=== PATIENT | female | born 1985 | race Caucasian/White ===

== ENCOUNTER → 2016-04-08 | Outpatient (REF) | payer OTHER, MEDICAID, BC ==
[~2016-04-08] MED LIST: ACET50TA PO; ADDERALL 5 MG PO; ANUS2.5C2 TOP; ATIV1TAB2 OR; B12-1CHW PO; BENZ2TAB OR; CLAR10CA3 PO; COLA100C2 OR; DOCU10ELUD PO; FLON0.054; IBUP80TA PO; LEXA1TAB2 PO; LIDO1OIN2 TOP; MUCI600T34 PO; PEPC10TA PO; PRENTAB9 PO; QUETIAPINE 50 MG PO; RISP1TAB41 PO; SUMA100T2 PO; TRAZ50TA OR; TRAZ50TA4 PO; VERA40TA PO; ZOLO100T PO; ZYPR10TA OR; imitrex PO
== END ==
LOC: M LAB REF 13:14
PROVIDERS: ATTEND Physician Assistant
DX: J02.9 Acute pharyngitis, unspecified (principal)

== ENCOUNTER → 2016-07-21 | Outpatient (REF) | payer OTHER | LOC: M SFHCPLAZ 11:25 | PROVIDERS: ATTEND Family Medicine | DX: Z12.4 Encounter for screening for malignant neoplasm of cervix (principal); A59.9 Trichomoniasis, unspecified | CPT/HCPCS: 87491; 87591; G0123 ==

== ENCOUNTER → 2017-10-09 | Outpatient (CLI) | payer OTHER | LOC: M PAIN 10:00 | DX: G89.29 Other chronic pain (principal); M79.1 Myalgia; M54.5 Low back pain; M54.6 Pain in thoracic spine; M47.816 Spondylosis without myelopathy or radiculopathy, lumbar region; F31.9 Bipolar disorder, unspecified; G43.909 Migraine, unspecified, not intractable, without status migrainosus; F17.210 Nicotine dependence, cigarettes, uncomplicated; Z79.899 Other long term (current) drug therapy; Z88.2 Allergy status to sulfonamides | CPT/HCPCS: G0463 ==

== ENCOUNTER → 2017-12-18 | Outpatient (REF) | payer OTHER, MEDICAID ==
[2017-12-18 13:39] LABS: PLATELET COUNT, AUTOMATED 270 10^3/uL (150-450)
[2017-12-18 14:07] LABS: ALBUMIN/GLOBULIN RATIO 1.11 (1.00-1.93); ALKALINE PHOSPHATASE 81 U/L (45-117); ALT/SGPT 27 U/L (12-78); AST/SGOT 15 U/L (7-37); BILIRUBIN,DIRECT < 0.1 MG/DL (0.0-0.2); BILIRUBIN,TOTAL 0.3 MG/DL (0.2-1.0); TOTAL PROTEIN 7.6 GM/DL (6.4-8.2)
== END ==
LOC: M LABDRAW1 12:10
DX: Z79.899 Other long term (current) drug therapy (principal)
CPT/HCPCS: 80076

== ENCOUNTER → 2017-12-25 | Outpatient (CLI) | payer OTHER, MEDICAID ==
[2017-12-25 10:23] LABS: CHOLESTEROL LEVEL 162 MG/DL (<200); CHOLESTEROL RISK RATIO 4.378 (<5); GLUCOSE, FASTING 86 MG/DL (70-100); HDL CHOLESTEROL 37 MG/DL (>40); LDL CHOLESTEROL 107 MG/DL (<100); NON-HDL-C 125 MG/DL; TRIGLYCERIDES LEVEL 90 MG/DL (<150); VALPROIC ACID (DEPAKOTE) 54.7 UG/ML (50.0-100.0)
== END ==
LOC: M LAB 08:47
DX: Z51.81 Encounter for therapeutic drug level monitoring (principal); Z79.899 Other long term (current) drug therapy
CPT/HCPCS: 82947

== ENCOUNTER → 2018-01-19 | Outpatient (CLI) | payer OTHER, MEDICAID ==
[2018-01-19 09:30] LABS: PLATELET COUNT, AUTOMATED 275 10^3/uL (150-450)
[2018-01-19 10:10] LABS: ALBUMIN 3.6 GM/DL (3.2-5.2); ALBUMIN/GLOBULIN RATIO 1.13 (1.00-1.93); ALKALINE PHOSPHATASE 80 U/L (45-117); ALT/SGPT 37 U/L (12-78); AST/SGOT 23 U/L (7-37); BILIRUBIN,DIRECT < 0.1 MG/DL (0.0-0.2); BILIRUBIN,TOTAL 0.2 MG/DL (0.2-1.0); TOTAL PROTEIN 6.8 GM/DL (6.4-8.2); VALPROIC ACID (DEPAKOTE) 61.6 UG/ML (50.0-100.0)
== END ==
LOC: M LAB 08:42
DX: Z79.899 Other long term (current) drug therapy (principal)
CPT/HCPCS: 80164

== ENCOUNTER → 2018-05-14 | Outpatient (REF) | payer OTHER, MEDICAID ==
[~2018-05-14] MED LIST changes: -MUCI600T34 PO; +MUCI600T37 PO; -RISP1TAB41 PO; +RISP1TAB42 PO; +TRAZ-160 PO; -TRAZ50TA4 PO
[2018-05-14 18:59] LABS: INFLUENZA A AMPLIFICATION POSITIVE (NEGATIVE); INFLUENZA B AMPLIFICATION NEGATIVE (NEGATIVE)
== END ==
LOC: M LAB REF 17:22
PROVIDERS: ATTEND Physician Assistant
DX: J11.1 Influenza due to unidentified influenza virus with other respiratory manifestations (principal)

== ENCOUNTER → 2018-06-11 | Outpatient (CLI) | payer OTHER ==
[~2018-06-11] MED LIST changes: -ACET50TA PO; -DOCU10ELUD PO; +DOCU5LIQ PO; +MAPA500T17 PO
[2018-06-11 09:25] LABS: ALBUMIN 3.6 GM/DL (3.2-5.2); ALT/SGPT 53 U/L (12-78); BILIRUBIN,DIRECT < 0.1 MG/DL (0.0-0.2); BILIRUBIN,TOTAL 0.2 MG/DL (0.2-1.0); TOTAL PROTEIN 6.8 GM/DL (6.4-8.2); VALPROIC ACID (DEPAKOTE) 116.2 UG/ML (50.0-100.0)
== END ==
LOC: M LAB 08:30
PROVIDERS: ATTEND Psychiatry & Neurology Psychiatry
DX: Z51.81 Encounter for therapeutic drug level monitoring (principal); Z79.899 Other long term (current) drug therapy

== ENCOUNTER → 2018-06-14 | Outpatient (REF) | payer OTHER | LOC: M LAB REF 14:36 | PROVIDERS: ATTEND Psychiatry & Neurology Psychiatry | DX: Z51.81 Encounter for therapeutic drug level monitoring (principal); Z79.899 Other long term (current) drug therapy ==

== ENCOUNTER → 2019-01-18 | Outpatient (REF) | payer OTHER, MEDICAID ==
[~2019-01-18] MED LIST changes: -TRAZ-160 PO; +TRAZ-252 PO
== END ==
LOC: M LAB REF 11:43
PROVIDERS: ATTEND Physician Assistant Medical
DX: J02.0 Streptococcal pharyngitis (principal)

== ENCOUNTER → 2019-02-05 | Outpatient (REF) | payer OTHER ==
[2019-02-05 13:58] LABS: APPEARANCE, URINE TURBID (CLEAR); BACTERIA, URINE AUTO 2+ (NEGATIVE); BILIRUBIN, URINE AUTO NEGATIVE (NEGATIVE); BLOOD, URINE BLOOD 1+ (NEGATIVE); COLOR, URINE AMBER (YELLOW); GLUCOSE, URINE (UA) AUTO NEGATIVE (NEGATIVE); KETONE, URINE AUTO NEGATIVE (NEGATIVE); LEUKOCYTE ESTERASE, URINE AUTO 3+ (NEGATIVE); NITRITE, URINE AUTO NEGATIVE (NEGATIVE); PROTEIN, URINE AUTO 2+ mg/dL (NEGATIVE); RBC, URINE AUTO 51 /HPF (0-3); SPECIFIC GRAVITY URINE AUTO 1.023 (1.002-1.035); SQUAMOUS EPITHELIAL CELL UR AU 113 /HPF (0-6); WBC, URINE AUTO TNTC /HPF (0-3)
== END ==
LOC: M LAB 13:17
PROVIDERS: ATTEND Nurse Practitioner Family
DX: R30.0 Dysuria (principal)

== ENCOUNTER → 2019-02-19 | Outpatient (REF) | payer OTHER, MEDICAID ==
[2019-02-19 18:30] LABS: APPEARANCE, URINE CLOUDY (CLEAR); BILIRUBIN, URINE AUTO NEGATIVE (NEGATIVE); BLOOD, URINE BLOOD NEGATIVE (NEGATIVE); COLOR, URINE YELLOW (YELLOW); GLUCOSE, URINE (UA) AUTO NEGATIVE (NEGATIVE); KETONE, URINE AUTO NEGATIVE (NEGATIVE); LEUKOCYTE ESTERASE, URINE AUTO 3+ (NEGATIVE); NITRITE, URINE AUTO NEGATIVE (NEGATIVE); PROTEIN, URINE AUTO 1+ mg/dL (NEGATIVE); SPECIFIC GRAVITY URINE AUTO 1.019 (1.002-1.035); UROBILINOGEN, URINE AUTO 0.2 mg/dL (0.0-2.0)
[2019-02-19 18:34] LABS: BACTERIA, URINE SMALL AMOUNT; SQUAMOUS EPITHELIAL CELL URINE SMALL AMOUNT /hpf (SMALL AMT); TRICHOMONAS, URINE SMALL AMOUNT
[2019-02-19 18:40] LABS: HYALINE CAST, URINE NONE SEEN /lpf (0-1)
[2019-02-19 19:44] LABS: CHLAMYDIA DNA AMPLIFICATION NEGATIVE (NEGATIVE); GC DNA AMPLIFICATION NEGATIVE (NEGATIVE)
== END ==
LOC: M LAB REF 10:30
PROVIDERS: ATTEND Physician Assistant
DX: N39.0 Urinary tract infection, site not specified (principal)

== ENCOUNTER → 2019-03-21 | Outpatient (REF) | payer OTHER ==
[2019-03-21 21:17] LABS: APPEARANCE, URINE HAZY (CLEAR); BACTERIA, URINE AUTO 1+ (NEGATIVE); BILIRUBIN, URINE AUTO NEGATIVE (NEGATIVE); BLOOD, URINE BLOOD NEGATIVE (NEGATIVE); COLOR, URINE STRAW (YELLOW); GLUCOSE, URINE (UA) AUTO NEGATIVE (NEGATIVE); KETONE, URINE AUTO NEGATIVE (NEGATIVE); LEUKOCYTE ESTERASE, URINE AUTO NEGATIVE (NEGATIVE); NITRITE, URINE AUTO NEGATIVE (NEGATIVE); PROTEIN, URINE AUTO NEGATIVE (NEGATIVE); RBC, URINE AUTO 1 /HPF (0-3); SPECIFIC GRAVITY URINE AUTO 1.002 (1.002-1.035); SQUAMOUS EPITHELIAL CELL UR AU 6 /HPF (0-6); UROBILINOGEN, URINE AUTO 0.2 mg/dL (0.0-2.0); WBC, URINE AUTO 1 /HPF (0-3)
== END ==
LOC: M LAB REF 21:06
PROVIDERS: ATTEND Physician Assistant
DX: N39.0 Urinary tract infection, site not specified (principal)

== ENCOUNTER → 2019-04-06 | Outpatient (REF) | payer OTHER ==
[2019-04-06 20:21] LABS: APPEARANCE, URINE CLOUDY (CLEAR); BACTERIA, URINE AUTO NEGATIVE (NEGATIVE); BILIRUBIN, URINE AUTO NEGATIVE (NEGATIVE); BLOOD, URINE BLOOD NEGATIVE (NEGATIVE); COLOR, URINE YELLOW (YELLOW); GLUCOSE, URINE (UA) AUTO NEGATIVE (NEGATIVE); KETONE, URINE AUTO NEGATIVE (NEGATIVE); LEUKOCYTE ESTERASE, URINE AUTO TRACE (NEGATIVE); MUCUS, URINE SMALL (NEGATIVE); NITRITE, URINE AUTO NEGATIVE (NEGATIVE); PROTEIN, URINE AUTO NEGATIVE (NEGATIVE); RBC, URINE AUTO 5 /HPF (0-3); SPECIFIC GRAVITY URINE AUTO 1.016 (1.002-1.035); SQUAMOUS EPITHELIAL CELL UR AU 17 /HPF (0-6); UROBILINOGEN, URINE AUTO 0.2 mg/dL (0.0-2.0); WBC, URINE AUTO 5 /HPF (0-3)
== END ==
LOC: M LAB REF 19:54
PROVIDERS: ATTEND Physician Assistant
DX: N39.0 Urinary tract infection, site not specified (principal)

== ENCOUNTER → 2019-04-14 | Outpatient (REF) | payer OTHER ==
[2019-04-14 16:29] LABS: INFLUENZA A AMPLIFICATION NEGATIVE (NEGATIVE); INFLUENZA B AMPLIFICATION NEGATIVE (NEGATIVE)
== END ==
LOC: M LAB REF 15:11
PROVIDERS: ATTEND Physician Assistant
DX: J10.1 Influenza due to other identified influenza virus with other respiratory manifestations (principal)

== ENCOUNTER → 2019-04-14 | Outpatient (REF) | payer OTHER | LOC: M LAB REF 13:27 | PROVIDERS: ATTEND Physician Assistant | DX: R30.0 Dysuria (principal) ==

== ENCOUNTER → 2019-04-21 | Outpatient (REF) | payer OTHER ==
[~2019-04-21] MED LIST changes: +ALLE10TA62 PO; +BACL10TA2 PO; +BUSP30TA PO; +GABA600T4 PO; +INVE234I IM; +MELO15TA28 PO; +METH1TAB40 PO; +MUCI600T31 PO; +OSEL75CA2 PO; +VALA1TAB5 PO; +VERA120C3 PO; +VYVA50CA4 PO
[2019-04-21 12:26] LABS: APPEARANCE, URINE CLEAR (CLEAR); BACTERIA, URINE AUTO NEGATIVE (NEGATIVE); BILIRUBIN, URINE AUTO NEGATIVE (NEGATIVE); BLOOD, URINE BLOOD NEGATIVE (NEGATIVE); COLOR, URINE STRAW (YELLOW); GLUCOSE, URINE (UA) AUTO NEGATIVE (NEGATIVE); KETONE, URINE AUTO NEGATIVE (NEGATIVE); LEUKOCYTE ESTERASE, URINE AUTO NEGATIVE (NEGATIVE); NITRITE, URINE AUTO NEGATIVE (NEGATIVE); PROTEIN, URINE AUTO NEGATIVE (NEGATIVE); RBC, URINE AUTO 0 /HPF (0-3); SPECIFIC GRAVITY URINE AUTO 1.003 (1.002-1.035); SQUAMOUS EPITHELIAL CELL UR AU 2 /HPF (0-6); UROBILINOGEN, URINE AUTO 0.2 mg/dL (0.0-2.0); WBC, URINE AUTO 0 /HPF (0-3)
== END ==
LOC: M SFHCPLAZ 11:38
PROVIDERS: ATTEND Family Medicine
DX: Z12.4 Encounter for screening for malignant neoplasm of cervix (principal); R30.0 Dysuria

== ENCOUNTER 2019-04-24 08:25 | Inpatient (IN) | payer MEDICAID, OTHER ==
[~2019-04-24] VITALS: Ht 160 cm; Wt 74.6 kg
[~2019-04-24 08:25] MED LIST changes: -ALLE10TA62 PO; -BACL10TA2 PO; -BUSP30TA PO; -GABA600T4 PO; -INVE234I IM; -MELO15TA28 PO; -METH1TAB40 PO; -MUCI600T31 PO; -OSEL75CA2 PO; -VALA1TAB5 PO; -VERA120C3 PO; -VYVA50CA4 PO
[2019-04-24] MEDS ORDERED: NS 1,000 ML IV ONE (08:45)
[2019-04-24 08:55] LABS: VENOUS BASE EXCESS -1.4 (-2.0-2.0); VENOUS HCO3 22.2 MEQ/L (23.0-27.0); VENOUS O2 SATURATION 98.3 % (60.0-80.0); VENOUS PARTIAL PRESSURE CO2 34.5 mmHg (38.0-50.0); VENOUS PARTIAL PRESSURE O2 104.5 mmHg (30.0-50.0); VENOUS PH 7.426 UNITS (7.330-7.430); VENOUS STANDARD HCO3 23.3 MEQ/L; VENOUS TOTAL CO2 23.2 MEQ/L (24.0-28.0)
[2019-04-24 09:00] LABS: BASO % 0.3 % (0.0-1.0); EOS # 0.2 10^3/uL (0.0-0.5); EOS % 2.6 % (0.0-3.0); HEMATOCRIT 43.8 % (36.0-47.0); HEMOGLOBIN 15.1 g/dl (12.0-15.5); LYMPH # 1.3 10^3/uL (1.5-5.0); LYMPH % 20.6 % (24.0-44.0); MEAN CORPUSCULAR HGB CONC 34.5 g/dl (32.0-36.5); MEAN CORPUSCULAR VOLUME 92.8 fl (80.0-96.0); MONO # 0.4 10^3/uL (0.0-0.8); MONO % 5.8 % (0.0-5.0); NEUTROPHILS # 4.6 10^3/uL (1.5-8.5); NEUTROPHILS % 70.5 % (36.0-66.0); PLATELET COUNT, AUTOMATED 283 10^3/uL (150-450); RED BLOOD COUNT 4.72 10^6/uL (4.00-5.40); WHITE BLOOD COUNT 6.5 10^3/uL (4.0-10.0)
[2019-04-24] MEDS: VERAPAMIL 120 MG SR TAB PO SCH (09:00)
[2019-04-24] MEDS ORDERED: METH1TAB40 PO (09:04)
[2019-04-24] MEDS ORDERED: VERA120C3 PO (09:04)
[2019-04-24] MEDS ORDERED: MELO15TA28 PO (09:04)
[2019-04-24] MEDS ORDERED: BACL10TA2 PO (09:04)
[2019-04-24] MEDS ORDERED: OSEL75CA2 PO (09:04)
[2019-04-24] MEDS ORDERED: VALA1TAB5 PO (09:04)
[2019-04-24] MEDS ORDERED: GABA600T4 PO (09:04)
[2019-04-24] MEDS ORDERED: ALLE10TA62 PO (09:04)
[2019-04-24] MEDS ORDERED: BUSP30TA PO (09:04)
--- NOTE | 2019-04-24 09:33 | REP ---
CT of the brain without IV contrast: Comparison is 12/17/2014. There is no acute intracranial hemorrhage. There is no edema, mass effect or midline shift. The ventricles are normal size and midline. The cortical stripe is unremarkable. The visualized paranasal sinuses and mastoid air cells are clear. Impression: Essentially negative emergency CT study of the brain. There is no interval change. Electronically Signed by Boo Perez MD 04/24/2019 09:25 A
--- NOTE | 2019-04-24 09:38 | REP ---
Portable chest, 09:11 a.m., single AP view with the patient semi upright: Comparison is the PA and lateral chest dated 11/11/2013. The lung mcgrath are clear. The cardiac size is normal. The nathan, mediastinum, and skeletal structures are unremarkable. Impression: Negative portable chest. There is no interval change. Electronically Signed by Boo Perez MD 04/24/2019 09:29 A
[2019-04-24 09:44] LABS: OSMOLALITY SERUM 294 MOSM/KG (275-295)
[2019-04-24 09:48] LABS: BLOOD UREA NITROGEN 13 MG/DL (7-18); CALCIUM LEVEL 8.8 MG/DL (8.5-10.1); CARBON DIOXIDE LEVEL 22 MEQ/L (21-32); CHLORIDE LEVEL 109 MEQ/L (98-107); CREATININE FOR GFR 0.66 MG/DL (0.55-1.30); GLOMERULAR FILTRATION RATE > 60.0 (>60); GLUCOSE, FASTING 99 MG/DL (70-100); POTASSIUM SERUM 4.6 MEQ/L (3.5-5.1); SODIUM LEVEL 140 MEQ/L (136-145)
[2019-04-24 09:49] LABS: ACETAMINOPHEN LEVEL < 2.0 UG/ML (10.0-30.0); ALBUMIN 4.4 GM/DL (3.2-5.2); ALT/SGPT 40 U/L (12-78); BILIRUBIN,DIRECT < 0.1 MG/DL (0.0-0.2); BILIRUBIN,TOTAL 0.5 MG/DL (0.2-1.0); CPK CREATINE PHOSPHOKINASE 221 U/L (26-192); ETHYL ALCOHOL (ETHANOL) < 0.003 % (0.000-0.010); SALICYLATE LEVEL 4.4 MG/DL (5.0-30.0); TOTAL PROTEIN 7.6 GM/DL (6.4-8.2); TROPONIN I < 0.02 NG/ML (< 0.10)
[2019-04-24 10:35] LABS: AMPHETAMINES LEVEL URINE NEGATIVE (NEGATIVE); BARBITURATES URINE NEGATIVE (NEGATIVE); BENZODIAZEPINES URINE NEGATIVE (NEGATIVE); CANNABINOIDS URINE POSITIVE (NEGATIVE); COCAINE METABOLITE URINE NEGATIVE (NEGATIVE); METHADONE URINE NEGATIVE (NEGATIVE); OPIATES URINE NEGATIVE (NEGATIVE); PHENCYCLIDINE URINE NEGATIVE (NEGATIVE)
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
[2019-04-24] MEDS ORDERED: B12-1CHW PO (13:24)
[2019-04-24] MEDS ORDERED: INVE234I IM (13:24)
[2019-04-24] MEDS ORDERED: VYVA50CA4 PO (13:24)
[2019-04-24] MEDS ORDERED: MUCI600T31 PO (13:24)
[2019-04-24] MEDS ORDERED: LORazepam 2 MG/ML VIAL (J2060) IV STA (13:49)
[2019-04-24] MEDS ORDERED: MAALOX 30 ML SUSP *UDC PO PRN (14:00)
[2019-04-24 16:07] VITALS: BP 135/75
[2019-04-24] MEDS: GABAPENTIN 300 MG CAP PO SCH ×2 (17:24→20:08)
[2019-04-24] MEDS: LORazepam 1 MG TAB PO SCH ×2 (18:03→23:54)
--- NOTE | 2019-04-24 20:56 | ECGEPIP ---
[facility] - ED Test Date: 2019-04-24 Pat Name: BEATRICE HURST Department: Room: - Gender: Female Director Of Investigations: : 1985 Requested By: EDNA Davey Order Number: [id number] Reading MD: Cristiane Vega Measurements Intervals [place] Rate: 86 P: 43 WY: 140 QRS: 66 QRSD: 96 T: 41 QT: 370 QTc: 444 Interpretive Statements SINUS RHYTHM SIMILAR 11/16/14 Electronically Signed on 04-24-2019 20:56:18 EST by Cristiane Vega
[2019-04-24] MEDS: ACETAMINOPHEN TAB 650MG DOSE (2X325MG) PO PRN (21:59)
[2019-04-25] MEDS: LORazepam 1 MG TAB PO SCH (05:36)
[2019-04-25 06:48] VITALS: BP 120/83
[2019-04-25] MEDS: VERAPAMIL 120 MG SR TAB PO SCH (08:36)
[2019-04-25] MEDS: GABAPENTIN 300 MG CAP PO SCH ×3 (08:36→20:11)
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
[2019-04-25] MEDS ORDERED: CETIRIZINE (ZyrTEC) 10 MG TAB PO SCH (09:00)
[2019-04-25] MEDS ORDERED: SERTRALINE HCL 25 MG TABLET PO ONE (11:00)
[2019-04-25] MEDS: LORazepam 0.5 MG TAB PO SCH ×3 (11:28→23:17)
[2019-04-25] MEDS: NICOTINE 21MG/24HR 1 EA TRANSDERMAL TD SCH (11:30)
[2019-04-25] MEDS: ACETAMINOPHEN TAB 650MG DOSE (2X325MG) PO PRN (14:54)
--- NOTE | 2019-04-25 15:18 | HPEPDOC ---
General Date of Admission Apr 24, 2019 at 13:50 Date of Service: Apr 25, 2019 Chief Complaint The patient is a 33-year-old female admitted with a reason for visit of Unspecified Depressive Disorder. History of Present Illness 33 year old female admitted to [facility] for unspecified psychotic disorder. Patient is awake and alert, denies fever/chills, n/v/d, abdominal pain, shortness of breath, urinary complaints. Complaining of substernal chest pain, worse on inspiration/expiration. Also with mild soar throat. Recently got over URI was s tarted on PO antibiotics, finished the course 5 days ago. States had significant amount of cough which has since resolved. Home Medications Scheduled Buspirone HCl (Buspirone HCl) 30 Mg Tablet, 30 MG PO BID, (Reported) Cetirizine HCl (24Hour Allergy) 10 Mg Tablet, 10 MG PO DAILY, (Reported) Gabapentin (Gabapentin) 600 Mg Tablet, 1 TAB PO TID, (Reported) Lisdexamfetamine Dimesylate (Vyvanse) 50 Mg Capsule, 50 MG PO DAILY, (Reported) PCP TOLD PATIENT TOLD HOLD MEDICATION Mecobalamin (B12 Active) 1,000 Mcg Tab.chew, 1,000 MCG PO DAILY, (Reported) Meloxicam (Meloxicam) 15 Mg Tablet, 15 MG PO DAILY, (Reported) Oseltamivir Phosphate (Oseltamivir Phosphate) 75 Mg Capsule, 75 MG PO DAILY, (Reported) Paliperidone Palmitate (Invega Sustenna) 234 Mg/1.5 Ml Syringe, 234 MG IM QMONTH, (Reported) Valacyclovir HCl (Valacyclovir) 1,000 Mg Tablet, 1 GM PO DAILY, (Reported) Verapamil HCl (Verapamil Sr) 120 Mg Cap24h.pel, 120 MG PO DAILY, (Reported) Scheduled PRN Baclofen (Baclofen) 10 Mg Tablet, 10 MG PO BIDP PRN for SPASMS, (Reported) Guaifenesin (Mucinex) 600 Mg Tab.er.12h, 600 MG PO BID PRN for COUGH, (Reported) Methocarbamol (Methocarbamol) 500 Mg Tablet, 500 TAB PO BID PRN for SPASMS, (Reported) Allergies Coded Allergies: Sulfa (Sulfonamide Antibiotics) (Verified Allergy, Unknown, Hives, 04/24/19) Past Medical History Medical History cluster headaches, back pain, depression Surgical History none Family History Significant Family History: No pertinent family hx Social History * Smoker: Denies Alcohol: Denies Drugs: denies A-FIB/CHADSVASC A-FIB History Current/History of A-Fib/PAF?: No Review of Systems Constitutional: Denies: Chills, Fever, Night Sweats Eyes: Denies: Pain, Vision change ENT: Reports: Sore Throat; Denies: Head Aches, Ear Pain, Dysphagia Skin: Denies: Rash, Lesions, Breakdown Pulmonary: Denies: Dyspnea, Cough Cardiovascular: Denies: Chest Pain, Palpitations, Orthopnea, Paroxysmal Noc. Dyspnea, Lt Headedness Gastrointestinal: Denies: Nausea, Vomiting, Abdominal Pain, Diarrhea Genitourinary: Denies: Dysuria, Frequency, Incontinence, Retention Hematologic: Denies: Bruising, Bleeding Excessively Musculoskeletal: Denies: Neck Pain, Back Pain, Joint Pain, Muscle Pain, Spasms Neurological: Denies: Weakness, Numbness, Change in speech, Confusion Psych: Reports: Mood Normal; Denies: Depression, Memory Issues Physical Examination General Exam: Positive: Alert, No Acute Distress Eye Exam: Positive: PERRLA, Conjunctiva & lids normal, EOMI; Negative: Sclera icteric ENT Exam: Positive: Atraumatic, Mucous membr. moist/pink, Pharynx Normal, Other ENT (no signs of pharyngeal inflammation.) Neck Exam: Positive: Supple; Negative: JVD, thyromegaly Chest Exam: Positive: Clear to auscultation, Normal air movement, Other (tenderness mild midsternal, reproducible) Heart Exam: Positive: Rate Normal, Regular Rhythm, Normal S1, Normal S2; Negative: Murmurs, Rubs Telemetry: Positive: No significant arrhythmia Abdomen Exam: Positive: Normal bowel sounds, Soft; Negative: Tenderness, Hepatospenomegaly Extremity Exam: Positive: Normal pulses; Negative: Clubbing, Cyanosis, Edema Skin Exam: Positive: Nl turgor and temperature; Negative: Breakdown, Lesion Neuro Exam: Positive: Normal Gait, Normal Speech, Cranial Nerves 3-12 NL, Reflexes 2+ Psych Exam: Positive: Mental status NL, Mood NL, Oriented x 3 Vital Signs Vital Signs Date Time Temp Pulse Resp B/P (MAP) Pulse Ox O2 Delivery O2 Flow Rate FiO2 2/24/20 08:36 97 120/78 04/25/19 06:48 98.5 20 Room Air 04/24/19 12:30 100 Laboratory Data Microbiology Microbiology 04/24/19 Blood Culture - Preliminary, Resulted No growth after 24 hours . All specim... 04/24/19 Blood Culture - Preliminary, Resulted No growth after 24 hours . All specim... Assessment/Plan 1. cluster headaches - continue verapamil. 2. insomnia - trazadone prn. 3. lower back pain - continue muscle relaxants. 4. chest wall pain - reproducible on exam, likely from recent URI. - msk in nature, ibuprofen prn. 5. depression - continue sertraline. - management per psychiatry. 6. catatonia - continue ativan. - management per psychiatry. 7. soar throat - no signs/symptoms on exam. - no pharyngeal edema/inflammation noted. - lozenges prn. Please reconsult as needed. Thank you. Plan / VTE VTE Prophylaxis Ordered?: No MANASA TEJEDA MD Apr 25, 2019 15:18
[2019-04-25 15:48] VITALS: BP 128/66
[2019-04-25] MEDS: MOM 30ML SUSPENSION UDC PO PRN (20:11)
[2019-04-25] MEDS: CETIRIZINE (ZyrTEC) 10 MG TAB PO SCH (20:11)
[2019-04-25] MEDS: traZODone 50 MG TAB PO PRN (21:34)
[2019-04-26] MEDS: ACETAMINOPHEN TAB 650MG DOSE (2X325MG) PO PRN (00:49)
[2019-04-26] MEDS: LORazepam 0.5 MG TAB PO SCH ×4 (06:05→23:50)
[2019-04-26 06:55] VITALS: BP 134/78
[2019-04-26] MEDS: SERTRALINE HCL 25 MG TABLET PO SCH (08:23)
[2019-04-26] MEDS: VERAPAMIL 120 MG SR TAB PO SCH (08:24)
[2019-04-26] MEDS: MOM 30ML SUSPENSION UDC PO PRN (08:24)
[2019-04-26] MEDS: GABAPENTIN 300 MG CAP PO SCH ×3 (08:24→20:04)
[2019-04-26] MEDS: NICOTINE 21MG/24HR 1 EA TRANSDERMAL TD SCH (08:24)
[2019-04-26 16:00] VITALS: BP 137/88
[2019-04-26] MEDS: CETIRIZINE (ZyrTEC) 10 MG TAB PO SCH (20:04)
--- NOTE | 2019-04-26 23:56 | MHIPN ---
DATE: 04/26/2019 The patient today states, "I've been confused for awhile." She states that she is feeling really foggy, she is tearful, she admits to auditory hallucinations but she is very guarded as to what they are saying to her. But she states that they are not telling her to harm herself or anybody else. She states, "I am feeling depressed." She admits that she started to use cannabis again. She is also very somatic, complaining of multiple physical symptoms, stating that she has had to urinate too often, that her throat hurt, and she thinks there is something wrong with her bowel movements. MENTAL STATUS EXAM: The patient is alert, and she is oriented to person. At one point, she was not even sure that she was in the hospital. She speaks in a monotone, experiences a lot of thought blocking. There is no formal thought disorder noted. Her mood is depressed. Affect is full range and appropriate to mood. She is having auditory hallucinations, and I believe some somatic delusions possibly. She is not suicidal or homicidal. Concentration is poor. Memory is grossly intact. Insight and judgment is poor. DIAGNOSIS: Schizoaffective disorder. TREATMENT PLAN: At this point, the patient will continue to be monitored for her psychotic symptoms and confusion. The patient is being treated with Ativan for catatonia upon admission, and she was started on Zoloft due to her complaints of depression. She should be continued on her Invega Sustenna monthly injections. She will hopefully be stabilized to followup as an outpatient again.
[2019-04-27] MEDS: LORazepam 0.5 MG TAB PO SCH (05:37)
[2019-04-27 06:50] VITALS: BP 135/63
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
[2019-04-27] MEDS: VERAPAMIL 120 MG SR TAB PO SCH (10:12)
[2019-04-27] MEDS: SERTRALINE HCL 25 MG TABLET PO SCH (10:12)
[2019-04-27] MEDS: GABAPENTIN 300 MG CAP PO SCH ×3 (10:12→20:00)
[2019-04-27] MEDS ORDERED: OLANZapine ORAL DISINTEGRATING TAB 5MG PO ONE ×2 (12:00→13:00)
[2019-04-27] MEDS: NICOTINE 21MG/24HR 1 EA TRANSDERMAL TD SCH (12:25)
[2019-04-27] MEDS: MOM 30ML SUSPENSION UDC PO PRN (13:18)
[2019-04-27 16:00] VITALS: BP 139/93
[2019-04-27] MEDS: CETIRIZINE (ZyrTEC) 10 MG TAB PO SCH (20:00)
[2019-04-27] MEDS: OLANZapine ORAL DISINTEGRATING TAB 5MG PO SCH (20:00)
[2019-04-27] MEDS: ACETAMINOPHEN TAB 650MG DOSE (2X325MG) PO PRN (20:00)
[2019-04-28 06:35] VITALS: BP 121/70
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
[2019-04-28] MEDS ORDERED: SERTRALINE HCL 50 MG TAB PO SCH (09:00)
[2019-04-28] MEDS: NICOTINE 21MG/24HR 1 EA TRANSDERMAL TD SCH (09:46)
[2019-04-28] MEDS: VERAPAMIL 120 MG SR TAB PO SCH (09:46)
[2019-04-28] MEDS: GABAPENTIN 300 MG CAP PO SCH ×3 (09:46→20:55)
[2019-04-28] MEDS: LORazepam 0.5 MG TAB PO SCH (09:47)
[2019-04-28] MEDS: OLANZapine ORAL DISINTEGRATING TAB 5MG PO PRN (14:28)
[2019-04-28 18:00] VITALS: BP 126/68
[2019-04-28] MEDS: OLANZapine ORAL DISINTEGRATING TAB 5MG PO SCH (20:45)
[2019-04-28] MEDS: CETIRIZINE (ZyrTEC) 10 MG TAB PO SCH (21:00)
[2019-04-29] MEDS: GABAPENTIN 300 MG CAP PO SCH ×3 (09:09→20:27)
[2019-04-29] MEDS: VERAPAMIL 120 MG SR TAB PO SCH (09:13)
[2019-04-29] MEDS: SERTRALINE HCL 50 MG TAB PO SCH (09:19)
[2019-04-29] MEDS: LORazepam 0.5 MG TAB PO SCH (09:19)
[2019-04-29] MEDS: NICOTINE 21MG/24HR 1 EA TRANSDERMAL TD SCH (09:20)
[2019-04-29] MEDS: ACETAMINOPHEN TAB 650MG DOSE (2X325MG) PO PRN (12:17)
[2019-04-29] MEDS: OLANZapine ORAL DISINTEGRATING TAB 5MG PO PRN (13:03)
[2019-04-29 16:00] VITALS: BP 127/83
[2019-04-29] MEDS: CETIRIZINE (ZyrTEC) 10 MG TAB PO SCH (20:26)
[2019-04-29] MEDS: OLANZapine ORAL DISINTEGRATING TAB 5MG PO SCH (20:27)
[2019-04-30] MEDS: OLANZapine ORAL DISINTEGRATING TAB 5MG PO PRN ×2 (06:33→21:43)
[2019-04-30 06:40] VITALS: BP 152/78
[2019-04-30] MEDS: LORazepam 0.5 MG TAB PO SCH (09:20)
[2019-04-30] MEDS: VERAPAMIL 120 MG SR TAB PO SCH (09:20)
[2019-04-30] MEDS: SERTRALINE HCL 50 MG TAB PO SCH (09:21)
[2019-04-30] MEDS: GABAPENTIN 300 MG CAP PO SCH ×3 (09:21→21:03)
[2019-04-30] MEDS: NICOTINE 21MG/24HR 1 EA TRANSDERMAL TD SCH (09:28)
[2019-04-30 16:15] VITALS: BP 134/99
[2019-04-30] MEDS: CETIRIZINE (ZyrTEC) 10 MG TAB PO SCH (21:03)
[2019-04-30] MEDS: traZODone 50 MG TAB PO PRN (21:03)
[2019-04-30] MEDS: OLANZapine ORAL DISINTEGRATING TAB 5MG PO SCH (21:03)
[2019-04-30] MEDS ORDERED: LORazepam 0.5 MG TAB PO ONE (22:30)
[2019-05-01 06:47] VITALS: BP 126/87
[2019-05-01] MEDS: LORazepam 0.5 MG TAB PO SCH (08:35)
[2019-05-01] MEDS: SERTRALINE HCL 50 MG TAB PO SCH (08:35)
[2019-05-01] MEDS: GABAPENTIN 300 MG CAP PO SCH ×3 (08:35→21:18)
[2019-05-01] MEDS: VERAPAMIL 120 MG SR TAB PO SCH (08:37)
[2019-05-01] MEDS: NICOTINE 21MG/24HR 1 EA TRANSDERMAL TD SCH (08:42)
[2019-05-01] MEDS: OLANZapine ORAL DISINTEGRATING TAB 5MG PO PRN (10:50)
[2019-05-01 16:09] VITALS: BP 136/88
[2019-05-01] MEDS ORDERED: LORazepam 0.5 MG TAB PO ONE (16:30)
[2019-05-01] MEDS: OLANZapine ORAL DISINTEGRATING TAB 5MG PO SCH (21:18)
[2019-05-01] MEDS: CETIRIZINE (ZyrTEC) 10 MG TAB PO SCH (21:18)
[2019-05-02 06:34] VITALS: BP 136/68
[2019-05-02] MEDS: NICOTINE 21MG/24HR 1 EA TRANSDERMAL TD SCH ×2 (08:23→12:43)
[2019-05-02] MEDS: SERTRALINE HCL 50 MG TAB PO SCH (08:26)
[2019-05-02] MEDS: GABAPENTIN 300 MG CAP PO SCH ×3 (08:26→21:37)
[2019-05-02] MEDS: VERAPAMIL 120 MG SR TAB PO SCH (08:27)
[2019-05-02] MEDS: LORazepam 0.5 MG TAB PO SCH (08:32)
[2019-05-02 16:20] VITALS: BP 124/79
[2019-05-02] MEDS: CETIRIZINE (ZyrTEC) 10 MG TAB PO SCH (21:36)
[2019-05-02] MEDS: OLANZapine ORAL DISINTEGRATING TAB 5MG PO SCH (21:37)
[2019-05-02] MEDS: traZODone 50 MG TAB PO PRN (22:19)
[2019-05-03 06:34] VITALS: BP_SYST 134; BP_DIAS 57; BP_DIAS 67
[2019-05-03 07:58] VITALS: BP 132/66
[2019-05-03] MEDS: VERAPAMIL 120 MG SR TAB PO SCH (08:01)
[2019-05-03] MEDS: SERTRALINE HCL 50 MG TAB PO SCH (08:01)
[2019-05-03] MEDS: PILL CUTTER 1 EACH XX PRN (08:01)
[2019-05-03] MEDS: GABAPENTIN 300 MG CAP PO SCH ×3 (08:01→20:40)
[2019-05-03] MEDS: NICOTINE 21MG/24HR 1 EA TRANSDERMAL TD SCH (08:02)
[2019-05-03] MEDS: LORazepam 0.5 MG TAB PO SCH (08:03)
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
[2019-05-03] MEDS: ACETAMINOPHEN TAB 650MG DOSE (2X325MG) PO PRN (15:17)
[2019-05-03] MEDS: OLANZapine ORAL DISINTEGRATING TAB 5MG PO PRN (15:18)
[2019-05-03 16:04] VITALS: BP 128/85
[2019-05-03] MEDS ORDERED: LORazepam 0.5 MG TAB PO STA (19:27)
[2019-05-03] MEDS: OLANZapine ORAL DISINTEGRATING TAB 5MG PO SCH (20:39)
[2019-05-03] MEDS: CETIRIZINE (ZyrTEC) 10 MG TAB PO SCH (20:40)
[2019-05-04 06:31] VITALS: BP 142/72
[2019-05-04] MEDS: GABAPENTIN 300 MG CAP PO SCH ×3 (08:57→20:30)
[2019-05-04] MEDS: SERTRALINE HCL 50 MG TAB PO SCH (08:58)
[2019-05-04] MEDS: PILL CUTTER 1 EACH XX PRN (08:58)
[2019-05-04] MEDS: VERAPAMIL 120 MG SR TAB PO SCH (08:58)
[2019-05-04] MEDS: LORazepam 0.5 MG TAB PO SCH ×2 (08:58→11:45)
[2019-05-04] MEDS: ACETAMINOPHEN TAB 650MG DOSE (2X325MG) PO PRN (09:00)
[2019-05-04] MEDS: NICOTINE 21MG/24HR 1 EA TRANSDERMAL TD SCH (09:05)
[2019-05-04] MEDS: VYVANSE 50 MG PO SCH (13:10)
[2019-05-04 16:26] VITALS: BP 110/60
[2019-05-04] MEDS ORDERED: LORazepam 1 MG TAB PO STA (18:13)
[2019-05-04] MEDS: hydrOXYzine 25 MG TAB PO PRN (18:32)
--- NOTE | 2019-05-04 19:00 | MHIPN ---
DATE: 05/04/2019 VITAL SIGNS: Blood pressure 142/72, pulse 104, temperature 99.6. CHIEF COMPLAINT: She says she feels her "skin crawl." SUBJECTIVE: She is seen for followup, in the presence of staff. She says she feels her skin crawl, but vague on details, she suggests it also occurs when she is moving. She says the night was okay, but did not elaborate. Appetite is okay. She says she has been in touch with her mother, but again vague on this. MENTAL STATUS EXAMINATION: Fairly neat, a bit unkempt, cooperative. She displays some psychomotor retardation. There is no agitation. Answers questions briefly, logically, coherently. She has a restricted affect, with limited range. At present, she does not appear to be internally preoccupied. Denies any suicidal thoughts or intents. No homicidal ideas or intents. She is alert. She is oriented to place and person, not fully to time, though she knew it was early May 2019. Insight and judgment are compromised. ASSESSMENT: 1. Schizoaffective disorder, bipolar type, current episode depressed. 2. The possibility of cannabis use disorder is to be considered. PLAN: She has been on Invega Sustenna 234 mg intramuscular every month for quite awhile, last got it about a month ago. I would suggest resuming it, I spoke with Dr. Nugent, who is known her for many years, and sees her in the outpatient clinic, who agrees with this. We also spoke of decreasing the patient's lorazepam, to 0.25 mg daily and then tapering it off further. She has not been given any Vyvanse, takes 50 mg daily as an outpatient, we will look at resuming that as well. The impact that recent drug use may have had on her current condition is considered. She is to be engaged in parker activities, as tolerated. She will be seeing the assigned psychiatrist tomorrow.
[2019-05-04] MEDS: traZODone 50 MG TAB PO PRN (20:30)
[2019-05-04] MEDS: OLANZapine ORAL DISINTEGRATING TAB 5MG PO SCH (20:30)
[2019-05-04] MEDS: CETIRIZINE (ZyrTEC) 10 MG TAB PO SCH (20:30)
[2019-05-05 07:15] VITALS: BP 118/68
[2019-05-05] MEDS: LORazepam 0.5 MG TAB PO SCH (08:29)
[2019-05-05] MEDS: PILL CUTTER 1 EACH XX PRN (08:31)
[2019-05-05] MEDS: VYVANSE 50 MG PO SCH (08:31)
[2019-05-05] MEDS: NICOTINE 21MG/24HR 1 EA TRANSDERMAL TD SCH (08:32)
[2019-05-05] MEDS: SERTRALINE HCL 50 MG TAB PO SCH (08:32)
[2019-05-05] MEDS: GABAPENTIN 300 MG CAP PO SCH ×3 (08:32→20:20)
[2019-05-05] MEDS: VERAPAMIL 120 MG SR TAB PO SCH (08:32)
[2019-05-05] MEDS: hydrOXYzine 25 MG TAB PO PRN ×2 (08:35→15:26)
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
[2019-05-05] MEDS ORDERED: diphenhydrAMINE 50 MG CAP PO ONE (09:45)
[2019-05-05 11:03] LABS: URINE PREG TEST NEGATIVE (NEGATIVE)
[2019-05-05 11:06] LABS: APPEARANCE, URINE TURBID (CLEAR); BILIRUBIN, URINE AUTO NEGATIVE (NEGATIVE); BLOOD, URINE BLOOD NEGATIVE (NEGATIVE); COLOR, URINE YELLOW (YELLOW); GLUCOSE, URINE (UA) AUTO NEGATIVE (NEGATIVE); KETONE, URINE AUTO NEGATIVE (NEGATIVE); LEUKOCYTE ESTERASE, URINE AUTO NEGATIVE (NEGATIVE); NITRITE, URINE AUTO NEGATIVE (NEGATIVE); PROTEIN, URINE AUTO NEGATIVE (NEGATIVE); SPECIFIC GRAVITY URINE AUTO 1.024 (1.002-1.035); UROBILINOGEN, URINE AUTO 0.2 mg/dL (0.0-2.0)
--- NOTE | 2019-05-05 15:02 | IPNPDOC ---
Text Note Date of Service The patient was seen on 05/05/19. NOTE HPI: Ms. Serrano is a 33-year-old female who was admitted to the [facility] with a diagnosis of, unspecified depressive disorder. Patient reported that she has some abdominal pain and requested to be seen. She states that the pain has been present for some time within the lower abdomen. She has burning upon urination. This is a not been ongoing for several weeks or months, the answer is not defi nitive. Patient reported that she is concerned she might be as the last time she had a similar pain. She was told that she was . She states that she did have an IUD in, but she thought that it had been removed. Patient denied any fever, chills, night sweats, foul urine odor, increased urinary frequency. General Exam: Positive: Alert, No Acute Distress Eye Exam: Positive: Conjunctiva & lids normal; Negative: Sclera icteric ENT Exam: Positive: Atraumatic Neck Exam: Positive: Supple; Negative: thyromegaly Chest Exam: Positive: Clear to auscultation, Normal air movement Heart Exam: Positive: Rate Normal, Regular Rhythm, Normal S1, Normal S2; Negative: Murmurs, Rubs Telemetry: Positive: No significant arrhythmia Abdomen Exam: Positive: Normal bowel sounds, Soft; Negative: Tenderness, Hepatospenomegaly Skin Exam: Positive: Nl turgor and temperature; Negative: Breakdown, Lesion Neuro Exam: Positive: Normal Gait, Normal Speech Psych Exam: Positive: Oriented x 3 Assessment/plan: #1. Lower abdominal pain. Complete UA and urine testboth within normal limits. Suspect bladder spasms secondary to dehydration. Encourage plenty of water, take Tylenol or Ibuprofen prn #2. Schizoaffective disorder, bipolar type. Continued management per psychiatry. Medicine will sign off on the patient at this time. Please reconsult as needed. VS,Fishbone, I+O VS, Fishbone, I+O Vital Signs Date Time Temp Pulse Resp B/P (MAP) Pulse Ox O2 Delivery O2 Flow Rate FiO2 05/05/19 08:32 93 130/83 05/05/19 07:15 98.2 16 05/03/19 07:58 96 05/03/19 06:34 Room Air TYLER ROACH PA-C May 05, 2019 15:02
[2019-05-05] MEDS: ACETAMINOPHEN TAB 650MG DOSE (2X325MG) PO PRN (15:35)
[2019-05-05 16:23] VITALS: BP 124/63
[2019-05-05] MEDS: OLANZapine ORAL DISINTEGRATING TAB 5MG PO SCH (20:21)
[2019-05-05] MEDS: CETIRIZINE (ZyrTEC) 10 MG TAB PO SCH (20:21)
[2019-05-05] MEDS: diphenhydrAMINE 50 MG CAP PO SCH (20:21)
[2019-05-05] MEDS: traZODone 50 MG TAB PO PRN (21:37)
[2019-05-05] MEDS ORDERED: MIRTAZAPINE 15 MG TAB PO ONE (22:30)
[2019-05-05] MEDS ORDERED: LORazepam 1 MG TAB PO ONE (22:30)
[2019-05-06 06:52] VITALS: BP 129/75
[2019-05-06] MEDS: PILL CUTTER 1 EACH XX PRN (08:38)
[2019-05-06] MEDS: LORazepam 0.5 MG TAB PO SCH (08:38)
[2019-05-06] MEDS: GABAPENTIN 300 MG CAP PO SCH ×3 (08:39→19:40)
[2019-05-06] MEDS: VYVANSE 50 MG PO SCH (08:39)
[2019-05-06] MEDS: SERTRALINE HCL 50 MG TAB PO SCH (08:40)
[2019-05-06] MEDS: VERAPAMIL 120 MG SR TAB PO SCH (08:40)
[2019-05-06] MEDS: diphenhydrAMINE 50 MG CAP PO SCH ×2 (08:40→19:40)
[2019-05-06] MEDS: NICOTINE 21MG/24HR 1 EA TRANSDERMAL TD SCH (08:43)
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
[2019-05-06] MEDS ORDERED: PALIPERIDONE PALMITATE 234MG/1.5ML INJ (INVEGA)(J2426)(FREE PSY INPT ONLY) IM ONE ×2 (09:15→11:30)
[2019-05-06] MEDS: hydrOXYzine 25 MG TAB PO PRN (15:18)
[2019-05-06 16:11] VITALS: BP 127/79
[2019-05-06] MEDS: CETIRIZINE (ZyrTEC) 10 MG TAB PO SCH (19:40)
[2019-05-06] MEDS: OLANZapine ORAL DISINTEGRATING TAB 5MG PO SCH (19:40)
[2019-05-07 05:50] VITALS: BP 117/60
[2019-05-07] MEDS: LORazepam 0.5 MG TAB PO SCH (09:42)
[2019-05-07] MEDS: SERTRALINE HCL 50 MG TAB PO SCH (09:42)
[2019-05-07] MEDS: VERAPAMIL 120 MG SR TAB PO SCH (09:43)
[2019-05-07] MEDS: PILL CUTTER 1 EACH XX PRN (09:43)
[2019-05-07] MEDS: VYVANSE 50 MG PO SCH (09:44)
[2019-05-07] MEDS: diphenhydrAMINE 50 MG CAP PO SCH ×2 (09:44→20:14)
[2019-05-07] MEDS: NICOTINE 21MG/24HR 1 EA TRANSDERMAL TD SCH (09:44)
[2019-05-07] MEDS: GABAPENTIN 300 MG CAP PO SCH ×3 (09:44→20:14)
[2019-05-07 16:08] VITALS: BP 134/76
[2019-05-07] MEDS: hydrOXYzine 25 MG TAB PO PRN (18:13)
[2019-05-07] MEDS: OLANZapine ORAL DISINTEGRATING TAB 5MG PO SCH (20:14)
[2019-05-07] MEDS: CETIRIZINE (ZyrTEC) 10 MG TAB PO SCH (20:14)
[2019-05-08 06:19] VITALS: BP 108/56
[2019-05-08] MEDS: PILL CUTTER 1 EACH XX PRN (08:59)
[2019-05-08] MEDS: LORazepam 0.5 MG TAB PO SCH (08:59)
[2019-05-08] MEDS: GABAPENTIN 300 MG CAP PO SCH ×3 (09:00→20:15)
[2019-05-08] MEDS: diphenhydrAMINE 50 MG CAP PO SCH ×2 (09:00→20:15)
[2019-05-08] MEDS: VYVANSE 50 MG PO SCH (09:00)
[2019-05-08] MEDS: VERAPAMIL 120 MG SR TAB PO SCH (09:01)
[2019-05-08] MEDS: NICOTINE 21MG/24HR 1 EA TRANSDERMAL TD SCH (09:01)
[2019-05-08] MEDS: SERTRALINE HCL 50 MG TAB PO SCH (09:01)
[2019-05-08 16:20] VITALS: BP 129/72
[2019-05-08] MEDS: hydrOXYzine 25 MG TAB PO PRN (17:48)
[2019-05-08] MEDS: ACETAMINOPHEN TAB 650MG DOSE (2X325MG) PO PRN (20:15)
[2019-05-08] MEDS: OLANZapine ORAL DISINTEGRATING TAB 5MG PO SCH (20:15)
[2019-05-08] MEDS: CETIRIZINE (ZyrTEC) 10 MG TAB PO SCH (20:15)
[2019-05-09 06:16] VITALS: BP 98/58
[2019-05-09] MEDS: VYVANSE 50 MG PO SCH (09:38)
[2019-05-09] MEDS: GABAPENTIN 300 MG CAP PO SCH ×3 (09:38→20:42)
[2019-05-09] MEDS: LORazepam 0.5 MG TAB PO SCH (09:39)
[2019-05-09] MEDS: diphenhydrAMINE 50 MG CAP PO SCH ×2 (09:39→20:42)
[2019-05-09] MEDS: SERTRALINE HCL 50 MG TAB PO SCH (09:39)
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
[2019-05-09] MEDS: VERAPAMIL 120 MG SR TAB PO SCH (09:55)
[2019-05-09] MEDS: NICOTINE 21MG/24HR 1 EA TRANSDERMAL TD SCH (09:55)
[2019-05-09] MEDS: hydrOXYzine 25 MG TAB PO PRN ×2 (12:15→19:10)
[2019-05-09 15:39] VITALS: BP 113/72
[2019-05-09] MEDS: CETIRIZINE (ZyrTEC) 10 MG TAB PO SCH (20:42)
[2019-05-09] MEDS: OLANZapine ORAL DISINTEGRATING TAB 5MG PO SCH (20:42)
[2019-05-10 06:06] VITALS: BP 127/55
[2019-05-10] MEDS: diphenhydrAMINE 50 MG CAP PO SCH ×2 (08:48→20:56)
[2019-05-10] MEDS: GABAPENTIN 300 MG CAP PO SCH ×3 (08:48→20:56)
[2019-05-10] MEDS: VYVANSE 50 MG PO SCH (08:48)
[2019-05-10] MEDS: NICOTINE 21MG/24HR 1 EA TRANSDERMAL TD SCH (08:49)
[2019-05-10] MEDS: SERTRALINE HCL 50 MG TAB PO SCH (08:50)
[2019-05-10] MEDS: LORazepam 0.5 MG TAB PO SCH (08:51)
[2019-05-10] MEDS: VERAPAMIL 120 MG SR TAB PO SCH (08:54)
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
[2019-05-10 18:00] VITALS: BP 116/68
[2019-05-10] MEDS: CETIRIZINE (ZyrTEC) 10 MG TAB PO SCH (20:56)
[2019-05-10] MEDS: OLANZapine ORAL DISINTEGRATING TAB 5MG PO SCH (20:56)
[2019-05-11 06:41] VITALS: BP 106/57
[2019-05-11] MEDS: GABAPENTIN 300 MG CAP PO SCH ×4 (09:10→20:47)
[2019-05-11] MEDS: VYVANSE 50 MG PO SCH ×2 (09:10→09:22)
[2019-05-11] MEDS: SERTRALINE HCL 50 MG TAB PO SCH (09:11)
[2019-05-11] MEDS: LORazepam 0.5 MG TAB PO SCH (09:11)
[2019-05-11] MEDS: diphenhydrAMINE 50 MG CAP PO SCH ×2 (09:11→20:47)
[2019-05-11] MEDS: VERAPAMIL 120 MG SR TAB PO SCH (09:12)
[2019-05-11] MEDS: NICOTINE 21MG/24HR 1 EA TRANSDERMAL TD SCH (09:12)
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
[2019-05-11 17:53] VITALS: BP 123/77
[2019-05-11] MEDS: hydrOXYzine 25 MG TAB PO PRN (18:54)
[2019-05-11] MEDS: CETIRIZINE (ZyrTEC) 10 MG TAB PO SCH (20:46)
[2019-05-11] MEDS: traZODone 50 MG TAB PO PRN (20:47)
[2019-05-11] MEDS: OLANZapine ORAL DISINTEGRATING TAB 5MG PO SCH (20:47)
[2019-05-12 06:21] VITALS: BP 103/55
[2019-05-12] MEDS: LORazepam 0.5 MG TAB PO SCH (09:39)
[2019-05-12] MEDS: GABAPENTIN 300 MG CAP PO SCH ×3 (09:39→21:21)
[2019-05-12] MEDS: diphenhydrAMINE 50 MG CAP PO SCH ×2 (09:39→21:22)
[2019-05-12] MEDS: SERTRALINE HCL 50 MG TAB PO SCH (09:40)
[2019-05-12] MEDS: VYVANSE 50 MG PO SCH (09:40)
[2019-05-12] MEDS: VERAPAMIL 120 MG SR TAB PO SCH (09:50)
[2019-05-12] MEDS: NICOTINE 21MG/24HR 1 EA TRANSDERMAL TD SCH (09:51)
--- NOTE | 2019-05-12 09:56 | REP ---
KUB: Single view. History: Abdomen pain. Findings: There is moderate stool in the right and left colon. Urine filled bladder occupies the pelvis. An IUD is seen in place just to the right of midline above the bladder. Flank stripes are intact. Psoas margins are obscured. No mass or organomegaly is seen. No pathologic calcifications appreciated. Impression: Moderate colonic stool. IUD in place. Otherwise negative. Electronically Signed by Mario Montana MD 05/12/2019 09:47 A
[2019-05-12] MEDS: ACETAMINOPHEN TAB 650MG DOSE (2X325MG) PO PRN (10:28)
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
[2019-05-12] MEDS ORDERED: OLANZapine ORAL DISINTEGRATING TAB 5MG PO ONE (10:45)
[2019-05-12] MEDS ORDERED: DOCUSATE SODIUM 100 MG CAP PO ONE (10:45)
[2019-05-12 15:37] VITALS: BP 112/66
[2019-05-12] MEDS: hydrOXYzine 25 MG TAB PO PRN (18:20)
[2019-05-12] MEDS ORDERED: OLANZapine ORAL DISINTEGRATING TAB 5MG PO SCH (21:00)
[2019-05-12] MEDS: CETIRIZINE (ZyrTEC) 10 MG TAB PO SCH (21:21)
[2019-05-12] MEDS: OLANZapine ORAL DISINTEGRATING TAB 5MG PO SCH (21:21)
[2019-05-12] MEDS: traZODone 50 MG TAB PO PRN (21:22)
[2019-05-12] MEDS: DOCUSATE SODIUM 100 MG CAP PO SCH (21:22)
[2019-05-13 06:31] VITALS: BP 118/72
[2019-05-13] MEDS: DOCUSATE SODIUM 100 MG CAP PO SCH ×2 (09:03→21:09)
[2019-05-13] MEDS: diphenhydrAMINE 50 MG CAP PO SCH ×2 (09:03→21:09)
[2019-05-13] MEDS: LORazepam 0.5 MG TAB PO SCH (09:03)
[2019-05-13] MEDS: GABAPENTIN 300 MG CAP PO SCH ×3 (09:04→21:09)
[2019-05-13] MEDS: SERTRALINE HCL 50 MG TAB PO SCH (09:04)
[2019-05-13] MEDS: VERAPAMIL 120 MG SR TAB PO SCH (09:10)
[2019-05-13] MEDS: NICOTINE 21MG/24HR 1 EA TRANSDERMAL TD SCH (09:11)
[2019-05-13] MEDS: OLANZapine ORAL DISINTEGRATING TAB 5MG PO SCH ×3 (09:12→21:10)
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
[2019-05-13] MEDS: hydrOXYzine 25 MG TAB PO PRN (15:58)
[2019-05-13 16:00] VITALS: BP 116/80
[2019-05-13] MEDS ORDERED: LORazepam 2 MG TAB PO ONE (18:00)
--- NOTE | 2019-05-13 20:09 | IPNPDOC ---
Text Note Date of Service The patient was seen on 05/12/19. NOTE Patient complained of diffuse abdominal pain. Patient reported she had not had a BM for 6 days. No changes in urine. Patient was tearful and appeared uncomfortable. no fever/chills. Plan: KUB Impression: "Moderate colonic stool. IUD in place. Otherwise negative." - Milk of magnesia, Docusate, encouraged to increase fluid intake, monitor symptoms - Observed eating breakfast in common room, appeared more comfortable VS,Fishbone, I+O VS, Fishbone, I+O Vital Signs Date Time Temp Pulse Resp B/P (MAP) Pulse Ox O2 Delivery O2 Flow Rate FiO2 05/13/19 16:00 99.2 89 20 116/80 (92) 05/13/19 06:31 Room Air TYLER ROACH PA-C May 13, 2019 20:09
[2019-05-13] MEDS: CETIRIZINE (ZyrTEC) 10 MG TAB PO SCH (21:09)
[2019-05-14 06:47] VITALS: BP 138/73
[2019-05-14] MEDS: LORazepam 0.5 MG TAB PO SCH (08:16)
[2019-05-14] MEDS: VERAPAMIL 120 MG SR TAB PO SCH (08:18)
[2019-05-14] MEDS: diphenhydrAMINE 50 MG CAP PO SCH ×2 (08:18→21:00)
[2019-05-14] MEDS: DOCUSATE SODIUM 100 MG CAP PO SCH ×2 (08:18→21:00)
[2019-05-14] MEDS: SERTRALINE HCL 50 MG TAB PO SCH (08:19)
[2019-05-14] MEDS: GABAPENTIN 300 MG CAP PO SCH ×3 (08:19→21:00)
[2019-05-14] MEDS: OLANZapine ORAL DISINTEGRATING TAB 5MG PO SCH ×3 (08:19→21:00)
[2019-05-14] MEDS: NICOTINE 21MG/24HR 1 EA TRANSDERMAL TD SCH (10:05)
[2019-05-14] MEDS: MOM 30ML SUSPENSION UDC PO PRN (17:26)
[2019-05-14] MEDS: hydrOXYzine 25 MG TAB PO PRN (17:26)
[2019-05-14 17:42] VITALS: BP 130/77
[2019-05-14] MEDS: CETIRIZINE (ZyrTEC) 10 MG TAB PO SCH (21:00)
[2019-05-15 06:09] VITALS: BP 114/63
[2019-05-15] MEDS: DOCUSATE SODIUM 100 MG CAP PO SCH ×2 (09:47→20:47)
[2019-05-15] MEDS: GABAPENTIN 300 MG CAP PO SCH ×3 (09:47→20:46)
[2019-05-15] MEDS: OLANZapine ORAL DISINTEGRATING TAB 5MG PO SCH ×3 (09:48→20:47)
[2019-05-15] MEDS: diphenhydrAMINE 50 MG CAP PO SCH ×2 (09:48→20:47)
[2019-05-15] MEDS: VERAPAMIL 120 MG SR TAB PO SCH (09:49)
[2019-05-15] MEDS: MOM 30ML SUSPENSION UDC PO PRN (09:49)
[2019-05-15] MEDS: LORazepam 0.5 MG TAB PO SCH (09:50)
[2019-05-15] MEDS: SERTRALINE HCL 50 MG TAB PO SCH (09:50)
[2019-05-15] MEDS: NICOTINE 21MG/24HR 1 EA TRANSDERMAL TD SCH (09:55)
[2019-05-15] MEDS ORDERED: BISACODYL 5 MG TAB PO ONE (12:00)
[2019-05-15 15:00] VITALS: BP 111/58
[2019-05-15] MEDS: CETIRIZINE (ZyrTEC) 10 MG TAB PO SCH (20:46)
[2019-05-16 06:07] VITALS: BP 120/60
[2019-05-16] MEDS: SERTRALINE HCL 50 MG TAB PO SCH (08:53)
[2019-05-16] MEDS: DOCUSATE SODIUM 100 MG CAP PO SCH ×2 (08:55→20:22)
[2019-05-16] MEDS: diphenhydrAMINE 50 MG CAP PO SCH ×2 (08:55→20:22)
[2019-05-16] MEDS: GABAPENTIN 300 MG CAP PO SCH ×3 (08:55→20:21)
[2019-05-16] MEDS: NICOTINE 21MG/24HR 1 EA TRANSDERMAL TD SCH (09:00)
[2019-05-16] MEDS: LORazepam 0.5 MG TAB PO SCH (09:43)
[2019-05-16] MEDS: VERAPAMIL 120 MG SR TAB PO SCH (09:44)
[2019-05-16] MEDS: OLANZapine ORAL DISINTEGRATING TAB 5MG PO SCH ×3 (09:46→20:21)
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
[2019-05-16 16:00] VITALS: BP 118/55
[2019-05-16] MEDS: CETIRIZINE (ZyrTEC) 10 MG TAB PO SCH (20:21)
[2019-05-16] MEDS: traZODone 50 MG TAB PO PRN (20:22)
[2019-05-17 06:27] VITALS: BP 138/61
[2019-05-17] MEDS: NICOTINE 21MG/24HR 1 EA TRANSDERMAL TD SCH (08:03)
[2019-05-17] MEDS: PILL CUTTER 1 EACH XX PRN (08:09)
[2019-05-17] MEDS: LORazepam 0.5 MG TAB PO SCH (08:09)
[2019-05-17] MEDS: OLANZapine ORAL DISINTEGRATING TAB 5MG PO SCH ×3 (08:10→20:33)
[2019-05-17] MEDS: VERAPAMIL 120 MG SR TAB PO SCH (08:10)
[2019-05-17] MEDS: SERTRALINE HCL 50 MG TAB PO SCH (08:10)
[2019-05-17] MEDS: diphenhydrAMINE 50 MG CAP PO SCH ×2 (08:11→20:33)
[2019-05-17] MEDS: DOCUSATE SODIUM 100 MG CAP PO SCH ×2 (08:11→20:33)
[2019-05-17] MEDS: GABAPENTIN 300 MG CAP PO SCH ×3 (08:11→20:33)
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
[2019-05-17 16:05] VITALS: BP 123/77
[2019-05-17] MEDS: traZODone 50 MG TAB PO PRN (20:33)
[2019-05-17] MEDS: CETIRIZINE (ZyrTEC) 10 MG TAB PO SCH (20:33)
[2019-05-18 06:28] VITALS: BP 144/80
[2019-05-18] MEDS: VERAPAMIL 120 MG SR TAB PO SCH (08:12)
[2019-05-18] MEDS: PILL CUTTER 1 EACH XX PRN (08:12)
[2019-05-18] MEDS: OLANZapine ORAL DISINTEGRATING TAB 5MG PO SCH ×3 (08:13→19:45)
[2019-05-18] MEDS: diphenhydrAMINE 50 MG CAP PO SCH ×2 (08:13→19:45)
[2019-05-18] MEDS: GABAPENTIN 300 MG CAP PO SCH ×3 (08:13→19:45)
[2019-05-18] MEDS: SERTRALINE HCL 50 MG TAB PO SCH (08:13)
[2019-05-18] MEDS: DOCUSATE SODIUM 100 MG CAP PO SCH ×2 (08:13→19:46)
[2019-05-18] MEDS: NICOTINE 21MG/24HR 1 EA TRANSDERMAL TD SCH (08:14)
[2019-05-18] MEDS: LORazepam 0.5 MG TAB PO SCH (08:14)
[2019-05-18] MEDS: ACETAMINOPHEN TAB 650MG DOSE (2X325MG) PO PRN (08:18)
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
[2019-05-18 16:06] VITALS: BP 117/74
[2019-05-18] MEDS: traZODone 50 MG TAB PO PRN (19:45)
[2019-05-18] MEDS: CETIRIZINE (ZyrTEC) 10 MG TAB PO SCH (19:46)
[2019-05-19 06:33] VITALS: BP 119/61
[2019-05-19] MEDS: LORazepam 0.5 MG TAB PO SCH (10:10)
[2019-05-19] MEDS: diphenhydrAMINE 50 MG CAP PO SCH ×2 (10:11→20:30)
[2019-05-19] MEDS: DOCUSATE SODIUM 100 MG CAP PO SCH ×2 (10:12→20:30)
[2019-05-19] MEDS: VERAPAMIL 120 MG SR TAB PO SCH (10:12)
[2019-05-19] MEDS: GABAPENTIN 300 MG CAP PO SCH ×3 (10:12→20:30)
[2019-05-19] MEDS: SERTRALINE HCL 50 MG TAB PO SCH (10:13)
[2019-05-19] MEDS: OLANZapine ORAL DISINTEGRATING TAB 5MG PO SCH ×3 (10:14→20:30)
[2019-05-19] MEDS: NICOTINE 21MG/24HR 1 EA TRANSDERMAL TD SCH (10:18)
[2019-05-19] MEDS: hydrOXYzine 25 MG TAB PO PRN (17:26)
[2019-05-19] MEDS: CETIRIZINE (ZyrTEC) 10 MG TAB PO SCH (20:30)
[2019-05-20 06:25] VITALS: BP 114/68
[2019-05-20] MEDS: LORazepam 0.5 MG TAB PO SCH (09:05)
[2019-05-20] MEDS: PILL CUTTER 1 EACH XX PRN (09:05)
[2019-05-20] MEDS: diphenhydrAMINE 50 MG CAP PO SCH ×2 (09:07→20:34)
[2019-05-20] MEDS: OLANZapine ORAL DISINTEGRATING TAB 5MG PO SCH ×3 (09:07→20:34)
[2019-05-20] MEDS: VERAPAMIL 120 MG SR TAB PO SCH (09:07)
[2019-05-20] MEDS: DOCUSATE SODIUM 100 MG CAP PO SCH ×2 (09:07→20:34)
[2019-05-20] MEDS: GABAPENTIN 300 MG CAP PO SCH ×3 (09:07→20:34)
[2019-05-20] MEDS: SERTRALINE HCL 50 MG TAB PO SCH (09:07)
[2019-05-20] MEDS: NICOTINE 21MG/24HR 1 EA TRANSDERMAL TD SCH (09:08)
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
[2019-05-20] MEDS ORDERED: SERTRALINE HCL 25 MG TABLET PO ONE (10:00)
[2019-05-20 16:27] VITALS: BP 124/76
[2019-05-20] MEDS: hydrOXYzine 50 MG TAB PO PRN (17:20)
[2019-05-20] MEDS: CETIRIZINE (ZyrTEC) 10 MG TAB PO SCH (20:33)
[2019-05-21 06:16] VITALS: BP 109/57
[2019-05-21] MEDS: PILL CUTTER 1 EACH XX PRN (08:27)
[2019-05-21] MEDS: LORazepam 0.5 MG TAB PO SCH (08:27)
[2019-05-21] MEDS: VERAPAMIL 120 MG SR TAB PO SCH (08:28)
[2019-05-21] MEDS: OLANZapine ORAL DISINTEGRATING TAB 5MG PO SCH ×3 (08:29→20:25)
[2019-05-21] MEDS: diphenhydrAMINE 50 MG CAP PO SCH ×2 (08:29→20:25)
[2019-05-21] MEDS: GABAPENTIN 300 MG CAP PO SCH ×3 (08:29→20:26)
[2019-05-21] MEDS: NICOTINE 21MG/24HR 1 EA TRANSDERMAL TD SCH (08:29)
[2019-05-21] MEDS: SERTRALINE 100 MG TAB PO SCH (08:29)
[2019-05-21] MEDS: DOCUSATE SODIUM 100 MG CAP PO SCH ×2 (08:29→20:26)
[2019-05-21 16:00] VITALS: BP 102/59
[2019-05-21] MEDS: hydrOXYzine 50 MG TAB PO PRN (16:38)
[2019-05-21] MEDS: CETIRIZINE (ZyrTEC) 10 MG TAB PO SCH (20:25)
[2019-05-22 06:14] VITALS: BP 116/66
[2019-05-22] MEDS: LORazepam 0.5 MG TAB PO SCH (08:07)
[2019-05-22] MEDS: PILL CUTTER 1 EACH XX PRN (08:07)
[2019-05-22] MEDS: GABAPENTIN 300 MG CAP PO SCH ×3 (08:10→20:24)
[2019-05-22] MEDS: OLANZapine ORAL DISINTEGRATING TAB 5MG PO SCH ×3 (08:10→20:24)
[2019-05-22] MEDS: DOCUSATE SODIUM 100 MG CAP PO SCH ×2 (08:10→20:24)
[2019-05-22] MEDS: VERAPAMIL 120 MG SR TAB PO SCH (08:10)
[2019-05-22] MEDS: diphenhydrAMINE 50 MG CAP PO SCH ×2 (08:10→20:24)
[2019-05-22] MEDS: SERTRALINE 100 MG TAB PO SCH (08:11)
[2019-05-22] MEDS: NICOTINE 21MG/24HR 1 EA TRANSDERMAL TD SCH (08:11)
[2019-05-22 16:05] VITALS: BP 132/75
[2019-05-22] MEDS: CETIRIZINE (ZyrTEC) 10 MG TAB PO SCH (20:24)
[2019-05-23 06:48] VITALS: BP 108/52
[2019-05-23] MEDS: DOCUSATE SODIUM 100 MG CAP PO SCH ×2 (08:51→20:34)
[2019-05-23] MEDS: GABAPENTIN 300 MG CAP PO SCH ×3 (08:52→20:34)
[2019-05-23] MEDS: VERAPAMIL 120 MG SR TAB PO SCH (08:56)
[2019-05-23] MEDS: LORazepam 0.5 MG TAB PO SCH (08:57)
[2019-05-23] MEDS: OLANZapine ORAL DISINTEGRATING TAB 5MG PO SCH ×3 (08:57→20:34)
[2019-05-23] MEDS: diphenhydrAMINE 50 MG CAP PO SCH ×2 (08:57→20:34)
[2019-05-23] MEDS: SERTRALINE 100 MG TAB PO SCH (08:57)
[2019-05-23] MEDS: NICOTINE 21MG/24HR 1 EA TRANSDERMAL TD SCH (09:00)
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
[2019-05-23 17:26] VITALS: BP 140/62
[2019-05-23] MEDS: CETIRIZINE (ZyrTEC) 10 MG TAB PO SCH (20:34)
[2019-05-24 06:15] VITALS: BP 104/52
[2019-05-24] MEDS: OLANZapine ORAL DISINTEGRATING TAB 5MG PO SCH ×3 (08:35→20:40)
[2019-05-24] MEDS: SERTRALINE 100 MG TAB PO SCH (08:35)
[2019-05-24] MEDS: GABAPENTIN 300 MG CAP PO SCH ×3 (08:36→20:40)
[2019-05-24] MEDS: DOCUSATE SODIUM 100 MG CAP PO SCH ×2 (08:36→20:40)
[2019-05-24] MEDS: diphenhydrAMINE 50 MG CAP PO SCH ×2 (08:36→20:40)
[2019-05-24] MEDS: VERAPAMIL 120 MG SR TAB PO SCH (08:37)
[2019-05-24] MEDS: NICOTINE 21MG/24HR 1 EA TRANSDERMAL TD SCH (08:38)
[2019-05-24 15:51] VITALS: BP 121/74
[2019-05-24] MEDS: hydrOXYzine 50 MG TAB PO PRN (16:00)
[2019-05-24] MEDS: CETIRIZINE (ZyrTEC) 10 MG TAB PO SCH (20:40)
[2019-05-24] MEDS: traZODone 50 MG TAB PO PRN (20:40)
[2019-05-25 06:25] VITALS: BP 112/58
[2019-05-25] MEDS: GABAPENTIN 300 MG CAP PO SCH ×3 (08:09→21:24)
[2019-05-25] MEDS: OLANZapine ORAL DISINTEGRATING TAB 5MG PO SCH ×3 (08:09→21:25)
[2019-05-25] MEDS: NICOTINE 21MG/24HR 1 EA TRANSDERMAL TD SCH (08:10)
[2019-05-25] MEDS: DOCUSATE SODIUM 100 MG CAP PO SCH ×2 (08:10→21:25)
[2019-05-25] MEDS: SERTRALINE 100 MG TAB PO SCH (08:10)
[2019-05-25] MEDS: VERAPAMIL 120 MG SR TAB PO SCH (08:10)
[2019-05-25] MEDS: diphenhydrAMINE 50 MG CAP PO SCH ×2 (08:10→21:25)
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
[2019-05-25 16:00] VITALS: BP 123/70
[2019-05-25] MEDS: CETIRIZINE (ZyrTEC) 10 MG TAB PO SCH (21:25)
[2019-05-26 06:16] VITALS: BP 107/53
[2019-05-26] MEDS: VERAPAMIL 120 MG SR TAB PO SCH (08:44)
[2019-05-26] MEDS: DOCUSATE SODIUM 100 MG CAP PO SCH ×2 (08:45→20:27)
[2019-05-26] MEDS: OLANZapine ORAL DISINTEGRATING TAB 5MG PO SCH ×3 (08:45→20:27)
[2019-05-26] MEDS: GABAPENTIN 300 MG CAP PO SCH ×3 (08:47→20:27)
[2019-05-26] MEDS: diphenhydrAMINE 50 MG CAP PO SCH ×2 (08:47→20:27)
[2019-05-26] MEDS: NICOTINE 21MG/24HR 1 EA TRANSDERMAL TD SCH (08:48)
[2019-05-26] MEDS: SERTRALINE 100 MG TAB PO SCH (08:48)
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
[2019-05-26 16:00] VITALS: BP 154/76
[2019-05-26] MEDS: CETIRIZINE (ZyrTEC) 10 MG TAB PO SCH (20:27)
[2019-05-27 06:27] VITALS: BP 108/55
[2019-05-27] MEDS: VERAPAMIL 120 MG SR TAB PO SCH (08:34)
[2019-05-27] MEDS: DOCUSATE SODIUM 100 MG CAP PO SCH ×2 (08:35→21:14)
[2019-05-27] MEDS: SERTRALINE 100 MG TAB PO SCH (08:35)
[2019-05-27] MEDS: diphenhydrAMINE 50 MG CAP PO SCH ×2 (08:35→21:14)
[2019-05-27] MEDS: GABAPENTIN 300 MG CAP PO SCH ×3 (08:35→21:14)
[2019-05-27] MEDS: OLANZapine ORAL DISINTEGRATING TAB 5MG PO SCH ×3 (08:36→21:14)
[2019-05-27] MEDS: NICOTINE 21MG/24HR 1 EA TRANSDERMAL TD SCH (08:36)
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
[2019-05-27 15:57] VITALS: BP 111/79
[2019-05-27] MEDS: CETIRIZINE (ZyrTEC) 10 MG TAB PO SCH (21:14)
[2019-05-28 06:19] VITALS: BP 122/71
[2019-05-28] MEDS: VERAPAMIL 120 MG SR TAB PO SCH (08:57)
[2019-05-28] MEDS: OLANZapine ORAL DISINTEGRATING TAB 5MG PO SCH ×3 (08:58→21:15)
[2019-05-28] MEDS: DOCUSATE SODIUM 100 MG CAP PO SCH ×2 (08:58→21:15)
[2019-05-28] MEDS: GABAPENTIN 300 MG CAP PO SCH ×3 (08:58→21:16)
[2019-05-28] MEDS: SERTRALINE 100 MG TAB PO SCH (08:58)
[2019-05-28] MEDS: diphenhydrAMINE 50 MG CAP PO SCH ×2 (08:58→21:16)
[2019-05-28] MEDS: NICOTINE 21MG/24HR 1 EA TRANSDERMAL TD SCH (09:00)
[2019-05-28 15:37] VITALS: BP 117/76
[2019-05-28] MEDS: CETIRIZINE (ZyrTEC) 10 MG TAB PO SCH (21:16)
[2019-05-29 06:29] VITALS: BP 116/65
[2019-05-29] MEDS: NICOTINE 21MG/24HR 1 EA TRANSDERMAL TD SCH (09:00)
[2019-05-29] MEDS: GABAPENTIN 300 MG CAP PO SCH ×3 (09:19→20:44)
[2019-05-29] MEDS: SERTRALINE 100 MG TAB PO SCH (09:19)
[2019-05-29] MEDS: OLANZapine ORAL DISINTEGRATING TAB 5MG PO SCH ×3 (09:20→20:44)
[2019-05-29] MEDS: DOCUSATE SODIUM 100 MG CAP PO SCH ×2 (09:20→20:44)
[2019-05-29] MEDS: diphenhydrAMINE 50 MG CAP PO SCH ×2 (09:20→20:45)
[2019-05-29] MEDS: VERAPAMIL 120 MG SR TAB PO SCH (09:23)
[2019-05-29 18:10] VITALS: BP 121/70
[2019-05-29] MEDS: CETIRIZINE (ZyrTEC) 10 MG TAB PO SCH (20:44)
[2019-05-30 06:18] VITALS: BP 117/73
[2019-05-30] MEDS: DOCUSATE SODIUM 100 MG CAP PO SCH ×2 (08:20→20:09)
[2019-05-30] MEDS: GABAPENTIN 300 MG CAP PO SCH ×3 (08:20→20:09)
[2019-05-30] MEDS: SERTRALINE 100 MG TAB PO SCH (08:20)
[2019-05-30] MEDS: OLANZapine ORAL DISINTEGRATING TAB 5MG PO SCH ×3 (08:20→20:09)
[2019-05-30] MEDS: diphenhydrAMINE 50 MG CAP PO SCH ×2 (08:25→20:09)
[2019-05-30] MEDS: NICOTINE 21MG/24HR 1 EA TRANSDERMAL TD SCH (09:00)
[2019-05-30] MEDS: VERAPAMIL 120 MG SR TAB PO SCH (09:14)
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
[2019-05-30 18:00] VITALS: BP 108/69
[2019-05-30] MEDS: CETIRIZINE (ZyrTEC) 10 MG TAB PO SCH (20:09)
[2019-05-31 06:49] VITALS: BP 121/66
[2019-05-31] MEDS: NICOTINE 21MG/24HR 1 EA TRANSDERMAL TD SCH (08:23)
[2019-05-31] MEDS: VERAPAMIL 120 MG SR TAB PO SCH (08:26)
[2019-05-31] MEDS: diphenhydrAMINE 50 MG CAP PO SCH ×2 (08:27→20:58)
[2019-05-31] MEDS: GABAPENTIN 300 MG CAP PO SCH ×3 (08:27→20:58)
[2019-05-31] MEDS: SERTRALINE 100 MG TAB PO SCH (08:27)
[2019-05-31] MEDS: OLANZapine ORAL DISINTEGRATING TAB 5MG PO SCH ×3 (08:27→20:58)
[2019-05-31] MEDS: DOCUSATE SODIUM 100 MG CAP PO SCH ×2 (08:27→20:58)
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
[2019-05-31 15:02] VITALS: BP 133/62
[2019-05-31] MEDS: CETIRIZINE (ZyrTEC) 10 MG TAB PO SCH (20:58)
[2019-06-01 05:57] VITALS: BP 123/65
[2019-06-01] MEDS: SERTRALINE 100 MG TAB PO SCH (08:20)
[2019-06-01] MEDS: diphenhydrAMINE 50 MG CAP PO SCH (08:20)
[2019-06-01] MEDS: GABAPENTIN 300 MG CAP PO SCH (08:20)
[2019-06-01] MEDS: OLANZapine ORAL DISINTEGRATING TAB 5MG PO SCH ×2 (08:20→11:51)
[2019-06-01] MEDS: DOCUSATE SODIUM 100 MG CAP PO SCH (08:20)
[2019-06-01 08:21] VITALS: BP 123/65
[2019-06-01] MEDS: VERAPAMIL 120 MG SR TAB PO SCH (08:21)
[2019-06-01] MEDS: NICOTINE 21MG/24HR 1 EA TRANSDERMAL TD SCH (08:21)
[2019-06-01 10:50] VITALS: BP 109/63
--- NOTE | 2019-06-01 12:02 | MHDSPDOC ---
[facility] Discharge Summary Discharge Summary DATE OF ADMISSION: Apr 24, 2019 at 13:50 DATE OF DISCHARGE: 06/02/19 Xiao Serrano Discharge Xiao Serrano Select Gender MRN: N/A Date of : MM/DD/YYYY Date of Service: 06/01/2019 Diagnoses MDD with psychotic features, currently in remission. History of Present Illness 33-year-old woman with a history of severe depression with psychotic features presents mildly catatonic and severely depressed with delusions, persecution. She has a complicated psychiatric history. Consultants Involved Hospitalist/PCP screening Treatment and Progress On The Unit Patient was admitted to the inpatient mental health unit and started on antidepressant. Eventually, she was switched to sertraline titrate up to 100 mg daily as well as augmented with Zyprexa 5 mg twice a day, increased to 10 mg at night in addition to her daily dose. At first, she was unable to engage in a meaningful activity, but became more social and engaged. She attended groups at times and became more able to converse. She made good improvement, initially she was being triaged for long-term care, however, she started to make good improvement with an increased ability to socialize and attend to her basic needs. She had no major behavioral problems on the unit and had been denying suicidality and homicidality and unusual thoughts for close to a week prior to h er discharge. Discharge Assessment 33-year-old woman with severe depression treated with augmented sertraline, does will after close to 8-month of admission. The patient at the time of discharge did not meet criteria for involuntary admission/extension due to having a normal mental status exam, fair insight into the situation, They are engaged in the discharge process, as well as being friendly and amenable in behavioral control and havent been engaging in any observed concerning behavior or ideation recently. They decline voluntary extension/admission at this time and must be discharged in good dinah, as Im unable to make a case for holding the patient against their will. They may have historical risk factors of admissions and other interactions with psychiatry however, those are not modifiable from a clinical perspective. The patient will need to be discharged in good dinah. Mental Status Examination General: Well dressed with good hygiene Speech: Spontaneous and fluid Thought processes: Linear and logical MSK: Smooth and coordinated gait, no signs of tremors or involuntary orofacial movements Thought content: Future orientated Abstract reasoning, and computation: Intact Description of associations: Intact Description of abnormal or psychotic thoughts: Denies any suicidal or homicidal ideation. Denies any auditory or visual hallucinations. Does not appear to be responding to internal stimuli. Does not appear to be endorsing any bizarre or paranoid ideation. Judgment: fair Insight: fair Orientation: Alert and orientated 3 Cognition: Grossly normal Recent and remote memory: Intact Attention span and concentration: Intact Fund of knowledge: Adequate Mood: "okay" Affect: Euthymic with a full range Follow Up The social work team worked during the predischarge meeting in order to evaluate for further issues of lethality address them fully before discharge. They worked on safety planning with the patient's family members in order to ensure that the patient will have a safe and effective discharge. Time Spent The amount of time spent in the coordination of care for this patient was approximately 45 minutes. Vital Signs/I&Os Vital Signs Date Time Temp Pulse Resp B/P (MAP) Pulse Ox O2 Delivery O2 Flow Rate FiO2 06/01/19 10:50 98.2 67 12 109/63 (78) 96 Room Air Medications Scheduled Cetirizine HCl (24Hour Allergy) 10 Mg Tablet, 10 MG PO DAILY, (Reported) Gabapentin (Gabapentin) 300 Mg Capsule, 600 MG PO TID for MURPHY for 7 Days, #42 Nicotine (Nicotine Patch) 21 Mg Patch.td24, 1 PATCH TD DAILY for tobacco for 30 Days, #30 Olanzapine (Olanzapine) 5 Mg Tablet, 1 TAB PO ASDIRECTED for thoughts for 7 Days, #21 take 1 tab QAM and 2 QHS Sertraline HCl (Sertraline HCl) 100 Mg Tablet, 100 MG PO DAILY for mood for 7 Days, #7 Valacyclovir HCl (Valacyclovir) 1,000 Mg Tablet, 1 GM PO DAILY, (Reported) Verapamil HCl (Verapamil Sr) 120 Mg Cap24h.pel, 120 MG PO DAILY, (Reported) Allergies Coded Allergies: Sulfa (Sulfonamide Antibiotics) (Verified Allergy, Unknown, Hives, 04/24/19) KYLIE BUI DO Jun 01, 2019 12:02
[2019-06-01] MEDS ORDERED: OLAN5TAB PO (12:08)
[2019-06-01] MEDS ORDERED: NICO21PAT TD (12:08)
[2019-06-01] MEDS ORDERED: SERT-138 PO (12:08)
[2019-06-01] MEDS ORDERED: GABA-843 PO (12:52)
== END 2019-06-01 13:58 | disposition home or self-care (01) | DRG 751 ==
LOC: M ED 08:25 → EDBD 08:25 → M ED INP 13:50 → M PSY 15:07
PROVIDERS: ADMIT Psychiatry & Neurology Psychiatry; ATTEND Psychiatry & Neurology Psychiatry
DX: F32.3 Major depressive disorder, single episode, severe with psychotic features (principal); Z79.899 Other long term (current) drug therapy; Z88.2 Allergy status to sulfonamides; G47.00 Insomnia, unspecified; R51 Headache; R07.1 Chest pain on breathing; F20.2 Catatonic schizophrenia; J02.9 Acute pharyngitis, unspecified; R10.9 Unspecified abdominal pain

== ENCOUNTER → 2020-06-20 | Outpatient (REF) | payer OTHER ==
[~2020-06-20] MED LIST changes: +ALLE10TA62 PO; +BACL10TA2 PO; +BUSP30TA PO; +GABA-282 PO; +GABA600T4 PO; +INVE234I IM; +MELO15TA28 PO; +METH-1164 PO; +MUCI600T31 PO; +NICO21PAT TD; +OLAN5TAB PO; +OSEL75CA2 PO; +SERT-138 PO; +VALA1TAB5 PO; +VERA120C3 PO; +VYVA50CA4 PO
[2020-06-20 18:18] LABS: ESTRADIOL 24.3 PG/ML; FOLLICLE STIMULATING HORMONE 6.4 mIU/mL; LUTEINIZING HORMONE 6.8 mIU/mL; PROLACTIN 104.7 NG/ML; THYROID STIMULATING HORMONE 0.963 uIU/ML (0.358-3.740)
[2020-06-20 18:36] LABS: HCG, SERUM QUALITATIVE NEGATIVE (NEGATIVE)
[2020-06-22 19:07] LABS: TESTOSTERONE FREE (DIRECT) 1.2 pg/mL (0.0-4.2)
== END ==
LOC: M SFHCPLAZ 14:38
PROVIDERS: ATTEND Family Medicine
DX: N91.2 Amenorrhea, unspecified (principal)

== ENCOUNTER → 2020-09-17 | Outpatient (CLI) | payer OTHER ==
[~2020-09-17] MED LIST changes: +OLAN1TAB16 PO; -OLAN5TAB PO
[2020-09-17 13:35] LABS: BASO # 0.1 10^3/uL (0.0-0.2); BASO % 0.6 % (0.0-1.0); EOS # 0.3 10^3/uL (0.0-0.5); EOS % 3.7 % (0.0-3.0); HEMATOCRIT 44.2 % (36.0-47.0); HEMOGLOBIN 14.4 g/dl (12.0-15.5); LYMPH # 1.7 10^3/uL (1.5-5.0); LYMPH % 19.6 % (24.0-44.0); MEAN CORPUSCULAR HEMOGLOBIN 30.2 pg (27.0-33.0); MEAN CORPUSCULAR HGB CONC 32.6 g/dl (32.0-36.5); MEAN CORPUSCULAR VOLUME 92.7 fl (80.0-96.0); MONO # 0.5 10^3/uL (0.0-0.8); MONO % 5.8 % (2.0-8.0); NEUTROPHILS # 6.1 10^3/uL (1.5-8.5); NEUTROPHILS % 70.1 % (36.0-66.0); PLATELET COUNT, AUTOMATED 299 10^3/uL (150-450); RED BLOOD COUNT 4.77 10^6/uL (4.00-5.40); WHITE BLOOD COUNT 8.6 10^3/uL (4.0-10.0)
[2020-09-17 14:11] LABS: ALBUMIN 3.7 GM/DL (3.2-5.2); ALT/SGPT 25 U/L (12-78); BILIRUBIN,TOTAL 0.2 MG/DL (0.2-1.0); BLOOD UREA NITROGEN 9 MG/DL (7-18); CALCIUM LEVEL 8.8 MG/DL (8.5-10.1); CARBON DIOXIDE LEVEL 27 MEQ/L (21-32); CHLORIDE LEVEL 110 MEQ/L (98-107); CHOLESTEROL LEVEL 196 MG/DL (<200); CHOLESTEROL RISK RATIO 6.125 (<5); CREATININE FOR GFR 0.63 MG/DL (0.55-1.30); GLOMERULAR FILTRATION RATE > 60.0 (>60); GLUCOSE, FASTING 86 MG/DL (70-100); HDL CHOLESTEROL 32 MG/DL (>40); LDL CHOLESTEROL 128 MG/DL (<100); NON-HDL-C 164 MG/DL; POTASSIUM SERUM 3.9 MEQ/L (3.5-5.1); SODIUM LEVEL 142 MEQ/L (136-145); TOTAL PROTEIN 6.9 GM/DL (6.4-8.2); TRIGLYCERIDES LEVEL 179 MG/DL (<150)
== END ==
LOC: M PLALAB 11:33
PROVIDERS: ATTEND Family Medicine
DX: Z13.220 Encounter for screening for lipoid disorders (principal)

== ENCOUNTER → 2021-05-21 | Outpatient (REF) | payer OTHER ==
[2021-05-21 13:44] LABS: APPEARANCE, URINE HAZY (CLEAR); BACTERIA, URINE AUTO NEGATIVE (NEGATIVE); BILIRUBIN, URINE AUTO 2+ (NEGATIVE); BLOOD, URINE BLOOD NEGATIVE (NEGATIVE); COLOR, URINE AMBER (YELLOW); GLUCOSE, URINE (UA) AUTO NEGATIVE (NEGATIVE); KETONE, URINE AUTO TRACE mg/dL (NEGATIVE); LEUKOCYTE ESTERASE, URINE AUTO 1+ (NEGATIVE); MUCUS, URINE SMALL (NEGATIVE); NITRITE, URINE AUTO NEGATIVE (NEGATIVE); PROTEIN, URINE AUTO 1+ mg/dL (NEGATIVE); RBC, URINE AUTO 5 /HPF (0-3); SPECIFIC GRAVITY URINE AUTO 1.033 (1.002-1.035); SQUAMOUS EPITHELIAL CELL UR AU 8 /HPF (0-6); WBC, URINE AUTO 24 /HPF (0-3)
== END ==
LOC: M SFHCPLAZ 12:59
PROVIDERS: ATTEND Family Medicine
DX: R32 Unspecified urinary incontinence (principal)

== ENCOUNTER 2021-06-05 13:24 | Emergency (ER) | payer OTHER ==
[2021-06-05] MEDS ORDERED: LORazepam 2 MG/ML VIAL IV STA ×2 (13:37→18:19)
[2021-06-05] MEDS ORDERED: NS 1,000 ML IV ONE ×2 (13:40→15:00)
[2021-06-05 13:50] LABS: BASO # 0.1 10^3/uL (0.0-0.2); BASO % 0.5 % (0.0-1.0); EOS % 0.4 % (0.0-3.0); HEMATOCRIT 45.9 % (36.0-47.0); HEMOGLOBIN 15.9 g/dl (12.0-15.5); LYMPH # 2.8 10^3/uL (1.5-5.0); LYMPH % 25.1 % (24.0-44.0); MEAN CORPUSCULAR HEMOGLOBIN 31.9 pg (27.0-33.0); MEAN CORPUSCULAR HGB CONC 34.6 g/dl (32.0-36.5); MONO # 0.7 10^3/uL (0.0-0.8); MONO % 5.9 % (2.0-8.0); NEUTROPHILS # 7.5 10^3/uL (1.5-8.5); NEUTROPHILS % 67.6 % (36.0-66.0); PLATELET COUNT, AUTOMATED 396 10^3/uL (150-450); RED BLOOD COUNT 4.99 10^6/uL (4.00-5.40)
[2021-06-05 14:37] LABS: ACETAMINOPHEN LEVEL < 2.0 UG/ML (10.0-30.0); ALBUMIN 4.7 GM/DL (3.2-5.2); ALT/SGPT 59 U/L (12-78); BILIRUBIN,DIRECT 0.2 MG/DL (0.0-0.2); BILIRUBIN,TOTAL 0.7 MG/DL (0.2-1.0); BLOOD UREA NITROGEN 8 MG/DL (7-18); CARBON DIOXIDE LEVEL 19 MEQ/L (21-32); CHLORIDE LEVEL 109 MEQ/L (98-107); CREATININE FOR GFR 0.96 MG/DL (0.55-1.30); ETHYL ALCOHOL (ETHANOL) < 0.003 % (0.000-0.010); GLOMERULAR FILTRATION RATE > 60.0 (>60); GLUCOSE, FASTING 120 MG/DL (70-100); POTASSIUM SERUM 3.6 MEQ/L (3.5-5.1); SALICYLATE LEVEL 5.7 MG/DL (5.0-30.0); SODIUM LEVEL 140 MEQ/L (136-145); TOTAL PROTEIN 8.4 GM/DL (6.4-8.2)
[2021-06-05] MEDS: NS 1,000 ML IV SCH ×2 (17:22→21:07)
[2021-06-05 17:32] LABS: AMPHETAMINES LEVEL URINE POSITIVE (NEGATIVE); BARBITURATES URINE NEGATIVE (NEGATIVE); BENZODIAZEPINES URINE NEGATIVE (NEGATIVE); CANNABINOIDS URINE POSITIVE (NEGATIVE); COCAINE METABOLITE URINE NEGATIVE (NEGATIVE); METHADONE URINE NEGATIVE (NEGATIVE); OPIATES URINE NEGATIVE (NEGATIVE); PHENCYCLIDINE URINE NEGATIVE (NEGATIVE)
[2021-06-05 17:52] LABS: RSV AMPLIFICATION NEGATIVE (NEGATIVE)
[2021-06-05] MEDS ORDERED: OLANZapine ORAL DISINTEGRATING TAB 5MG PO ONE ×2 (18:00→18:05)
[2021-06-06] MEDS: NS 1,000 ML IV SCH (01:20)
[2021-06-06 02:55] VITALS: BP 128/58
== END 2021-06-06 04:49 ==
LOC: M ED 13:24 → EDBD 13:24 → M ED 06-06 04:49
DX: F19.10 Other psychoactive substance abuse, uncomplicated (principal); F29 Unspecified psychosis not due to a substance or known physiological condition; R94.31 Abnormal electrocardiogram [ECG] [EKG]; I10 Essential (primary) hypertension; F31.9 Bipolar disorder, unspecified; F11.10 Opioid abuse, uncomplicated; Z88.2 Allergy status to sulfonamides
CPT/HCPCS: 36415; 70450; 80048; 80076; 80143; 80307; 82077; 82550; 84443; 84702; 85025; 87631; 93005; 93041; 94760; 96361; 96374; 96375; 99285; J2060

== ENCOUNTER → 2021-08-13 | Outpatient (CLI) | payer OTHER | LOC: M WHC 08:14 | PROVIDERS: ATTEND Family Medicine | DX: N60.01 Solitary cyst of right breast (principal); N64.4 Mastodynia | CPT/HCPCS: 76642; 77066; G0279 ==

== ENCOUNTER → 2021-09-12 | Outpatient (CLI) | payer OTHER, MEDICAID ==
[2021-09-12 13:52] LABS: BASO # 0.1 10^3/uL (0.0-0.2); BASO % 0.5 % (0.0-1.0); EOS # 0.3 10^3/uL (0.0-0.5); EOS % 3.1 % (0.0-3.0); HEMATOCRIT 45.9 % (36.0-47.0); HEMOGLOBIN 15.3 g/dl (12.0-15.5); LYMPH # 3.2 10^3/uL (1.5-5.0); MEAN CORPUSCULAR HEMOGLOBIN 31.1 pg (27.0-33.0); MEAN CORPUSCULAR HGB CONC 33.3 g/dl (32.0-36.5); MEAN CORPUSCULAR VOLUME 93.3 fl (80.0-96.0); MONO # 0.6 10^3/uL (0.0-0.8); MONO % 5.6 % (2.0-8.0); NEUTROPHILS # 5.9 10^3/uL (1.5-8.5); NEUTROPHILS % 58.5 % (36.0-66.0); PLATELET COUNT, AUTOMATED 336 10^3/uL (150-450); RED BLOOD COUNT 4.92 10^6/uL (4.00-5.40)
[2021-09-12 14:19] LABS: HEMOGLOBIN A1c 5.6 %
[2021-09-12 20:13] LABS: ALBUMIN 3.9 GM/DL (3.2-5.2); ALT/SGPT 28 U/L (12-78); BILIRUBIN,TOTAL 0.4 MG/DL (0.2-1.0); BLOOD UREA NITROGEN 9 MG/DL (7-18); CALCIUM LEVEL 9.6 MG/DL (8.5-10.1); CARBON DIOXIDE LEVEL 26 MEQ/L (21-32); CHLORIDE LEVEL 106 MEQ/L (98-107); CHOLESTEROL LEVEL 222 MG/DL (<200); CHOLESTEROL RISK RATIO 7.161 (<5); CREATININE FOR GFR 0.84 MG/DL (0.55-1.30); GLOMERULAR FILTRATION RATE > 60.0 (>60); GLUCOSE, FASTING 85 MG/DL (70-100); HDL CHOLESTEROL 31 MG/DL (>40); LDL CHOLESTEROL 145 MG/DL (<100); NON-HDL-C 191 MG/DL; POTASSIUM SERUM 4.2 MEQ/L (3.5-5.1); SODIUM LEVEL 140 MEQ/L (136-145); TOTAL PROTEIN 7.3 GM/DL (6.4-8.2); TRIGLYCERIDES LEVEL 229 MG/DL (<150)
[2021-09-12 20:22] LABS: TOTAL 25(OH) VITAMIN D 35.3 NG/ML (30.0-100.0)
[2021-09-12 21:01] LABS: HEPATITIS C VIRUS ABY INDEX 0.1 INDEX (<0.8)
== END ==
LOC: M PLALAB 09:29
PROVIDERS: ATTEND Physician Assistant
DX: Z20.5 Contact with and (suspected) exposure to viral hepatitis (principal)

== ENCOUNTER 2021-12-12 19:34 | Emergency (ER) | payer MEDICAID, OTHER ==
[~2021-12-12] VITALS: Ht 160 cm; Wt 90.9 kg
[2021-12-12 19:35] VITALS: BP 142/82
[2021-12-12 20:40] LABS: BASO % 0.2 % (0.0-1.0); HEMOGLOBIN 15.2 g/dl (12.0-15.5); LYMPH % 13.1 % (24.0-44.0); MEAN CORPUSCULAR HEMOGLOBIN 30.5 pg (27.0-33.0); MEAN CORPUSCULAR VOLUME 92.2 fl (80.0-96.0); MONO # 0.8 10^3/uL (0.0-0.8); MONO % 5.2 % (2.0-8.0); NEUTROPHILS # 12.1 10^3/uL (1.5-8.5); NEUTROPHILS % 81.1 % (36.0-66.0); PLATELET COUNT, AUTOMATED 389 10^3/uL (150-450); RED BLOOD COUNT 4.99 10^6/uL (4.00-5.40); WHITE BLOOD COUNT 14.9 10^3/uL (4.0-10.0)
[2021-12-12 21:10] LABS: ALBUMIN 4.1 GM/DL (3.2-5.2); ALT/SGPT 35 U/L (12-78); BILIRUBIN,DIRECT < 0.1 MG/DL (0.0-0.2); BILIRUBIN,TOTAL 0.3 MG/DL (0.2-1.0); BLOOD UREA NITROGEN 10 MG/DL (7-18); CALCIUM LEVEL 9.8 MG/DL (8.5-10.1); CARBON DIOXIDE LEVEL 28 MEQ/L (21-32); CHLORIDE LEVEL 103 MEQ/L (98-107); CREATININE FOR GFR 0.99 MG/DL (0.55-1.30); GLOMERULAR FILTRATION RATE > 60.0 (>60); GLUCOSE, FASTING 127 MG/DL (70-100); LIPASE 61 U/L (73-393); POTASSIUM SERUM 3.7 MEQ/L (3.5-5.1); SODIUM LEVEL 141 MEQ/L (136-145); TOTAL PROTEIN 8.1 GM/DL (6.4-8.2)
[2021-12-12 21:18] LABS: HCG, SERUM QUALITATIVE NEGATIVE (NEGATIVE)
[2021-12-13] MEDS ORDERED: HYDR50TA70 (09:28)
[2021-12-13] MEDS ORDERED: DOCU100C16 (09:28)
[2021-12-13] MEDS ORDERED: VENL150C43 (09:28)
[2021-12-13] MEDS ORDERED: CLON0.2T (09:28)
[2021-12-13] MEDS ORDERED: PALI1560 (09:28)
[2021-12-13] MEDS ORDERED: DEBL1TAB (09:28)
[2021-12-13] MEDS ORDERED: KETO10TAB PO (13:20)
[2021-12-13] MEDS ORDERED: ONDA4TAB6 PO (13:20)
[2021-12-13] MEDS ORDERED: CEPH500C PO (13:20)
== END 2021-12-13 01:34 | disposition left against medical advice (07) ==
LOC: M ED 19:34
DX: Z53.21 Procedure and treatment not carried out due to patient leaving prior to being seen by health care provider (principal)

== ENCOUNTER 2021-12-13 09:18 | Emergency (ER) | payer OTHER ==
[~2021-12-13] VITALS: Ht 160 cm; Wt 90.9 kg
[2021-12-13] MEDS ORDERED: DOCU100C16 (09:28)
[2021-12-13] MEDS ORDERED: PALI1560 (09:28)
[2021-12-13] MEDS ORDERED: CLON0.2T (09:28)
[2021-12-13] MEDS ORDERED: DEBL1TAB (09:28)
[2021-12-13] MEDS ORDERED: HYDR50TA70 (09:28)
[2021-12-13] MEDS ORDERED: VENL150C43 (09:28)
[2021-12-13 10:39] LABS: BASO % 0.2 % (0.0-1.0); EOS % 0.1 % (0.0-3.0); HEMATOCRIT 46.3 % (36.0-47.0); HEMOGLOBIN 15.5 g/dl (12.0-15.5); LYMPH # 2.4 10^3/uL (1.5-5.0); LYMPH % 18.4 % (24.0-44.0); MEAN CORPUSCULAR HEMOGLOBIN 30.9 pg (27.0-33.0); MEAN CORPUSCULAR HGB CONC 33.5 g/dl (32.0-36.5); MEAN CORPUSCULAR VOLUME 92.4 fl (80.0-96.0); MONO # 0.8 10^3/uL (0.0-0.8); MONO % 5.9 % (2.0-8.0); NEUTROPHILS % 75.2 % (36.0-66.0); PLATELET COUNT, AUTOMATED 382 10^3/uL (150-450); RED BLOOD COUNT 5.01 10^6/uL (4.00-5.40); WHITE BLOOD COUNT 13.3 10^3/uL (4.0-10.0)
[2021-12-13 11:04] LABS: HCG, SERUM QUALITATIVE NEGATIVE (NEGATIVE)
[2021-12-13 11:12] LABS: ALBUMIN 4.1 GM/DL (3.2-5.2); ALT/SGPT 51 U/L (12-78); BILIRUBIN,DIRECT 0.2 MG/DL (0.0-0.2); BILIRUBIN,TOTAL 0.4 MG/DL (0.2-1.0); BLOOD UREA NITROGEN 11 MG/DL (7-18); CALCIUM LEVEL 9.6 MG/DL (8.5-10.1); CARBON DIOXIDE LEVEL 30 MEQ/L (21-32); CHLORIDE LEVEL 101 MEQ/L (98-107); CREATININE FOR GFR 0.85 MG/DL (0.55-1.30); GLOMERULAR FILTRATION RATE > 60.0 (>60); GLUCOSE, FASTING 113 MG/DL (70-100); LIPASE 110 U/L (73-393); POTASSIUM SERUM 3.8 MEQ/L (3.5-5.1); SODIUM LEVEL 140 MEQ/L (136-145)
[2021-12-13] MEDS ORDERED: NS 1,000 ML IV ONE (11:20)
[2021-12-13] MEDS ORDERED: KETOROLAC 30 MG/ML 1ML VIAL IV ONE (11:20)
[2021-12-13] MEDS ORDERED: ONDANSETRON 4MG 2ML VIAL IV ONE (11:20)
[2021-12-13] MEDS ORDERED: ISOVUE-370 76% 100ML VIAL As Ordered ONE (11:43)
[2021-12-13 11:52] LABS: APPEARANCE, URINE MANUAL CLOUDY (CLEAR); COLOR, URINE MANUAL YELLOW (YELLOW)
[2021-12-13 11:53] LABS: BILIRUBIN, URINE MANUAL NEGATIVE (NEGATIVE); GLUCOSE, URINE (UA) MANUAL NEGATIVE (NEGATIVE); KETONE, URINE MANUAL 1+ mg/dL (NEGATIVE); NITRITE, URINE MANUAL NEGATIVE (NEGATIVE); PROTEIN, URINE MANUAL 1+ mg/dL (NEGATIVE); UROBILINOGEN, URINE MANUAL 1 MG mg/dl (NORMAL)
[2021-12-13 11:54] LABS: BLOOD URINE MANUAL POSITIVE (NEGATIVE); LEUKOCYTE ESTERASE, URINE MAN POSITIVE (NEGATIVE)
[2021-12-13 11:59] LABS: BACTERIA, URINE MOD AMOUNT; MUCUS, URINE LARGE AMOUNT (NEGATIVE); SQUAMOUS EPITHELIAL CELL URINE LARGE AMOUNT /hpf (SMALL AMT); WBC, URINE 40-50 /hpf (0-3)
[2021-12-13 12:02] LABS: HYALINE CAST, URINE NONE SEEN /lpf (0-1)
[2021-12-13 12:27] LABS: RSV AMPLIFICATION NEGATIVE (NEGATIVE)
[2021-12-13] MEDS ORDERED: ONDA4TAB6 PO (13:20)
[2021-12-13] MEDS ORDERED: CEPH500C PO (13:20)
[2021-12-13] MEDS ORDERED: KETO10TAB PO (13:20)
[2021-12-13 13:23] VITALS: BP 154/77
== END 2021-12-13 13:27 | disposition home or self-care (01) ==
LOC: M ED 09:18
DX: N39.0 Urinary tract infection, site not specified (principal); K80.20 Calculus of gallbladder without cholecystitis without obstruction; K44.9 Diaphragmatic hernia without obstruction or gangrene; I10 Essential (primary) hypertension; F31.9 Bipolar disorder, unspecified; F41.9 Anxiety disorder, unspecified; F32.A Depression, unspecified; K21.9 Gastro-esophageal reflux disease without esophagitis; F17.200 Nicotine dependence, unspecified, uncomplicated; Z88.2 Allergy status to sulfonamides; Z79.899 Other long term (current) drug therapy; Z79.811 Long term (current) use of aromatase inhibitors
CPT/HCPCS: 74177; 80048; 80076; 81000; 83690; 84703; 85025; 87631; 96361; 96374; 96375; 99284; J1885; J2405; Q9967

== ENCOUNTER → 2022-02-16 | Outpatient (CLI) | payer MEDICAID, OTHER ==
[~2022-02-16] MED LIST changes: +CEPH500C PO; +CLON0.2T PO; +DEBL1TAB PO; +DOCU100C16 PO; +HYDR50TA70 PO; +KETO10TAB PO; +ONDA4TAB6 PO; +PALI1560 SQ; +VENL150C43 PO
== END ==
LOC: M LABSMTC 11:32
PROVIDERS: ATTEND Anesthesiology
DX: Z01.812 Encounter for preprocedural laboratory examination (principal); Z11.52 Encounter for screening for COVID-19

== ENCOUNTER 2022-02-21 07:42 | Day surgery (SDC) | payer OTHER ==
[~2022-02-21] VITALS: Ht 160 cm; Wt 94.7 kg
[~2022-02-21 07:42] MED LIST changes: +BUPIVACAINE/EPIN 0.25% 30ML VIAL As Ordered ONE
[2022-02-21] MEDS ORDERED: ROCURONIUM BROMIDE 50MG/5ML VIAL As Ordered ONE (09:15)
[2022-02-21] MEDS ORDERED: KETOROLAC 60MG 2ML VIAL As Ordered ONE (09:15)
[2022-02-21] MEDS ORDERED: propofoL 200 MG/20 ML VIAL As Ordered ONE (09:15)
[2022-02-21] MEDS ORDERED: ONDANSETRON 4MG 2ML VIAL As Ordered ONE (09:15)
[2022-02-21] MEDS ORDERED: MIDAZOLAM INJ 2MG/2ML VIAL (J2250 PER 1MG) As Ordered ONE (09:15)
[2022-02-21] MEDS ORDERED: SUGAMMADEX SODIUM 500 MG/5 ML VIAL (BRIDION) As Ordered ONE (09:15)
[2022-02-21] MEDS ORDERED: LIDOCAINE 2% 100MG/5ML SDV (FOR ANES.) As Ordered ONE (09:15)
[2022-02-21] MEDS ORDERED: fentaNYL 250 MCG/5 ML INJECTION As Ordered ONE (09:15)
[2022-02-21] MEDS ORDERED: oxyCODONE 5MG TAB PO PRN (10:10)
[2022-02-21] MEDS ORDERED: fentaNYL 100 MCG/2 ML INJECTION IV PRN (10:10)
[2022-02-21] MEDS ORDERED: HYDROMORPHONE HCL 0.5 MG/ 0.5 ML SYRINGE (J1170 PER 1) IV PRN (10:10)
[2022-02-21] MEDS ORDERED: ONDANSETRON 4MG 2ML VIAL IV PRN (10:10)
[2022-02-21] MEDS ORDERED: LR 1,000 ML IV SCH (10:10)
[2022-02-21] MEDS ORDERED: NORCO, ANEXSIA 5/325MG TABLET (HYDROcodone/ACETAMINOPHEN) PO PRN (10:30)
[2022-02-21 11:52] VITALS: BP 149/72
== END 2022-02-21 12:05 | disposition home or self-care (01) ==
LOC: M SDC 07:42
PROVIDERS: ATTEND Surgery
DX: K80.20 Calculus of gallbladder without cholecystitis without obstruction (principal); I10 Essential (primary) hypertension; R01.1 Cardiac murmur, unspecified; G43.909 Migraine, unspecified, not intractable, without status migrainosus; F17.218 Nicotine dependence, cigarettes, with other nicotine-induced disorders; F41.9 Anxiety disorder, unspecified; F32.A Depression, unspecified; Z88.2 Allergy status to sulfonamides; Z79.899 Other long term (current) drug therapy
CPT/HCPCS: 47562; 81025; 88304; J1100; J1885; J2250; J2405; J3010; S2900

== ENCOUNTER → 2022-04-23 | Outpatient (CLI) | payer OTHER ==
[~2022-04-23] MED LIST changes: -BUPIVACAINE/EPIN 0.25% 30ML VIAL As Ordered ONE
[2022-04-23 17:57] LABS: FOLATE 14.12 NG/ML (>5.4); RHEUMATOID FACTOR QUANT < 3.5 IU/ML (<14); THYROID STIMULATING HORMONE 1.141 uIU/ML (0.55-4.78)
[2022-04-23 17:59] LABS: FREE T4 0.99 NG/DL (0.89-1.76)
[2022-04-23 18:00] LABS: VITAMIN B12 LEVEL 517 PG/ML (211-911)
[2022-04-23 18:26] LABS: HEMOGLOBIN A1c 5.7 % (4.0-6.0)
[2022-04-24 08:34] LABS: DRVV SCREEN 43.6 SEC
[2022-04-24 08:42] LABS: PTT LUPUS TYPE ANTICOAG SCREEN 1.1 (0-1.2)
== END ==
LOC: M PLALAB 14:54
PROVIDERS: ATTEND Psychiatry & Neurology Neurology
DX: G62.9 Polyneuropathy, unspecified (principal)

== ENCOUNTER → 2022-04-23 | Outpatient (REF) | payer OTHER, MEDICAID | LOC: M SFHCPLAZ 13:46 | PROVIDERS: ATTEND Physician Assistant | DX: Z12.4 Encounter for screening for malignant neoplasm of cervix (principal); Z11.3 Encounter for screening for infections with a predominantly sexual mode of transmission ==

== ENCOUNTER 2022-05-04 12:09 | Emergency (ER) | payer OTHER ==
[~2022-05-04] VITALS: Ht 160 cm; Wt 93.4 kg
[2022-05-04] MEDS ORDERED: METR-265 (12:39)
[2022-05-04] MEDS ORDERED: VENL75CA47 (12:39)
[2022-05-04] MEDS ORDERED: GABA800T4 (12:39)
[2022-05-04] MEDS ORDERED: GI COCKTAIL 50ML BTL(HYOSCYAMINE/MAALOX/LIDOCAINE VISCOUS)(1:3:1) PO ONE (13:35)
[2022-05-04] MEDS ORDERED: ONDANSETRON 4MG 2ML VIAL IV ONE (13:35)
[2022-05-04 14:07] LABS: BASO % 0.1 % (0.0-1.0); HEMATOCRIT 51.3 % (36.0-47.0); HEMOGLOBIN 17.7 g/dl (12.0-15.5); LYMPH # 1.6 10^3/uL (1.5-5.0); LYMPH % 7.9 % (24.0-44.0); MEAN CORPUSCULAR HEMOGLOBIN 30.1 pg (27.0-33.0); MEAN CORPUSCULAR HGB CONC 34.5 g/dl (32.0-36.5); MEAN CORPUSCULAR VOLUME 87.1 fl (80.0-96.0); MONO % 8.9 % (2.0-8.0); NEUTROPHILS # 16.5 10^3/uL (1.5-8.5); NEUTROPHILS % 82.6 % (36.0-66.0); PLATELET COUNT, AUTOMATED 381 10^3/uL (150-450); RED BLOOD COUNT 5.89 10^6/uL (4.00-5.40)
[2022-05-04 14:32] LABS: MONO # 1.8 10^3/uL (0.0-0.8)
[2022-05-04 14:48] LABS: CREATININE FOR GFR 1.17 MG/DL (0.55-1.30); POTASSIUM SERUM 3.4 MMOL/L (3.5-5.1)
[2022-05-04] MEDS: GASTROGRAFIN SOLUTION 30ML PO SCH ×2 (15:59→16:15)
[2022-05-04] MEDS ORDERED: ISOVUE-370 76% 100ML VIAL As Ordered ONE (17:09)
[2022-05-04 18:35] VITALS: BP 140/89
== END 2022-05-04 18:39 | disposition home or self-care (01) ==
LOC: M ED 12:09
DX: R10.31 Right lower quadrant pain (principal); R11.2 Nausea with vomiting, unspecified; R00.0 Tachycardia, unspecified; E78.5 Hyperlipidemia, unspecified; K21.9 Gastro-esophageal reflux disease without esophagitis; Z87.442 Personal history of urinary calculi; Z88.2 Allergy status to sulfonamides; Z79.810 Long term (current) use of selective estrogen receptor modulators (SERMs); Z79.84 Long term (current) use of oral hypoglycemic drugs; Z79.899 Other long term (current) drug therapy
CPT/HCPCS: 71046; 74177; 80048; 82150; 83605; 83690; 84702; 85025; 87040; 93005; 96374; 99284; J2405

== ENCOUNTER 2022-05-18 08:36 | Emergency (ER) | payer OTHER, MEDICAID ==
[~2022-05-18] VITALS: Ht 160 cm; Wt 92.3 kg
[~2022-05-18 08:36] MED LIST changes: +GABA800T4; +METR-265; +VENL75CA47
[2022-05-18] MEDS ORDERED: NS 1,000 ML IV ONE (09:25)
[2022-05-18] MEDS ORDERED: ONDANSETRON 4MG 2ML VIAL IV ONE (09:40)
[2022-05-18 09:42] LABS: BASO % 0.2 % (0.0-1.0); EOS % 0.1 % (0.0-3.0); HEMATOCRIT 49.1 % (36.0-47.0); HEMOGLOBIN 16.2 g/dl (12.0-15.5); LYMPH # 1.6 10^3/uL (1.5-5.0); LYMPH % 10.7 % (24.0-44.0); MEAN CORPUSCULAR HEMOGLOBIN 29.8 pg (27.0-33.0); MEAN CORPUSCULAR VOLUME 90.3 fl (80.0-96.0); MONO # 0.6 10^3/uL (0.0-0.8); MONO % 3.9 % (2.0-8.0); NEUTROPHILS # 12.9 10^3/uL (1.5-8.5); NEUTROPHILS % 84.6 % (36.0-66.0); PLATELET COUNT, AUTOMATED 492 10^3/uL (150-450); RED BLOOD COUNT 5.44 10^6/uL (4.00-5.40); WHITE BLOOD COUNT 15.2 10^3/uL (4.0-10.0)
[2022-05-18 10:06] LABS: LIPASE 31 U/L (12-53)
[2022-05-18 10:11] LABS: ALBUMIN 4.2 G/DL (3.2-5.2); ALKALINE PHOSPHATASE 106 U/L (46-116); ALT/SGPT 35 U/L (7.0-40); AST/SGOT 17 U/L (<34); BILIRUBIN,DIRECT 0.1 MG/DL (<0.4); BILIRUBIN,TOTAL 0.4 MG/DL (0.3-1.2); BLOOD UREA NITROGEN 13 MG/DL (9-23); CALCIUM LEVEL 9.7 MG/DL (8.5-10.1); CARBON DIOXIDE LEVEL 30 MMOL/L (20-31); CHLORIDE LEVEL 97 MMOL/L (98-107); CREATININE FOR GFR 0.81 MG/DL (0.55-1.30); GLOMERULAR FILTRATION RATE > 60.0 (>60); GLUCOSE, FASTING 134 MG/DL (60-100); POTASSIUM SERUM 3.8 MMOL/L (3.5-5.1); SODIUM LEVEL 136 MMOL/L (136-145); TOTAL PROTEIN 8.1 G/DL (5.7-8.2)
[2022-05-18 10:19] LABS: HCG, SERUM QUALITATIVE NEGATIVE (NEGATIVE)
[2022-05-18] MEDS ORDERED: BOOSTRIX/ADACEL VACCINE (DIPHTH/PERTUSS/ACELL/TETANUS) 0.5ML SYR IM ONE (10:30)
[2022-05-18] MEDS ORDERED: MORPHINE 4 MG/ML 1ML VIAL IV ONE (10:30)
[2022-05-18] MEDS ORDERED: ISOVUE-370 76% 100ML VIAL As Ordered ONE (10:47)
[2022-05-18 13:19] LABS: RSV AMPLIFICATION NEGATIVE (NEGATIVE)
[2022-05-18 13:36] VITALS: BP 144/90
== END 2022-05-18 13:39 | disposition home or self-care (01) ==
LOC: M ED 08:36
DX: S80.01XA Contusion of right knee, initial encounter (principal); R10.9 Unspecified abdominal pain; E86.0 Dehydration; K21.9 Gastro-esophageal reflux disease without esophagitis; F31.9 Bipolar disorder, unspecified; F41.9 Anxiety disorder, unspecified; F17.200 Nicotine dependence, unspecified, uncomplicated; F12.10 Cannabis abuse, uncomplicated; Z87.442 Personal history of urinary calculi; Z88.2 Allergy status to sulfonamides; Z79.891 Long term (current) use of opiate analgesic; Z79.899 Other long term (current) drug therapy
CPT/HCPCS: 73564; 74177; 80048; 80076; 81001; 83605; 83690; 84703; 85025; 87086; 87631; 90471; 90715; 96361; 96374; 96375; 99284; J2270; J2405; Q9967

== ENCOUNTER → 2022-05-20 | Outpatient (CLI) | payer OTHER, MEDICAID | LOC: M WUC 11:24 | PROVIDERS: ATTEND Physician Assistant | DX: S80.02XA Contusion of left knee, initial encounter (principal); S80.01XA Contusion of right knee, initial encounter; Y93.9 Activity, unspecified; Y92.9 Unspecified place or not applicable ==

== ENCOUNTER 2022-05-23 11:57 | Emergency (ER) | payer OTHER, MEDICAID ==
[~2022-05-23] VITALS: Ht 160 cm; Wt 97.4 kg
[2022-05-23 13:02] LABS: BASO % 0.3 % (0.0-1.0); HEMATOCRIT 45.1 % (36.0-47.0); HEMOGLOBIN 14.8 g/dl (12.0-15.5); LYMPH # 1.5 10^3/uL (1.5-5.0); LYMPH % 13.7 % (24.0-44.0); MEAN CORPUSCULAR HEMOGLOBIN 29.9 pg (27.0-33.0); MEAN CORPUSCULAR HGB CONC 32.8 g/dl (32.0-36.5); MEAN CORPUSCULAR VOLUME 91.1 fl (80.0-96.0); MONO # 0.4 10^3/uL (0.0-0.8); MONO % 3.2 % (2.0-8.0); NEUTROPHILS # 9.2 10^3/uL (1.5-8.5); NEUTROPHILS % 82.5 % (36.0-66.0); PLATELET COUNT, AUTOMATED 355 10^3/uL (150-450); RED BLOOD COUNT 4.95 10^6/uL (4.00-5.40); WHITE BLOOD COUNT 11.2 10^3/uL (4.0-10.0)
[2022-05-23 13:23] LABS: LIPASE 28 U/L (12-53)
[2022-05-23 13:29] LABS: ALBUMIN 3.8 G/DL (3.2-5.2); ALKALINE PHOSPHATASE 99 U/L (46-116); ALT/SGPT 30 U/L (7.0-40); AST/SGOT 16 U/L (<34); BILIRUBIN,DIRECT 0.1 MG/DL (<0.4); BILIRUBIN,TOTAL 0.5 MG/DL (0.3-1.2); BLOOD UREA NITROGEN 9 MG/DL (9-23); CALCIUM LEVEL 9.7 MG/DL (8.5-10.1); CARBON DIOXIDE LEVEL 28 MMOL/L (20-31); CHLORIDE LEVEL 100 MMOL/L (98-107); CREATININE FOR GFR 0.56 MG/DL (0.55-1.30); GLOMERULAR FILTRATION RATE > 60.0 (>60); GLUCOSE, FASTING 119 MG/DL (60-100); SODIUM LEVEL 138 MMOL/L (136-145); TOTAL PROTEIN 7.6 G/DL (5.7-8.2)
[2022-05-23] MEDS ORDERED: TRAM50TA2 (13:32)
[2022-05-23] MEDS ORDERED: TRIA1CR80 (13:32)
[2022-05-23] MEDS ORDERED: PERI12LIQ (13:32)
[2022-05-23] MEDS ORDERED: SERO1TAB (13:32)
[2022-05-23 13:36] LABS: HCG, SERUM QUALITATIVE NEGATIVE (NEGATIVE)
[2022-05-23] MEDS ORDERED: PENI500T PO (14:56)
[2022-05-23] MEDS ORDERED: DICY10CA13 PO (14:56)
[2022-05-23] MEDS ORDERED: LIDO15SO4 PO (14:56)
[2022-05-23] MEDS ORDERED: PROM12.56 PO (14:56)
[2022-05-23 15:03] VITALS: BP 141/78
== END 2022-05-23 15:04 | disposition home or self-care (01) ==
LOC: M ED 11:57
DX: J02.0 Streptococcal pharyngitis (principal); R11.2 Nausea with vomiting, unspecified; I10 Essential (primary) hypertension; K21.9 Gastro-esophageal reflux disease without esophagitis; Z88.2 Allergy status to sulfonamides; Z79.811 Long term (current) use of aromatase inhibitors; Z79.2 Long term (current) use of antibiotics; Z79.899 Other long term (current) drug therapy

== ENCOUNTER → 2022-06-06 | Outpatient (CLI) | payer OTHER, MEDICAID ==
[~2022-06-06] MED LIST changes: +DICY10CA13 PO; +LIDO15SO PO; +PENI500T PO; +PERI12LIQ; +PROM12.56 PO; +SERO1TAB; +TRAM50TA2; +TRIA1CR80
== END ==
LOC: M WUC 11:46
PROVIDERS: ATTEND Nurse Practitioner Family
DX: M25.571 Pain in right ankle and joints of right foot (principal); S93.401A Sprain of unspecified ligament of right ankle, initial encounter; X58.XXXA Exposure to other specified factors, initial encounter; Y92.89 Other specified places as the place of occurrence of the external cause; Y93.89 Activity, other specified; Y99.8 Other external cause status

== ENCOUNTER → 2022-07-04 | Outpatient (REF) | payer OTHER, MEDICAID ==
[~2022-07-04] MED LIST changes: +CIPR250T3 PO; +DOCU250C7 PO; -GABA800T4; +GABA800T4 PO; +OMEP1CAP73 PO; +PHEN-501 PO; -SERO1TAB; +SERO1TAB PO; -TRAM50TA2; +TRAM50TA2 PO; -VENL75CA47; +VENL75CA47 PO
[2022-07-04 18:26] LABS: APPEARANCE, URINE CLOUDY (CLEAR); BACTERIA, URINE AUTO 3+ (NEGATIVE); BILIRUBIN, URINE AUTO 1+ (NEGATIVE); BLOOD, URINE BLOOD 1+ (NEGATIVE); COLOR, URINE AMBER (YELLOW); GLUCOSE, URINE (UA) AUTO NEGATIVE (NEGATIVE); KETONE, URINE AUTO NEGATIVE (NEGATIVE); LEUKOCYTE ESTERASE, URINE AUTO 3+ (NEGATIVE); MUCUS, URINE SMALL (NEGATIVE); NITRITE, URINE AUTO POSITIVE (NEGATIVE); PROTEIN, URINE AUTO 2+ mg/dL (NEGATIVE); RBC, URINE AUTO 23 /HPF (0-3); SPECIFIC GRAVITY URINE AUTO 1.031 (1.002-1.035); SQUAMOUS EPITHELIAL CELL UR AU 44 /HPF (0-6); UROBILINOGEN, URINE AUTO 0.2 mg/dL (0.0-2.0); WBC, URINE AUTO TNTC /HPF (0-3)
== END ==
LOC: M LAB REF 12:51
PROVIDERS: ATTEND Physician Assistant
DX: N39.0 Urinary tract infection, site not specified (principal)

== ENCOUNTER → 2022-07-23 | Day surgery (SDC) | payer OTHER ==
[~2022-07-23] VITALS: Ht 160 cm; Wt 90.5 kg
[~2022-07-23] MED LIST changes: +NS 1,000 ML IV ONE; +fentaNYL 100 MCG/2 ML INJECTION As Ordered ONE; +propofoL 200 MG/20 ML VIAL As Ordered ONE
[2022-07-23 10:50] VITALS: BP 115/65
== END | disposition home or self-care (01) ==
LOC: M OPP 09:30
PROVIDERS: ATTEND Surgery
DX: K29.70 Gastritis, unspecified, without bleeding (principal); F17.200 Nicotine dependence, unspecified, uncomplicated; Z79.1 Long term (current) use of non-steroidal anti-inflammatories (NSAID); Z79.891 Long term (current) use of opiate analgesic; Z79.899 Other long term (current) drug therapy; Z88.2 Allergy status to sulfonamides
CPT/HCPCS: 43239; 88305; J3010

== ENCOUNTER 2022-08-16 09:29 | Emergency (ER) | payer OTHER ==
[~2022-08-16] VITALS: Ht 160 cm; Wt 95.8 kg
[~2022-08-16 09:29] MED LIST changes: -NS 1,000 ML IV ONE; -fentaNYL 100 MCG/2 ML INJECTION As Ordered ONE; -propofoL 200 MG/20 ML VIAL As Ordered ONE
[2022-08-16] MEDS ORDERED: ALBUTEROL SULFATE 2.5MG/0.5ML INH NEB SOLN INH ONE (09:45)
[2022-08-16] MEDS ORDERED: IPRATROPIUM 0.5MG/ALBUTEROL 2.5MG INH SOL UD 3ML (DUONEB) NEB ONE (09:45)
[2022-08-16 10:10] LABS: BASO # 0.1 10^3/uL (0.0-0.2); BASO % 0.5 % (0.0-1.0); EOS # 0.5 10^3/uL (0.0-0.5); EOS % 5.7 % (0.0-3.0); HEMATOCRIT 44.2 % (36.0-47.0); HEMOGLOBIN 14.2 g/dl (12.0-15.5); LYMPH # 3.2 10^3/uL (1.5-5.0); LYMPH % 34.4 % (24.0-44.0); MEAN CORPUSCULAR HEMOGLOBIN 29.8 pg (27.0-33.0); MEAN CORPUSCULAR HGB CONC 32.1 g/dl (32.0-36.5); MEAN CORPUSCULAR VOLUME 92.9 fl (80.0-96.0); MONO # 0.6 10^3/uL (0.0-0.8); MONO % 6.9 % (2.0-8.0); NEUTROPHILS # 4.9 10^3/uL (1.5-8.5); NEUTROPHILS % 52.3 % (36.0-66.0); PLATELET COUNT, AUTOMATED 306 10^3/uL (150-450); RED BLOOD COUNT 4.76 10^6/uL (4.00-5.40); WHITE BLOOD COUNT 9.3 10^3/uL (4.0-10.0)
[2022-08-16 10:26] LABS: ABG BASE EXCESS 0.6 (-2.0-2.0); ABG HCO3 26.3 MMOL/L (22.0-26.0); ABG O2 SATURATION 92.8 % (95.0-99.0); ABG PARTIAL PRESSURE O2 58.5 mmHg (75.0-100.0); ABG STANDARD HCO3 24.9 MMOL/L. (22.0-26.0); ABG TOTAL CO2 27.7 MMOL/L (22.0-29.0); ABG pH (ARTERIAL) 7.375 UNITS (7.350-7.450)
[2022-08-16 10:37] LABS: BARBITURATES URINE NEGATIVE (NEGATIVE); BENZODIAZEPINES URINE NEGATIVE (NEGATIVE)
[2022-08-16 10:38] LABS: METHADONE URINE NEGATIVE (NEGATIVE); OPIATES URINE NEGATIVE (NEGATIVE); PHENCYCLIDINE URINE NEGATIVE (NEGATIVE)
[2022-08-16 10:40] LABS: ETHYL ALCOHOL (ETHANOL) < 0.003 % (0.000-0.010)
[2022-08-16 10:41] LABS: ACETAMINOPHEN LEVEL < 2.0 UG/ML (10.0-20.0); ALBUMIN 3.8 G/DL (3.2-5.2); ALKALINE PHOSPHATASE 98 U/L (46-116); ALT/SGPT 38 U/L (7.0-40); AST/SGOT 24 U/L (<34); BILIRUBIN,DIRECT < 0.1 MG/DL (<0.4); BILIRUBIN,TOTAL 0.2 MG/DL (0.3-1.2); BLOOD UREA NITROGEN 8 MG/DL (9-23); CALCIUM LEVEL 9.3 MG/DL (8.5-10.1); CARBON DIOXIDE LEVEL 29 MMOL/L (20-31); CHLORIDE LEVEL 102 MMOL/L (98-107); CPK CREATINE PHOSPHOKINASE 352 U/L (34-145); CREATININE FOR GFR 0.66 MG/DL (0.55-1.30); GLOMERULAR FILTRATION RATE > 60.0 (>60); GLUCOSE, FASTING 109 MG/DL (60-100); SALICYLATE LEVEL < 3.0 MG/DL (<30); SODIUM LEVEL 137 MMOL/L (136-145); TOTAL PROTEIN 6.9 G/DL (5.7-8.2)
[2022-08-16 10:44] LABS: THYROID STIMULATING HORMONE 3.154 uIU/ML (0.55-4.78)
[2022-08-16 10:45] LABS: HCG, SERUM QUALITATIVE NEGATIVE (NEGATIVE)
[2022-08-16 10:47] LABS: AMPHETAMINES LEVEL URINE POSITIVE (NEGATIVE); CANNABINOIDS URINE POSITIVE (NEGATIVE); COCAINE METABOLITE URINE POSITIVE (NEGATIVE)
[2022-08-16 11:03] LABS: RSV AMPLIFICATION NEGATIVE (NEGATIVE)
[2022-08-16] MEDS ORDERED: VALA500T5 PO (12:27)
[2022-08-16] MEDS ORDERED: VENL37.598 PO (12:27)
[2022-08-16] MEDS ORDERED: BRIN1TAB3 PO (12:27)
[2022-08-16] MEDS ORDERED: QUET200T2 PO (12:27)
[2022-08-16] MEDS ORDERED: HOME MED LIST COMPLETE! XX SCH (12:30)
[2022-08-16 13:43] VITALS: BP 154/69; TEMP 96.6; O2SAT 97
== END 2022-08-16 14:01 | disposition home or self-care (01) ==
LOC: EDBD 09:29 → M ED 09:29
DX: T50.901A Poisoning by unspecified drugs, medicaments and biological substances, accidental (unintentional), initial encounter (principal); F17.200 Nicotine dependence, unspecified, uncomplicated; F10.10 Alcohol abuse, uncomplicated; F15.10 Other stimulant abuse, uncomplicated; Z88.2 Allergy status to sulfonamides; Z79.899 Other long term (current) drug therapy

== ENCOUNTER → 2022-08-22 | Outpatient (REF) | payer OTHER, MEDICAID ==
[~2022-08-22] MED LIST changes: +BRIN1TAB3 PO; +QUET200T2 PO; +VALA500T5 PO; +VENL37.598 PO
== END ==
LOC: M LAB REF 16:23
PROVIDERS: ATTEND Nurse Practitioner Family
DX: R30.0 Dysuria (principal)

== ENCOUNTER 2022-08-29 14:24 | Day surgery (SDC) | payer OTHER ==
[~2022-08-29] VITALS: Ht 160 cm; Wt 90.7 kg
[~2022-08-29 14:24] MED LIST changes: +DICY-61 PO; -DICY10CA13 PO; +LR 1,000 ML IV SCH
[2022-08-29 14:48] LABS: HEMATOCRIT 40.1 % (36.0-47.0); HEMOGLOBIN 13.2 g/dl (12.0-15.5); MEAN CORPUSCULAR HEMOGLOBIN 29.7 pg (27.0-33.0); MEAN CORPUSCULAR HGB CONC 32.9 g/dl (32.0-36.5); MEAN CORPUSCULAR VOLUME 90.3 fl (80.0-96.0); PLATELET COUNT, AUTOMATED 344 10^3/uL (150-450); RED BLOOD COUNT 4.44 10^6/uL (4.00-5.40); WHITE BLOOD COUNT 9.3 10^3/uL (4.0-10.0)
[2022-08-29 15:16] LABS: HCG, SERUM QUALITATIVE NEGATIVE (NEGATIVE)
[2022-08-29] MEDS ORDERED: LR 1,000 ML IV SCH (15:25)
[2022-08-29] MEDS ORDERED: MIDAZOLAM INJ 2MG/2ML VIAL As Ordered ONE (15:34)
[2022-08-29] MEDS ORDERED: fentaNYL 100 MCG/2 ML INJECTION As Ordered ONE (15:34)
[2022-08-29] MEDS ORDERED: propofoL 200 MG/20 ML VIAL As Ordered ONE (15:34)
[2022-08-29] MEDS ORDERED: ROCURONIUM BROMIDE 50MG/5ML VIAL As Ordered ONE (15:34)
[2022-08-29] MEDS ORDERED: LIDOCAINE 2% 100MG/5ML SDV (FOR ANES.) As Ordered ONE (15:34)
[2022-08-29] MEDS ORDERED: PHENYLephrine 500MCG 5ML (100MCG/ML) SYRINGE As Ordered ONE ×2 (16:53→17:12)
[2022-08-29] MEDS ORDERED: ACETAMINOPHEN 1000MG 100ML IV BAG As Ordered ONE (16:55)
[2022-08-29] MEDS ORDERED: ePHEDrine SULFATE 25 MG/5 ML(5MG/ML) SYRINGE As Ordered ONE (16:58)
[2022-08-29] MEDS ORDERED: ONDANSETRON 4MG 2ML VIAL As Ordered ONE (17:11)
[2022-08-29] MEDS ORDERED: KETOROLAC 60MG 2ML VIAL As Ordered ONE ×2 (17:11→17:13)
[2022-08-29] MEDS ORDERED: HYDROmorphone HCL 2MG/ML 1ML VIAL As Ordered ONE (17:12)
[2022-08-29] MEDS ORDERED: oxyCODONE 5MG TAB PO PRN (17:35)
[2022-08-29] MEDS ORDERED: fentaNYL 100 MCG/2 ML INJECTION IV PRN (17:35)
[2022-08-29] MEDS ORDERED: MORPHINE 2 MG/ML 1ML VIAL IV PRN (17:35)
[2022-08-29] MEDS ORDERED: ONDANSETRON 4MG 2ML VIAL IV PRN (17:35)
[2022-08-29] MEDS ORDERED: PERC5TAB12 PO (17:46)
[2022-08-29] MEDS ORDERED: IBUP1TAB7 PO (17:47)
[2022-08-29] MEDS ORDERED: COLA100C5 PO (17:48)
[2022-08-29 19:05] VITALS: BP 123/80; TEMP 97.6; O2SAT 96
== END 2022-08-29 19:10 | disposition home or self-care (01) ==
LOC: M SDC 14:24
PROVIDERS: ATTEND Obstetrics & Gynecology
DX: Z30.2 Encounter for sterilization (principal); E78.5 Hyperlipidemia, unspecified; J30.2 Other seasonal allergic rhinitis; F17.210 Nicotine dependence, cigarettes, uncomplicated; F31.9 Bipolar disorder, unspecified; F41.9 Anxiety disorder, unspecified; F32.A Depression, unspecified; K21.9 Gastro-esophageal reflux disease without esophagitis; G43.909 Migraine, unspecified, not intractable, without status migrainosus; Z79.899 Other long term (current) drug therapy; Z88.2 Allergy status to sulfonamides
CPT/HCPCS: 36415; 58661; 84703; 85027; 86850; 86900; 86901; 88302; J0131; J1100; J1170; J1885; J2250; J2370; J2405; J3010

== ENCOUNTER 2022-09-10 15:13 | Inpatient (IN) | payer MEDICAID, OTHER ==
[~2022-09-10] VITALS: Ht 160 cm; Wt 88.9 kg
[~2022-09-10 15:13] MED LIST changes: +COLA100C5 PO; +IBUP1TAB7 PO; -LR 1,000 ML IV SCH; +PERC5TAB12 PO
[2022-09-10 16:51] LABS: HEMATOCRIT 43.5 % (36.0-47.0); HEMOGLOBIN 14.7 g/dl (12.0-15.5); MEAN CORPUSCULAR HEMOGLOBIN 29.5 pg (27.0-33.0); MEAN CORPUSCULAR HGB CONC 33.8 g/dl (32.0-36.5); MEAN CORPUSCULAR VOLUME 87.2 fl (80.0-96.0); PLATELET COUNT, AUTOMATED 373 10^3/uL (150-450); RED BLOOD COUNT 4.99 10^6/uL (4.00-5.40); WHITE BLOOD COUNT 11.2 10^3/uL (4.0-10.0)
[2022-09-10] MEDS ORDERED: IBUP80TA PO (17:11)
[2022-09-10] MEDS ORDERED: DOCU100C17 PO (17:11)
[2022-09-10] MEDS ORDERED: PERC5TAB12 PO (17:11)
[2022-09-10 18:25] LABS: ETHYL ALCOHOL (ETHANOL) 0.004 % (0.000-0.010)
[2022-09-10 18:26] LABS: SALICYLATE LEVEL < 3.0 MG/DL (<30)
[2022-09-10 18:27] LABS: ACETAMINOPHEN LEVEL < 2.0 UG/ML (10.0-20.0); ALBUMIN 4.5 G/DL (3.2-5.2); ALKALINE PHOSPHATASE 92 U/L (46-116); ALT/SGPT 19 U/L (7.0-40); AST/SGOT 20 U/L (<34); BILIRUBIN,DIRECT 0.2 MG/DL (<0.4); BILIRUBIN,TOTAL 0.7 MG/DL (0.3-1.2); BLOOD UREA NITROGEN 11 MG/DL (9-23); CALCIUM LEVEL 10.9 MG/DL (8.5-10.1); CARBON DIOXIDE LEVEL 22 MMOL/L (20-31); CHLORIDE LEVEL 105 MMOL/L (98-107); CREATININE FOR GFR 0.65 MG/DL (0.55-1.30); GLOMERULAR FILTRATION RATE > 60.0 (>60); GLUCOSE, FASTING 106 MG/DL (60-100); POTASSIUM SERUM 3.6 MMOL/L (3.5-5.1); SODIUM LEVEL 140 MMOL/L (136-145); THYROID STIMULATING HORMONE 1.353 uIU/ML (0.55-4.78); TOTAL PROTEIN 7.9 G/DL (5.7-8.2)
[2022-09-10] MEDS ORDERED: OLANZapine ORAL DISINTEGRATING TAB 5MG PO ONE (20:50)
[2022-09-10] MEDS: QUEtiapine FUMARATE 200 MG TAB PO SCH (21:00)
[2022-09-11] MEDS ORDERED: traZODone 50 MG TAB PO PRN (00:15)
[2022-09-11] MEDS ORDERED: MAALOX 30 ML SUSP *UDC PO PRN (00:15)
[2022-09-11 02:57] VITALS: BP 132/90; TEMP 98.1; O2SAT 98
[2022-09-11 06:52] VITALS: BP 153/92; TEMP 98.9; O2SAT 99
[2022-09-11] MEDS: methocarbamoL 500 MG TAB PO SCH ×2 (08:16→20:28)
[2022-09-11] MEDS: OMEPRAZOLE 20MG CAP PO SCH (08:16)
[2022-09-11] MEDS: GABAPENTIN 400MG CAP PO SCH ×3 (08:16→20:28)
[2022-09-11] MEDS: DOCUSATE SODIUM 100MG CAPSULE PO SCH ×2 (08:16→20:28)
[2022-09-11] MEDS: CETIRIZINE (ZyrTEC) 10 MG TAB PO SCH (08:17)
[2022-09-11] MEDS: traMADol 50 MG TAB PO PRN (08:43)
[2022-09-11] MEDS ORDERED: HOME MED LIST COMPLETE! XX SCH (08:50)
[2022-09-11] MEDS ORDERED: VENLAFAXINE **XR** 37.5 MG CAPSULE PO SCH (09:00)
[2022-09-11] MEDS ORDERED: diphenhydrAMINE 50MG CAP PO STA (10:09)
[2022-09-11] MEDS ORDERED: LORazepam 2 MG TAB PO STA (10:09)
[2022-09-11] MEDS: OLANZapine 5 MG TAB PO SCH ×2 (10:34→20:28)
[2022-09-11 18:28] VITALS: BP 135/86; TEMP 98.4
[2022-09-11] MEDS: QUEtiapine FUMARATE 200 MG TAB PO SCH (20:28)
[2022-09-11] MEDS: ACETAMINOPHEN TAB 650MG DOSE (2X325MG) PO PRN (23:30)
[2022-09-12] MEDS: hydrOXYzine 50 MG TAB PO PRN ×2 (00:06→18:34)
[2022-09-12] MEDS: traMADol 50 MG TAB PO PRN (00:06)
[2022-09-12 06:43] VITALS: BP 140/92; TEMP 96.7; O2SAT 97
[2022-09-12 06:59] LABS: CHOLESTEROL RISK RATIO 5.55 (<5); HDL CHOLESTEROL 31.3 MG/DL (>40); LDL CHOLESTEROL 112.1 MG/DL (<100); NON-HDL-C 142.7 MG/DL
[2022-09-12] MEDS: ESCITALOPRAM OXALATE 5MG TABLET (LEXAPRO) PO SCH (07:56)
[2022-09-12] MEDS: OMEPRAZOLE 20MG CAP PO SCH (07:56)
[2022-09-12] MEDS: methocarbamoL 500 MG TAB PO SCH ×2 (07:56→20:34)
[2022-09-12] MEDS: DOCUSATE SODIUM 100MG CAPSULE PO SCH ×2 (07:57→20:34)
[2022-09-12] MEDS: GABAPENTIN 400MG CAP PO SCH ×3 (07:58→20:34)
[2022-09-12] MEDS: CETIRIZINE (ZyrTEC) 10 MG TAB PO SCH (07:59)
[2022-09-12] MEDS: OLANZapine 5 MG TAB PO SCH ×2 (07:59→20:34)
[2022-09-12] MEDS: ACETAMINOPHEN TAB 650MG DOSE (2X325MG) PO PRN (08:01)
[2022-09-12] MEDS: LIDOCAINE 5% (LIDODERM) PATCH TD SCH (14:52)
[2022-09-12] MEDS: NICOTINE 21MG/24HR 1 EA TRANSDERMAL TD SCH (15:01)
[2022-09-12] MEDS: cloNIDine 0.2 MG TAB PO PRN (17:32)
[2022-09-12 17:47] VITALS: BP 150/78; TEMP 97.6; O2SAT 99
[2022-09-12] MEDS: QUEtiapine FUMARATE 200 MG TAB PO SCH (20:34)
[2022-09-13] MEDS: traMADol 50 MG TAB PO PRN (04:50)
[2022-09-13 06:23] VITALS: BP 120/75; TEMP 96.2; O2SAT 97
[2022-09-13] MEDS: ESCITALOPRAM OXALATE 5MG TABLET (LEXAPRO) PO SCH (09:03)
[2022-09-13] MEDS: GABAPENTIN 400MG CAP PO SCH ×3 (09:03→20:51)
[2022-09-13] MEDS: OMEPRAZOLE 20MG CAP PO SCH (09:03)
[2022-09-13] MEDS: CETIRIZINE (ZyrTEC) 10 MG TAB PO SCH (09:03)
[2022-09-13] MEDS: OLANZapine 5 MG TAB PO SCH ×2 (09:03→20:51)
[2022-09-13] MEDS: DOCUSATE SODIUM 100MG CAPSULE PO SCH ×2 (09:03→20:51)
[2022-09-13] MEDS: methocarbamoL 500 MG TAB PO SCH ×2 (09:03→20:51)
[2022-09-13] MEDS: LIDOCAINE 5% (LIDODERM) PATCH TD SCH (09:04)
[2022-09-13] MEDS: NICOTINE 21MG/24HR 1 EA TRANSDERMAL TD SCH (09:04)
[2022-09-13] MEDS: MOM 30ML SUSPENSION UDC PO PRN (10:03)
[2022-09-13 18:46] VITALS: BP 135/65; TEMP 97.7; O2SAT 100
[2022-09-13] MEDS: QUEtiapine FUMARATE 200 MG TAB PO SCH (21:17)
[2022-09-13] MEDS: ACETAMINOPHEN TAB 650MG DOSE (2X325MG) PO PRN (23:36)
[2022-09-14 06:33] VITALS: BP 123/69; TEMP 97.3; O2SAT 99
[2022-09-14] MEDS: ACETAMINOPHEN TAB 650MG DOSE (2X325MG) PO PRN ×2 (07:03→14:01)
[2022-09-14] MEDS: MOM 30ML SUSPENSION UDC PO PRN (08:52)
[2022-09-14] MEDS: DOCUSATE SODIUM 100MG CAPSULE PO SCH ×2 (08:52→21:07)
[2022-09-14] MEDS: CETIRIZINE (ZyrTEC) 10 MG TAB PO SCH (08:53)
[2022-09-14] MEDS: ESCITALOPRAM OXALATE 5MG TABLET (LEXAPRO) PO SCH (08:53)
[2022-09-14] MEDS: GABAPENTIN 400MG CAP PO SCH ×3 (08:53→21:07)
[2022-09-14] MEDS: OMEPRAZOLE 20MG CAP PO SCH (08:53)
[2022-09-14] MEDS: methocarbamoL 500 MG TAB PO SCH ×2 (08:53→21:07)
[2022-09-14] MEDS: OLANZapine 5 MG TAB PO SCH ×2 (08:54→21:07)
[2022-09-14] MEDS: LIDOCAINE 5% (LIDODERM) PATCH TD SCH (11:42)
[2022-09-14] MEDS: NICOTINE 21MG/24HR 1 EA TRANSDERMAL TD SCH (11:42)
[2022-09-14 18:00] VITALS: BP 129/63; TEMP 98.9; O2SAT 99
[2022-09-14] MEDS: QUEtiapine FUMARATE 200 MG TAB PO SCH (21:57)
[2022-09-14] MEDS: traMADol 50 MG TAB PO PRN (21:57)
[2022-09-15] MEDS: ACETAMINOPHEN TAB 650MG DOSE (2X325MG) PO PRN (01:58)
[2022-09-15 06:07] VITALS: BP 140/76; TEMP 97.2; O2SAT 98
[2022-09-15] MEDS: OLANZapine 5 MG TAB PO SCH ×2 (08:27→20:05)
[2022-09-15] MEDS: traMADol 50 MG TAB PO PRN ×2 (08:27→17:35)
[2022-09-15] MEDS: ESCITALOPRAM OXALATE 5MG TABLET (LEXAPRO) PO SCH (08:28)
[2022-09-15] MEDS: DOCUSATE SODIUM 100MG CAPSULE PO SCH ×2 (08:28→20:05)
[2022-09-15] MEDS: OMEPRAZOLE 20MG CAP PO SCH (08:28)
[2022-09-15] MEDS: methocarbamoL 500 MG TAB PO SCH ×2 (08:28→20:05)
[2022-09-15] MEDS: GABAPENTIN 400MG CAP PO SCH ×3 (08:28→20:06)
[2022-09-15] MEDS: LIDOCAINE 5% (LIDODERM) PATCH TD SCH (08:29)
[2022-09-15] MEDS: NICOTINE 21MG/24HR 1 EA TRANSDERMAL TD SCH (08:29)
[2022-09-15] MEDS: CETIRIZINE (ZyrTEC) 10 MG TAB PO SCH ×2 (09:00→20:05)
[2022-09-15 18:16] VITALS: BP 154/93; TEMP 97.6; O2SAT 100
[2022-09-15] MEDS: QUEtiapine FUMARATE 100 MG TAB PO SCH (21:36)
[2022-09-15] MEDS: diphenhydrAMINE 25MG CAP PO PRN (22:03)
[2022-09-16] MEDS: ACETAMINOPHEN TAB 650MG DOSE (2X325MG) PO PRN ×2 (04:01→21:51)
[2022-09-16] MEDS: diphenhydrAMINE 25MG CAP PO PRN ×2 (06:32→19:46)
[2022-09-16] MEDS: traMADol 50 MG TAB PO PRN ×2 (06:34→15:51)
[2022-09-16 06:43] VITALS: BP 143/83; TEMP 97.3; O2SAT 97
[2022-09-16] MEDS: NICOTINE 21MG/24HR 1 EA TRANSDERMAL TD SCH (08:39)
[2022-09-16] MEDS: GABAPENTIN 400MG CAP PO SCH ×3 (08:39→19:46)
[2022-09-16] MEDS: OLANZapine 5 MG TAB PO SCH ×2 (08:39→19:46)
[2022-09-16] MEDS: DOCUSATE SODIUM 100MG CAPSULE PO SCH ×2 (08:39→19:46)
[2022-09-16] MEDS: methocarbamoL 500 MG TAB PO SCH ×2 (08:39→19:46)
[2022-09-16] MEDS: OMEPRAZOLE 20MG CAP PO SCH (08:39)
[2022-09-16] MEDS: ESCITALOPRAM OXALATE 5MG TABLET (LEXAPRO) PO SCH (08:40)
[2022-09-16] MEDS: LIDOCAINE 5% (LIDODERM) PATCH TD SCH (08:40)
[2022-09-16] MEDS: valACYclovir HCL 500 MG TAB PO SCH (08:40)
[2022-09-16] MEDS: ESCITALOPRAM OXALATE 10 MG TAB (LEXAPRO) PO SCH (09:44)
[2022-09-16] MEDS: hydrOXYzine 50 MG TAB PO PRN (15:49)
[2022-09-16 16:46] VITALS: BP 144/78; TEMP 97.6; O2SAT 100
[2022-09-16 16:52] VITALS: BP 141/88; TEMP 98.6; O2SAT 100
[2022-09-16] MEDS: CETIRIZINE (ZyrTEC) 10 MG TAB PO SCH (19:46)
[2022-09-16] MEDS: QUEtiapine FUMARATE 100 MG TAB PO SCH (21:12)
[2022-09-17] MEDS: traMADol 50 MG TAB PO PRN (00:52)
[2022-09-17 00:53] VITALS: BP 138/78
[2022-09-17] MEDS: cloNIDine 0.2 MG TAB PO PRN ×2 (00:53→08:08)
[2022-09-17] MEDS: ESCITALOPRAM OXALATE 10 MG TAB (LEXAPRO) PO SCH (08:05)
[2022-09-17] MEDS: methocarbamoL 500 MG TAB PO SCH (08:05)
[2022-09-17] MEDS: OMEPRAZOLE 20MG CAP PO SCH (08:05)
[2022-09-17] MEDS: OLANZapine 5 MG TAB PO SCH (08:05)
[2022-09-17] MEDS: DOCUSATE SODIUM 100MG CAPSULE PO SCH (08:05)
[2022-09-17] MEDS: valACYclovir HCL 500 MG TAB PO SCH (08:05)
[2022-09-17] MEDS: GABAPENTIN 400MG CAP PO SCH (08:05)
[2022-09-17] MEDS: NICOTINE 21MG/24HR 1 EA TRANSDERMAL TD SCH (08:06)
[2022-09-17] MEDS: LIDOCAINE 5% (LIDODERM) PATCH TD SCH (08:06)
[2022-09-17] MEDS: hydrOXYzine 50 MG TAB PO PRN (08:08)
[2022-09-17] MEDS ORDERED: OLAN1TAB16 PO (08:34)
[2022-09-17] MEDS ORDERED: QUET300T2 PO (08:34)
[2022-09-17] MEDS ORDERED: GABA800T4 PO (08:34)
[2022-09-17] MEDS ORDERED: NICO21PAT TD (08:34)
[2022-09-17] MEDS ORDERED: LEXA1TAB PO (08:34)
[2022-09-17] MEDS ORDERED: HYDR50TA70 PO (08:34)
[2022-09-17] MEDS ORDERED: LIDO5TD TD (08:34)
[2022-09-17] MEDS ORDERED: CLON0.2T PO (08:34)
[2022-09-17] MEDS ORDERED: ESCITALOPRAM OXALATE 5MG TABLET (LEXAPRO) PO SCH (09:00)
== END 2022-09-17 09:30 | disposition home or self-care (01) | DRG 753 ==
LOC: M ED 15:13 → M ED INP 09-11 00:13 → M PSY 09-11 02:39
PROVIDERS: ADMIT Student in an Organized Health Care Education/Training Program; ATTEND Student in an Organized Health Care Education/Training Program
DX: F31.9 Bipolar disorder, unspecified (principal); R45.851 Suicidal ideations; F10.10 Alcohol abuse, uncomplicated; F17.200 Nicotine dependence, unspecified, uncomplicated; F12.90 Cannabis use, unspecified, uncomplicated; F15.90 Other stimulant use, unspecified, uncomplicated; F60.3 Borderline personality disorder; F16.90 Hallucinogen use, unspecified, uncomplicated; F60.89 Other specific personality disorders; G47.00 Insomnia, unspecified; Z79.899 Other long term (current) drug therapy; Z88.2 Allergy status to sulfonamides

== ENCOUNTER 2022-09-29 12:46 | Emergency (ER) | payer MEDICAID, OTHER ==
[~2022-09-29 12:46] MED LIST changes: +DOCU100C17 PO; +LEXA1TAB PO; +LIDO5TD TD; +QUET300T2 PO
[2022-09-29] MEDS ORDERED: LIDOCAINE 5% (LIDODERM) PATCH TD ONE (13:50)
[2022-09-29] MEDS ORDERED: ACETAMINOPHEN 500 MG TAB PO ONE (13:50)
[2022-09-29 14:31] LABS: HEMATOCRIT 44.6 % (36.0-47.0); HEMOGLOBIN 14.7 g/dl (12.0-15.5); MEAN CORPUSCULAR HEMOGLOBIN 28.9 pg (27.0-33.0); MEAN CORPUSCULAR VOLUME 87.6 fl (80.0-96.0); PLATELET COUNT, AUTOMATED 355 10^3/uL (150-450); RED BLOOD COUNT 5.09 10^6/uL (4.00-5.40); WHITE BLOOD COUNT 10.5 10^3/uL (4.0-10.0)
[2022-09-29 15:03] LABS: ETHYL ALCOHOL (ETHANOL) < 0.003 % (0.000-0.010)
[2022-09-29 15:05] LABS: ACETAMINOPHEN LEVEL < 2.0 UG/ML (10.0-20.0); ALBUMIN 3.7 G/DL (3.2-5.2); ALKALINE PHOSPHATASE 103 U/L (46-116); ALT/SGPT 16 U/L (7.0-40); AST/SGOT 11 U/L (<34); BILIRUBIN,DIRECT 0.1 MG/DL (<0.4); BILIRUBIN,TOTAL 0.3 MG/DL (0.3-1.2); BLOOD UREA NITROGEN 8 MG/DL (9-23); CALCIUM LEVEL 9.4 MG/DL (8.5-10.1); CARBON DIOXIDE LEVEL 21 MMOL/L (20-31); CHLORIDE LEVEL 105 MMOL/L (98-107); CREATININE FOR GFR 0.61 MG/DL (0.55-1.30); GLOMERULAR FILTRATION RATE > 60.0 (>60); GLUCOSE, FASTING 96 MG/DL (60-100); POTASSIUM SERUM 4.1 MMOL/L (3.5-5.1); SALICYLATE LEVEL < 3.0 MG/DL (<30); SODIUM LEVEL 141 MMOL/L (136-145)
[2022-09-29 15:20] LABS: HCG, SERUM QUALITATIVE NEGATIVE (NEGATIVE)
[2022-09-29 16:58] LABS: BARBITURATES URINE NEGATIVE (NEGATIVE); BENZODIAZEPINES URINE NEGATIVE (NEGATIVE); METHADONE URINE NEGATIVE (NEGATIVE); OPIATES URINE NEGATIVE (NEGATIVE); PHENCYCLIDINE URINE NEGATIVE (NEGATIVE)
[2022-09-29 17:02] LABS: AMPHETAMINES LEVEL URINE POSITIVE (NEGATIVE); CANNABINOIDS URINE POSITIVE (NEGATIVE); COCAINE METABOLITE URINE POSITIVE (NEGATIVE)
[2022-09-29] MEDS ORDERED: MED REC IN PROGRESS XX SCH (18:00)
[2022-09-29] MEDS ORDERED: HOME MED LIST COMPLETE! XX SCH (18:05)
[2022-09-29] MEDS ORDERED: diazePAM 5MG TABLET PO ONE (18:30)
[2022-09-29] MEDS ORDERED: IBUPROFEN 400MG TAB PO ONE (18:30)
[2022-09-29 20:48] VITALS: BP 149/80; TEMP 98.5; O2SAT 99
== END 2022-09-29 20:49 | disposition home or self-care (01) ==
LOC: EDBD 12:46 → M ED 12:46
DX: M54.50 Low back pain, unspecified (principal); F41.1 Generalized anxiety disorder; F31.9 Bipolar disorder, unspecified; G43.909 Migraine, unspecified, not intractable, without status migrainosus; F17.200 Nicotine dependence, unspecified, uncomplicated; Z88.2 Allergy status to sulfonamides; Z91.048 Other nonmedicinal substance allergy status; Z79.83 Long term (current) use of bisphosphonates; Z79.899 Other long term (current) drug therapy

== ENCOUNTER → 2022-10-10 | Outpatient (CLI) | payer OTHER ==
[2022-10-10 17:35] LABS: BASO % 0.5 % (0.0-1.0); EOS # 0.4 10^3/uL (0.0-0.5); EOS % 4.1 % (0.0-3.0); HEMATOCRIT 41.3 % (36.0-47.0); HEMOGLOBIN 13.5 g/dl (12.0-15.5); LYMPH # 3.8 10^3/uL (1.5-5.0); LYMPH % 42.9 % (24.0-44.0); MEAN CORPUSCULAR HEMOGLOBIN 29.3 pg (27.0-33.0); MEAN CORPUSCULAR HGB CONC 32.7 g/dl (32.0-36.5); MEAN CORPUSCULAR VOLUME 89.8 fl (80.0-96.0); MONO # 0.5 10^3/uL (0.0-0.8); MONO % 5.3 % (2.0-8.0); NEUTROPHILS # 4.1 10^3/uL (1.5-8.5); NEUTROPHILS % 46.9 % (36.0-66.0); PLATELET COUNT, AUTOMATED 333 10^3/uL (150-450); WHITE BLOOD COUNT 8.8 10^3/uL (4.0-10.0)
[2022-10-10 17:40] LABS: ALBUMIN 3.6 G/DL (3.2-5.2); ALKALINE PHOSPHATASE 109 U/L (46-116); ALT/SGPT 28 U/L (7.0-40); AST/SGOT < 8 U/L (<34); BILIRUBIN,TOTAL 0.2 MG/DL (0.3-1.2); BLOOD UREA NITROGEN 8 MG/DL (9-23); CALCIUM LEVEL 8.9 MG/DL (8.5-10.1); CARBON DIOXIDE LEVEL 26 MMOL/L (20-31); CHLORIDE LEVEL 110 MMOL/L (98-107); CHOLESTEROL LEVEL 170 MG/DL (<200); CHOLESTEROL RISK RATIO 5.34 (<5); CREATININE FOR GFR 0.68 MG/DL (0.55-1.30); FREE T4 0.89 NG/DL (0.89-1.76); GLOMERULAR FILTRATION RATE > 60.0 (>60); GLUCOSE, FASTING 93 MG/DL (60-100); HDL CHOLESTEROL 31.8 MG/DL (>40); LDL CHOLESTEROL 95.2 MG/DL (<100); NON-HDL-C 138.2 MG/DL; POTASSIUM SERUM 3.5 MMOL/L (3.5-5.1); SODIUM LEVEL 144 MMOL/L (136-145); THYROID STIMULATING HORMONE 1.187 uIU/ML (0.55-4.78); TOTAL PROTEIN 6.8 G/DL (5.7-8.2); TRIGLYCERIDES LEVEL 215 MG/DL (<150); VITAMIN B12 LEVEL 556 PG/ML (211-911)
[2022-10-10 17:42] LABS: FOLATE 6.47 NG/ML (>5.4)
[2022-10-10 17:56] LABS: HEMOGLOBIN A1c 5.9 % (4.0-6.0)
== END ==
LOC: M PLALAB 15:05
PROVIDERS: ATTEND Physician Assistant
DX: M79.89 Other specified soft tissue disorders (principal); N64.4 Mastodynia; E78.2 Mixed hyperlipidemia; Z86.39 Personal history of other endocrine, nutritional and metabolic disease

== ENCOUNTER → 2022-12-24 | Outpatient (CLI) | payer OTHER | LOC: M WHC 09:20 | PROVIDERS: ATTEND Physician Assistant | DX: N64.4 Mastodynia (principal); N63.11 Unspecified lump in the right breast, upper outer quadrant ==

== ENCOUNTER → 2023-01-14 | Outpatient (REF) | LOC: M PLAIMG 11:51 | PROVIDERS: ATTEND Internal Medicine | DX: R52 Pain, unspecified (principal) ==

== ENCOUNTER → 2023-04-08 | Outpatient (CLI) | payer OTHER ==
[2023-04-08 14:52] LABS: FREE T4 0.98 NG/DL (0.89-1.76); THYROID STIMULATING HORMONE 2.028 uIU/ML (0.55-4.78)
[2023-04-08 14:56] LABS: ALBUMIN 3.5 G/DL (3.2-5.2); ALKALINE PHOSPHATASE 109 U/L (46-116); ALT/SGPT 45 U/L (7.0-40); AST/SGOT 21 U/L (<34); BILIRUBIN,TOTAL 0.2 MG/DL (0.3-1.2); BLOOD UREA NITROGEN 13 MG/DL (9-23); CARBON DIOXIDE LEVEL 28 MMOL/L (20-31); CHLORIDE LEVEL 108 MMOL/L (98-107); CREATININE FOR GFR 0.77 MG/DL (0.55-1.30); GLOMERULAR FILTRATION RATE > 60.0 (>60); GLUCOSE, FASTING 83 MG/DL (60-100); POTASSIUM SERUM 4.7 MMOL/L (3.5-5.1); SODIUM LEVEL 139 MMOL/L (136-145); TOTAL PROTEIN 6.7 G/DL (5.7-8.2)
[2023-04-08 14:57] LABS: BASO # 0.1 10^3/uL (0.0-0.2); BASO % 0.6 % (0.0-1.0); EOS # 0.4 10^3/uL (0.0-0.5); EOS % 4.1 % (0.0-3.0); HEMATOCRIT 41.8 % (36.0-47.0); HEMOGLOBIN 13.3 g/dl (12.0-15.5); LYMPH # 3.5 10^3/uL (1.5-5.0); LYMPH % 35.9 % (24.0-44.0); MEAN CORPUSCULAR HEMOGLOBIN 29.8 pg (27.0-33.0); MEAN CORPUSCULAR HGB CONC 31.8 g/dl (32.0-36.5); MEAN CORPUSCULAR VOLUME 93.7 fl (80.0-96.0); MONO # 0.7 10^3/uL (0.0-0.8); MONO % 7.4 % (2.0-8.0); NEUTROPHILS # 5.1 10^3/uL (1.5-8.5); NEUTROPHILS % 51.7 % (36.0-66.0); PLATELET COUNT, AUTOMATED 341 10^3/uL (150-450); RED BLOOD COUNT 4.46 10^6/uL (4.00-5.40); TOTAL 25(OH) VITAMIN D 24.8 NG/ML (20.0-100.0); WHITE BLOOD COUNT 9.8 10^3/uL (4.0-10.0)
[2023-04-08 15:05] LABS: HEMOGLOBIN A1c 5.8 % (4.0-6.0)
== END ==
LOC: M PLALAB 10:19
PROVIDERS: ATTEND Physician Assistant
DX: N64.4 Mastodynia (principal); N89.8 Other specified noninflammatory disorders of vagina; R73.03 Prediabetes; Z68.37 Body mass index [BMI] 37.0-37.9, adult

== ENCOUNTER → 2023-06-10 | Outpatient (CLI) | payer OTHER ==
[~2023-06-10] MED LIST changes: -LIDO15SO PO; +LIDO15SO8 PO
[2023-06-10 14:38] LABS: ALBUMIN 3.7 G/DL (3.2-5.2); ALKALINE PHOSPHATASE 112 U/L (46-116); ALT/SGPT 96 U/L (7.0-40); AST/SGOT 44 U/L (<34); BILIRUBIN,TOTAL 0.2 MG/DL (0.3-1.2); BLOOD UREA NITROGEN 15 MG/DL (9-23); CALCIUM LEVEL 9.3 MG/DL (8.5-10.1); CARBON DIOXIDE LEVEL 26 MMOL/L (20-31); CHLORIDE LEVEL 103 MMOL/L (98-107); CREATININE FOR GFR 0.66 MG/DL (0.55-1.30); GLOMERULAR FILTRATION RATE > 60.0 (>60); GLUCOSE, FASTING 83 MG/DL (60-100); MAGNESIUM LEVEL 1.8 MG/DL (1.8-2.4); POTASSIUM SERUM 4.2 MMOL/L (3.5-5.1); SODIUM LEVEL 139 MMOL/L (136-145); TOTAL PROTEIN 7.4 G/DL (5.7-8.2)
== END ==
LOC: M PLALAB 11:25
PROVIDERS: ATTEND Physician Assistant
DX: R60.9 Edema, unspecified (principal)

== ENCOUNTER → 2023-06-25 | Outpatient (CLI) | payer OTHER ==
[2023-06-25 13:53] LABS: ALBUMIN 3.9 G/DL (3.2-5.2); ALKALINE PHOSPHATASE 124 U/L (46-116); ALT/SGPT 38 U/L (7.0-40); AST/SGOT 23 U/L (<34); BILIRUBIN,TOTAL 0.2 MG/DL (0.3-1.2); BLOOD UREA NITROGEN 19 MG/DL (9-23); CALCIUM LEVEL 9.5 MG/DL (8.5-10.1); CARBON DIOXIDE LEVEL 32 MMOL/L (20-31); CHLORIDE LEVEL 98 MMOL/L (98-107); CREATININE FOR GFR 0.82 MG/DL (0.55-1.30); GLOMERULAR FILTRATION RATE > 60.0 (>60); GLUCOSE, FASTING 111 MG/DL (60-100); MAGNESIUM LEVEL 2.1 MG/DL (1.8-2.4); SODIUM LEVEL 139 MMOL/L (136-145); TOTAL PROTEIN 7.6 G/DL (5.7-8.2)
[2023-06-25 14:44] LABS: HEPATITIS B CORE ANTIBODY IGM NEGATIVE (NEGATIVE)
[2023-06-25 14:45] LABS: HEPATITIS C VIRUS ABY INDEX < 0.02 INDEX (<0.8)
== END ==
LOC: M PLALAB 09:04
PROVIDERS: ATTEND Physician Assistant
DX: R60.9 Edema, unspecified (principal); R79.89 Other specified abnormal findings of blood chemistry

== ENCOUNTER → 2023-07-01 | Outpatient (CLI) | payer OTHER | LOC: M WHC 12:15 | PROVIDERS: ATTEND Physician Assistant | DX: N64.4 Mastodynia (principal); N63.22 Unspecified lump in the left breast, upper inner quadrant ==

== ENCOUNTER → 2023-07-09 | Outpatient (REF) | payer OTHER | LOC: M SFHCPLAZ 12:05 | PROVIDERS: ATTEND Physician Assistant | DX: J02.9 Acute pharyngitis, unspecified (principal) ==

== ENCOUNTER → 2023-07-21 | Outpatient (CLI) | payer OTHER ==
[~2023-07-21] MED LIST changes: +HYDR50TA46 PO; +LIDO1PAD TOP; +LINZ145C PO; +NICO21DI37 TD; +OLAN1TAB70 PO; +POTA1TAB23 PO; +PREG100C2 PO
[2023-07-21 10:59] LABS: ALBUMIN 3.9 G/DL (3.2-5.2); BLOOD UREA NITROGEN 9 MG/DL (9-23); CALCIUM LEVEL 9.5 MG/DL (8.5-10.1); CARBON DIOXIDE LEVEL 32 MMOL/L (20-31); CHLORIDE LEVEL 100 MMOL/L (98-107); CREATININE FOR GFR 0.84 MG/DL (0.55-1.30); GLOMERULAR FILTRATION RATE > 60.0 (>60); GLUCOSE, FASTING 168 MG/DL (60-100); MAGNESIUM LEVEL 1.8 MG/DL (1.8-2.4); PHOSPHORUS LEVEL 3.3 MG/DL (2.5-4.9); POTASSIUM SERUM 3.8 MMOL/L (3.5-5.1); SODIUM LEVEL 137 MMOL/L (136-145)
== END ==
LOC: M PLALAB 08:55
PROVIDERS: ATTEND Physician Assistant
DX: R60.9 Edema, unspecified (principal)

== ENCOUNTER 2023-07-28 15:04 | Inpatient (IN) | payer OTHER ==
[~2023-07-28] VITALS: Ht 162.6 cm; Wt 105.6 kg
[~2023-07-28 15:04] MED LIST changes: -HYDR50TA46 PO; -LIDO1PAD TOP; -LINZ145C PO; -NICO21DI37 TD; -OLAN1TAB70 PO; -POTA1TAB23 PO; -PREG100C2 PO
[2023-07-28 16:08] LABS: BASO % 0.2 % (0.0-1.0); HEMATOCRIT 43.3 % (36.0-47.0); HEMOGLOBIN 14.5 g/dl (12.0-15.5); LYMPH # 2.5 10^3/uL (1.5-5.0); LYMPH % 13.4 % (24.0-44.0); MEAN CORPUSCULAR HEMOGLOBIN 28.8 pg (27.0-33.0); MEAN CORPUSCULAR HGB CONC 33.5 g/dl (32.0-36.5); MEAN CORPUSCULAR VOLUME 85.9 fl (80.0-96.0); MONO # 1.3 10^3/uL (0.0-0.8); MONO % 6.7 % (2.0-8.0); NEUTROPHILS # 14.7 10^3/uL (1.5-8.5); NEUTROPHILS % 79.1 % (36.0-66.0); PLATELET COUNT, AUTOMATED 373 10^3/uL (150-450); RED BLOOD COUNT 5.04 10^6/uL (4.00-5.40); WHITE BLOOD COUNT 18.6 10^3/uL (4.0-10.0)
[2023-07-28 16:28] LABS: ETHYL ALCOHOL (ETHANOL) < 0.003 % (0.000-0.010)
[2023-07-28 16:29] LABS: SALICYLATE LEVEL < 3.0 MG/DL (<30)
[2023-07-28 16:30] LABS: ALBUMIN 4.4 G/DL (3.2-5.2); ALKALINE PHOSPHATASE 142 U/L (46-116); ALT/SGPT 45 U/L (7.0-40); AST/SGOT 42 U/L (<34); BILIRUBIN,DIRECT 0.1 MG/DL (<0.4); BILIRUBIN,TOTAL 0.4 MG/DL (0.3-1.2); BLOOD UREA NITROGEN 15 MG/DL (9-23); CARBON DIOXIDE LEVEL 24 MMOL/L (20-31); CHLORIDE LEVEL 102 MMOL/L (98-107); CK-MB VALUE MASS 5.3 NG/ML (<3.6); CREATININE FOR GFR 0.73 MG/DL (0.55-1.30); GLOMERULAR FILTRATION RATE > 60.0 (>60); GLUCOSE, FASTING 110 MG/DL (60-100); POTASSIUM SERUM 3.3 MMOL/L (3.5-5.1); SODIUM LEVEL 139 MMOL/L (136-145); TOTAL PROTEIN 8.4 G/DL (5.7-8.2)
[2023-07-28 16:32] LABS: HCG, SERUM QUALITATIVE NEGATIVE (NEGATIVE); THYROID STIMULATING HORMONE 2.675 uIU/ML (0.55-4.78)
[2023-07-28 16:38] LABS: AMPHETAMINES LEVEL URINE NEGATIVE (NEGATIVE); BARBITURATES URINE NEGATIVE (NEGATIVE); BENZODIAZEPINES URINE NEGATIVE (NEGATIVE); COCAINE METABOLITE URINE NEGATIVE (NEGATIVE); METHADONE URINE NEGATIVE (NEGATIVE); OPIATES URINE NEGATIVE (NEGATIVE); PHENCYCLIDINE URINE NEGATIVE (NEGATIVE)
[2023-07-28 16:44] LABS: CANNABINOIDS URINE POSITIVE (NEGATIVE)
[2023-07-28] MEDS: NS 1,000 ML IV SCH ×2 (16:55→19:42)
[2023-07-28 17:12] LABS: CPK CREATINE PHOSPHOKINASE 1650 U/L (34-145); MB/CK RELATIVE INDEX 0.32 (< OR =4)
[2023-07-28] MEDS: cefTRIAXone SOD 1 GM in D5W MINI-BAG PLUS 50 ML IV ONE (17:34)
[2023-07-28] MEDS: POTASSIUM CHLORIDE 10MEQ SR TABLET PO ONE (17:34)
[2023-07-28] MEDS ORDERED: ISOVUE-370 76% 100ML VIAL As Ordered ONE (18:07)
[2023-07-28 20:24] LABS: PROCALCITONIN <0.04 ng/ml
[2023-07-28] MEDS ORDERED: PREG100C2 PO (20:31)
[2023-07-28] MEDS ORDERED: POTA1TAB23 PO (20:31)
[2023-07-28] MEDS ORDERED: LINZ145C PO (20:31)
[2023-07-28] MEDS ORDERED: OLAN1TAB70 PO (20:31)
[2023-07-28 20:32] LABS: HEPATITIS B SURFACE ANTIGEN NEGATIVE (NEGATIVE)
[2023-07-28] MEDS ORDERED: LEXA1TAB PO (20:47)
[2023-07-28] MEDS ORDERED: LIDO1PAD TOP (20:47)
[2023-07-28] MEDS ORDERED: HYDR50TA46 PO (20:47)
[2023-07-28] MEDS ORDERED: NICO21DI37 TD (20:47)
[2023-07-28] MEDS ORDERED: HOME MED LIST COMPLETE! XX SCH (20:50)
[2023-07-28 20:53] LABS: HEPATITIS B CORE ANTIBODY IGM NEGATIVE (NEGATIVE); HEPATITIS C VIRUS ABY INDEX < 0.02 INDEX (<0.8)
[2023-07-28] MEDS: ONDANSETRON 4MG 2ML VIAL IV PRN (22:28)
[2023-07-29] MEDS: LACTULOSE 20GM/30ML SYRUP UDC PO PRN (05:54)
[2023-07-29] MEDS: cefTRIAXone SOD 2 GM in D5W MINI-BAG PLUS 50 ML IV SCH (05:54)
[2023-07-29 06:12] LABS: BASO % 0.3 % (0.0-1.0); HEMATOCRIT 44.6 % (36.0-47.0); HEMOGLOBIN 14.5 g/dl (12.0-15.5); LYMPH # 2.4 10^3/uL (1.5-5.0); LYMPH % 15.2 % (24.0-44.0); MEAN CORPUSCULAR HEMOGLOBIN 28.8 pg (27.0-33.0); MEAN CORPUSCULAR HGB CONC 32.5 g/dl (32.0-36.5); MEAN CORPUSCULAR VOLUME 88.5 fl (80.0-96.0); MONO % 6.2 % (2.0-8.0); NEUTROPHILS # 12.2 10^3/uL (1.5-8.5); NEUTROPHILS % 77.7 % (36.0-66.0); PLATELET COUNT, AUTOMATED 276 10^3/uL (150-450); RED BLOOD COUNT 5.04 10^6/uL (4.00-5.40); WHITE BLOOD COUNT 15.7 10^3/uL (4.0-10.0)
[2023-07-29 06:12] LABS: BLOOD UREA NITROGEN 10 MG/DL (9-23); CALCIUM LEVEL 8.8 MG/DL (8.5-10.1); CARBON DIOXIDE LEVEL 21 MMOL/L (20-31); CHLORIDE LEVEL 108 MMOL/L (98-107); GLOMERULAR FILTRATION RATE > 60.0 (>60); GLUCOSE, FASTING 129 MG/DL (60-100); MAGNESIUM LEVEL 2.2 MG/DL (1.8-2.4); POTASSIUM SERUM 3.7 MMOL/L (3.5-5.1); SODIUM LEVEL 141 MMOL/L (136-145)
[2023-07-29] MEDS: ENOXAPARIN 40MG/0.4ML SYRINGE (J1650 PER 10MG) SC SCH (09:00)
[2023-07-29] MEDS: valACYclovir HCL 500 MG TAB PO SCH (09:00)
[2023-07-29 10:52] LABS: CPK CREATINE PHOSPHOKINASE 2115 U/L (34-145)
[2023-07-29] MEDS ORDERED: NICOTINE 21MG/24HR 1 EA TRANSDERMAL TD PRN (10:55)
[2023-07-29] MEDS: cloNIDine 0.2 MG TAB PO SCH (11:17)
[2023-07-29] MEDS: ESCITALOPRAM OXALATE 10 MG TAB (LEXAPRO) PO SCH (11:17)
[2023-07-29] MEDS: GABAPENTIN 400MG CAP PO SCH (11:17)
[2023-07-29] MEDS: OMEPRAZOLE 20MG CAP PO SCH (11:17)
[2023-07-29] MEDS: hydrOXYzine 50 MG TAB PO SCH (11:17)
[2023-07-29] MEDS: DOCUSATE SODIUM 100MG CAPSULE PO SCH (11:18)
[2023-07-29] MEDS ORDERED: PROHANCE 279.3MG/ML 15ML VIAL As Ordered ONE (11:46)
[2023-07-29] MEDS ORDERED: PROHANCE 279.3MG/ML 5ML VIAL As Ordered ONE (11:46)
[2023-07-29 15:09] VITALS: BP 137/80; TEMP 98.1; O2SAT 96
[2023-07-29 22:03] VITALS: BP 137/80; TEMP 98.6; O2SAT 96
[2023-07-29] MEDS: QUEtiapine FUMARATE 200 MG TAB PO SCH (22:57)
[2023-07-30 06:00] VITALS: BP 128/56; TEMP 97.6; O2SAT 96
[2023-07-30 06:16] LABS: BASO # 0.1 10^3/uL (0.0-0.2); BASO % 0.7 % (0.0-1.0); EOS # 0.1 10^3/uL (0.0-0.5); EOS % 0.7 % (0.0-3.0); HEMATOCRIT 39.8 % (36.0-47.0); HEMOGLOBIN 13.2 g/dl (12.0-15.5); LYMPH # 2.8 10^3/uL (1.5-5.0); LYMPH % 28.3 % (24.0-44.0); MEAN CORPUSCULAR HEMOGLOBIN 28.9 pg (27.0-33.0); MEAN CORPUSCULAR HGB CONC 33.2 g/dl (32.0-36.5); MEAN CORPUSCULAR VOLUME 87.1 fl (80.0-96.0); MONO # 0.7 10^3/uL (0.0-0.8); NEUTROPHILS # 6.3 10^3/uL (1.5-8.5); NEUTROPHILS % 62.8 % (36.0-66.0); PLATELET COUNT, AUTOMATED 285 10^3/uL (150-450); RED BLOOD COUNT 4.57 10^6/uL (4.00-5.40)
[2023-07-30 06:25] LABS: BLOOD UREA NITROGEN 12 MG/DL (9-23); CALCIUM LEVEL 8.5 MG/DL (8.5-10.1); CARBON DIOXIDE LEVEL 26 MMOL/L (20-31); CHLORIDE LEVEL 112 MMOL/L (98-107); CREATININE FOR GFR 0.75 MG/DL (0.55-1.30); GLOMERULAR FILTRATION RATE > 60.0 (>60); GLUCOSE, FASTING 102 MG/DL (60-100); MAGNESIUM LEVEL 2.3 MG/DL (1.8-2.4); POTASSIUM SERUM 3.7 MMOL/L (3.5-5.1); SODIUM LEVEL 143 MMOL/L (136-145)
[2023-07-30 08:29] VITALS: BP 135/65
[2023-07-30 08:39] LABS: ALKALINE PHOSPHATASE 109 U/L (46-116); ALT/SGPT 82 U/L (7.0-40); AST/SGOT 55 U/L (<34); BILIRUBIN,DIRECT 0.1 MG/DL (<0.4); BILIRUBIN,TOTAL 0.3 MG/DL (0.3-1.2)
[2023-07-30] MEDS ORDERED: CEFD1CAP9 PO (08:47)
[2023-07-30] MEDS ORDERED: GABA-284 PO (08:47)
[2023-07-30] MEDS ORDERED: QUET100T2 PO (08:47)
[2023-07-30 08:52] LABS: CPK CREATINE PHOSPHOKINASE 631 U/L (34-145)
[2023-07-30] MEDS ORDERED: OLAN1TAB70 PO (08:55)
[2023-07-30] MEDS ORDERED: QUEtiapine FUMARATE 100 MG TAB PO SCH (21:00)
== END 2023-07-30 11:56 | disposition home or self-care (01) | DRG 52 ==
LOC: M ED 15:04 → M ED INP 15:05 → OBSVTOIN 07-29 15:01 → M MSPAV 07-29 15:10
PROVIDERS: ADMIT Internal Medicine; ATTEND Internal Medicine
DX: G92.8 Other toxic encephalopathy (principal); E72.20 Disorder of urea cycle metabolism, unspecified; F25.9 Schizoaffective disorder, unspecified; Z68.41 Body mass index [BMI] 40.0-44.9, adult; F50.81 Binge eating disorder; E66.9 Obesity, unspecified; E87.6 Hypokalemia; F12.90 Cannabis use, unspecified, uncomplicated; F31.9 Bipolar disorder, unspecified; F32.A Depression, unspecified; F41.9 Anxiety disorder, unspecified; G89.29 Other chronic pain; R74.01 Elevation of levels of liver transaminase levels; Z91.148 Patient's other noncompliance with medication regimen for other reason; Z88.2 Allergy status to sulfonamides; Z79.899 Other long term (current) drug therapy; F17.200 Nicotine dependence, unspecified, uncomplicated

== ENCOUNTER → 2023-09-02 | Outpatient (CLI) | payer OTHER ==
[~2023-09-02] MED LIST changes: +CEFD1CAP9 PO; +GABA-284 PO; +HYDR50TA46 PO; +LIDO1PAD TOP; +LINZ145C PO; +NICO21DI37 TD; +OLAN1TAB70 PO; +ONDA-282 PO; -ONDA4TAB6 PO; +POTA1TAB23 PO; +PREG100C2 PO; +QUET100T2 PO
[2023-09-02 18:14] LABS: HEMOGLOBIN A1c 6.4 % (4.0-6.0)
[2023-09-02 19:24] LABS: ALBUMIN 3.9 G/DL (3.2-5.2); ALKALINE PHOSPHATASE 165 U/L (46-116); ALT/SGPT 37 U/L (7.0-40); AST/SGOT 16 U/L (<34); BILIRUBIN,TOTAL 0.3 MG/DL (0.3-1.2); BLOOD UREA NITROGEN 14 MG/DL (9-23); CALCIUM LEVEL 9.3 MG/DL (8.5-10.1); CARBON DIOXIDE LEVEL 33 MMOL/L (20-31); CHLORIDE LEVEL 98 MMOL/L (98-107); CREATININE FOR GFR 0.74 MG/DL (0.55-1.30); GLOMERULAR FILTRATION RATE > 60.0 (>60); GLUCOSE, FASTING 101 MG/DL (60-100); MAGNESIUM LEVEL 1.8 MG/DL (1.8-2.4); POTASSIUM SERUM 2.9 MMOL/L (3.5-5.1); SODIUM LEVEL 138 MMOL/L (136-145); TOTAL PROTEIN 7.4 G/DL (5.7-8.2)
== END ==
LOC: M PLALAB 14:26
PROVIDERS: ATTEND Physician Assistant
DX: R73.03 Prediabetes (principal); R35.0 Frequency of micturition; R60.9 Edema, unspecified; E66.01 Morbid (severe) obesity due to excess calories; Z68.41 Body mass index [BMI] 40.0-44.9, adult

== ENCOUNTER → 2023-09-07 | Outpatient (CLI) | payer OTHER ==
[2023-09-07 13:22] LABS: BLOOD UREA NITROGEN 7 MG/DL (9-23); CALCIUM LEVEL 9.3 MG/DL (8.5-10.1); CARBON DIOXIDE LEVEL 28 MMOL/L (20-31); CHLORIDE LEVEL 109 MMOL/L (98-107); CREATININE FOR GFR 0.68 MG/DL (0.55-1.30); GLOMERULAR FILTRATION RATE > 60.0 (>60); GLUCOSE, FASTING 127 MG/DL (60-100); POTASSIUM SERUM 3.8 MMOL/L (3.5-5.1); SODIUM LEVEL 142 MMOL/L (136-145)
== END ==
LOC: M PLALAB 09:44
PROVIDERS: ATTEND Physician Assistant
DX: E87.6 Hypokalemia (principal)

== ENCOUNTER 2023-10-16 05:58 | Emergency (ER) | payer MEDICAID, OTHER ==
[~2023-10-16] VITALS: Ht 160 cm; Wt 100.1 kg
[2023-10-16] MEDS: NS 1,000 ML IV ONE ×2 (09:16→11:00)
[2023-10-16] MEDS: ONDANSETRON 4MG 2ML VIAL IV ONE (09:16)
[2023-10-16 09:25] LABS: BASO % 0.1 % (0.0-1.0); HEMOGLOBIN 16.3 g/dl (12.0-15.5); LYMPH # 1.6 10^3/uL (1.5-5.0); LYMPH % 11.5 % (24.0-44.0); MEAN CORPUSCULAR HEMOGLOBIN 28.8 pg (27.0-33.0); MONO # 0.8 10^3/uL (0.0-0.8); MONO % 5.5 % (2.0-8.0); NEUTROPHILS # 11.4 10^3/uL (1.5-8.5); NEUTROPHILS % 80.3 % (36.0-66.0); PLATELET COUNT, AUTOMATED 374 10^3/uL (150-450); RED BLOOD COUNT 5.65 10^6/uL (4.00-5.40); WHITE BLOOD COUNT 14.1 10^3/uL (4.0-10.0)
[2023-10-16 09:37] LABS: LIPASE 32 U/L (12-53)
[2023-10-16 09:39] LABS: ALKALINE PHOSPHATASE 155 U/L (46-116); ALT/SGPT 53 U/L (7.0-40); AST/SGOT 24 U/L (<34); BILIRUBIN,DIRECT 0.2 MG/DL (<0.4); BILIRUBIN,TOTAL 0.6 MG/DL (0.3-1.2); BLOOD UREA NITROGEN 13 MG/DL (9-23); CALCIUM LEVEL 10.3 MG/DL (8.5-10.1); CARBON DIOXIDE LEVEL 32 MMOL/L (20-31); CHLORIDE LEVEL 95 MMOL/L (98-107); GLOMERULAR FILTRATION RATE > 60.0 (>60); GLUCOSE, FASTING 146 MG/DL (60-100); POTASSIUM SERUM 3.4 MMOL/L (3.5-5.1); SODIUM LEVEL 136 MMOL/L (136-145); TOTAL PROTEIN 9.3 G/DL (5.7-8.2)
[2023-10-16 09:41] LABS: HCG, SERUM QUALITATIVE NEGATIVE (NEGATIVE)
[2023-10-16] MEDS ORDERED: ISOVUE-370 76% 100ML VIAL As Ordered ONE (10:06)
[2023-10-16] MEDS ORDERED: ONDA-282 PO (10:29)
[2023-10-16] MEDS: KETOROLAC 30 MG/ML 1ML VIAL IV ONE (11:00)
[2023-10-16 12:03] VITALS: BP 160/90; TEMP 99.5; O2SAT 96
== END 2023-10-16 12:04 | disposition home or self-care (01) ==
LOC: M ED 05:58
DX: R11.2 Nausea with vomiting, unspecified (principal); F25.9 Schizoaffective disorder, unspecified; F31.9 Bipolar disorder, unspecified; F17.200 Nicotine dependence, unspecified, uncomplicated; Z88.2 Allergy status to sulfonamides; Z91.048 Other nonmedicinal substance allergy status; Z79.83 Long term (current) use of bisphosphonates; Z79.2 Long term (current) use of antibiotics; Z79.899 Other long term (current) drug therapy
CPT/HCPCS: 74177; 80048; 80076; 83690; 84703; 85025; 93005; 96361; 96374; 96375; 99284; J1885; J2405; Q9967

== ENCOUNTER → 2023-10-20 | Outpatient (REF) | payer OTHER | LOC: M SFHCPLAZ 16:56 | PROVIDERS: ATTEND Physician Assistant | DX: J02.9 Acute pharyngitis, unspecified (principal) ==

== ENCOUNTER → 2023-11-23 | Outpatient (REF) | payer OTHER ==
[~2023-11-23] MED LIST changes: +GABA-1490 PO; +GABA-1635 PO; -GABA600T4 PO; -GABA800T4 PO
== END ==
LOC: M SFHCPLAZ 17:19
PROVIDERS: ATTEND Physician Assistant Medical
DX: R21 Rash and other nonspecific skin eruption (principal)

== ENCOUNTER 2023-12-05 13:13 | Observation (INO) | payer OTHER ==
[~2023-12-05] VITALS: Ht 160 cm; Wt 101.7 kg
[~2023-12-05 13:13] MED LIST changes: +GABA-1172 PO; -GABA-282 PO; +PALI1560 IM; -PALI1560 SQ
[2023-12-05 13:43] LABS: BASO % 0.3 % (0.0-1.0); HEMATOCRIT 49.6 % (36.0-47.0); HEMOGLOBIN 16.5 g/dl (12.0-15.5); LYMPH # 1.6 10^3/uL (1.5-5.0); LYMPH % 13.1 % (24.0-44.0); MEAN CORPUSCULAR HGB CONC 33.3 g/dl (32.0-36.5); MEAN CORPUSCULAR VOLUME 87.2 fl (80.0-96.0); MONO # 0.4 10^3/uL (0.0-0.8); MONO % 3.2 % (2.0-8.0); NEUTROPHILS # 9.8 10^3/uL (1.5-8.5); NEUTROPHILS % 82.9 % (36.0-66.0); PLATELET COUNT, AUTOMATED 316 10^3/uL (150-450); RED BLOOD COUNT 5.69 10^6/uL (4.00-5.40); WHITE BLOOD COUNT 11.8 10^3/uL (4.0-10.0)
[2023-12-05 14:10] LABS: HCG, SERUM QUALITATIVE NEGATIVE (NEGATIVE)
[2023-12-05 14:11] LABS: LIPASE 34 U/L (12-53)
[2023-12-05 14:13] LABS: ALBUMIN 4.2 G/DL (3.2-5.2); ALKALINE PHOSPHATASE 138 U/L (46-116); ALT/SGPT 39 U/L (7.0-40); AST/SGOT 17 U/L (<34); BILIRUBIN,DIRECT 0.1 MG/DL (<0.4); BILIRUBIN,TOTAL 0.4 MG/DL (0.3-1.2); TOTAL PROTEIN 8.1 G/DL (5.7-8.2)
[2023-12-05] MEDS: NS 1,000 ML IV ONE (16:03)
[2023-12-05] MEDS: ACETAMINOPHEN *IV* 1,000 MG in IV 1 EA IV ONE (16:04)
[2023-12-05] MEDS: ONDANSETRON 4MG 2ML VIAL IV PRN (16:04)
[2023-12-05] MEDS ORDERED: ISOVUE-370 76% 100ML VIAL As Ordered ONE (16:26)
[2023-12-05] MEDS: PROMETHAZINE 25MG/ML 1ML VIAL IV ONE (17:18)
[2023-12-05] MEDS: HALOPERIDOL LACTATE 5MG/ML VIAL IV ONE (19:27)
[2023-12-05 19:28] LABS: BLOOD UREA NITROGEN 11 MG/DL (9-23); CALCIUM LEVEL 9.1 MG/DL (8.5-10.1); CARBON DIOXIDE LEVEL 26 MMOL/L (20-31); CHLORIDE LEVEL 107 MMOL/L (98-107); CREATININE FOR GFR 0.61 MG/DL (0.55-1.30); GLOMERULAR FILTRATION RATE > 60.0 (>60); GLUCOSE, FASTING 153 MG/DL (60-100); POTASSIUM SERUM 4.1 MMOL/L (3.5-5.1); SODIUM LEVEL 139 MMOL/L (136-145)
[2023-12-05] MEDS ORDERED: MOM 30ML SUSPENSION UDC PO PRN (21:50)
[2023-12-05] MEDS ORDERED: ACETAMINOPHEN 325 MG TAB PO PRN (21:50)
[2023-12-05] MEDS: D5W/LR 1,000 ML IV SCH (22:44)
[2023-12-05] MEDS: SCOPOLAMINE 1MG TRANSDERMAL PATCH TOP SCH (22:44)
[2023-12-05] MEDS ORDERED: TRIA1CR80 TOP (23:00)
[2023-12-05] MEDS ORDERED: QUET100T2 PO (23:00)
[2023-12-05] MEDS ORDERED: LINZ72CA PO (23:00)
[2023-12-05] MEDS ORDERED: GABA-284 PO (23:00)
[2023-12-05] MEDS ORDERED: SPIR1TAB34 PO (23:00)
[2023-12-05] MEDS ORDERED: HOME MED LIST COMPLETE! XX SCH (23:05)
[2023-12-06] MEDS: ONDANSETRON 4MG 2ML VIAL IV SCH ×2 (00:50→05:00)
[2023-12-06] MEDS ORDERED: D5W 1,000 ML IV SCH (04:20)
[2023-12-06] MEDS: PROCHLORPERAZINE 5MG TAB PO ONE (05:34)
[2023-12-06 06:04] LABS: HEMATOCRIT 44.8 % (36.0-47.0); HEMOGLOBIN 14.9 g/dl (12.0-15.5); MEAN CORPUSCULAR HGB CONC 33.3 g/dl (32.0-36.5); MEAN CORPUSCULAR VOLUME 87.3 fl (80.0-96.0); PLATELET COUNT, AUTOMATED 319 10^3/uL (150-450); RED BLOOD COUNT 5.13 10^6/uL (4.00-5.40); WHITE BLOOD COUNT 15.5 10^3/uL (4.0-10.0)
[2023-12-06 06:36] LABS: BLOOD UREA NITROGEN 10 MG/DL (9-23); CALCIUM LEVEL 9.7 MG/DL (8.5-10.1); CARBON DIOXIDE LEVEL 28 MMOL/L (20-31); CHLORIDE LEVEL 104 MMOL/L (98-107); GLOMERULAR FILTRATION RATE > 60.0 (>60); GLUCOSE, FASTING 155 MG/DL (60-100); MAGNESIUM LEVEL 2.3 MG/DL (1.8-2.4); POTASSIUM SERUM 3.5 MMOL/L (3.5-5.1); SODIUM LEVEL 140 MMOL/L (136-145)
[2023-12-06] MEDS: OMEPRAZOLE 20MG CAP PO SCH (09:00)
[2023-12-06] MEDS ORDERED: PREGABALIN 100 MG CAP (LYRICA) PO SCH (09:00)
[2023-12-06 09:11] LABS: PROCALCITONIN <0.04 ng/ml
[2023-12-06] MEDS: GABAPENTIN 400MG CAP PO SCH (09:34)
[2023-12-06] MEDS: DOCUSATE SODIUM 100MG CAPSULE PO SCH (09:34)
[2023-12-06] MEDS: ESCITALOPRAM OXALATE 10 MG TAB (LEXAPRO) PO SCH (09:36)
[2023-12-06] MEDS: SPIRONOLACTONE 25 MG TAB PO SCH (09:36)
[2023-12-06] MEDS: cloNIDine 0.2 MG TAB PO SCH (09:37)
[2023-12-06] MEDS: valACYclovir HCL 500 MG TAB PO SCH (09:37)
[2023-12-06] MEDS: LIDOCAINE 5% (LIDODERM) PATCH TOP SCH (09:38)
[2023-12-06] MEDS: TRIAMCINOLONE ACET 0.1% CREAM 80GM TOP SCH (09:50)
[2023-12-06] MEDS: methocarbamoL 500 MG TAB PO PRN (10:34)
[2023-12-06 10:43] VITALS: BP 160/85; TEMP 97.7; O2SAT 97
[2023-12-06] MEDS ORDERED: ONDA-282 PO (13:18)
[2023-12-06] MEDS ORDERED: ONDANSETRON 4MG 2ML VIAL IV PRN (13:54)
[2023-12-06] MEDS: KETOROLAC 30 MG/ML 1ML VIAL IV ONE (14:33)
[2023-12-06] MEDS: NICOTINE 21MG/24HR 1 EA TRANSDERMAL TD PRN (14:34)
[2023-12-06] MEDS: SUCRALFATE SUSP 1GM/10ML UD PO ONE (16:39)
[2023-12-06 16:40] VITALS: BP 133/68
[2023-12-06] MEDS: DICYCLOMINE 10 MG CAP PO ONE (18:08)
[2023-12-06] MEDS ORDERED: QUEtiapine FUMARATE 100 MG TAB PO SCH (21:00)
[2023-12-06] MEDS ORDERED: CETIRIZINE (ZyrTEC) 10 MG TAB PO SCH (21:00)
== END 2023-12-06 19:09 | disposition home or self-care (01) ==
LOC: M ED 13:13 → M ED INP 21:46 → INTOOBSV 21:46 → ENRESERV 12-06 09:50 → M MS5PR 12-06 10:25
PROVIDERS: ADMIT Student in an Organized Health Care Education/Training Program; ATTEND Internal Medicine
DX: R11.2 Nausea with vomiting, unspecified (principal); R94.31 Abnormal electrocardiogram [ECG] [EKG]; F19.10 Other psychoactive substance abuse, uncomplicated; F32.A Depression, unspecified; F31.9 Bipolar disorder, unspecified; D72.829 Elevated white blood cell count, unspecified; F41.9 Anxiety disorder, unspecified; M54.50 Low back pain, unspecified; G62.9 Polyneuropathy, unspecified; F17.218 Nicotine dependence, cigarettes, with other nicotine-induced disorders; B00.9 Herpesviral infection, unspecified; K52.9 Noninfective gastroenteritis and colitis, unspecified; G43.909 Migraine, unspecified, not intractable, without status migrainosus; Z79.899 Other long term (current) drug therapy; Z88.2 Allergy status to sulfonamides; J30.2 Other seasonal allergic rhinitis
CPT/HCPCS: 36415; 74177; 80047; 80048; 80076; 81001; 83690; 83735; 84145; 84703; 85025; 85027; 87086; 93005; 96361; 96374; 96375; 96376; 99285; J0131; J1630; J1885; J2405; J2550; Q9967

== ENCOUNTER 2023-12-26 03:19 | Emergency (ER) | payer MEDICAID, OTHER ==
[~2023-12-26] VITALS: Ht 160 cm; Wt 104.5 kg
[~2023-12-26 03:19] MED LIST changes: +LINZ72CA PO; +SPIR1TAB34 PO; +TRIA1CR80 TOP
[2023-12-26 03:30] VITALS: BP 143/89; TEMP 98.4; O2SAT 99
[2023-12-26] MEDS ORDERED: OLAN1TAB70 (09:43)
[2023-12-26] MEDS ORDERED: CETI-24 (09:43)
[2023-12-26] MEDS ORDERED: PROC25SU27 PR (14:30)
[2023-12-26] MEDS ORDERED: REGL10TA6 PO (14:30)
== END 2023-12-26 05:37 | disposition left against medical advice (07) ==
LOC: M ED 03:19
DX: Z53.21 Procedure and treatment not carried out due to patient leaving prior to being seen by health care provider (principal)

== ENCOUNTER 2023-12-26 08:31 | Emergency (ER) | payer OTHER ==
[~2023-12-26] VITALS: Ht 160 cm; Wt 103.9 kg
[2023-12-26] MEDS: ONDANSETRON 4MG ORAL DISINTEGRATING TAB PO ONE (09:36)
[2023-12-26] MEDS ORDERED: OLAN1TAB70 (09:43)
[2023-12-26] MEDS ORDERED: CETI-24 (09:43)
[2023-12-26 09:48] LABS: BASO % 0.2 % (0.0-1.0); HEMATOCRIT 46.9 % (36.0-47.0); HEMOGLOBIN 15.5 g/dl (12.0-15.5); LYMPH # 1.4 10^3/uL (1.5-5.0); LYMPH % 11.6 % (24.0-44.0); MEAN CORPUSCULAR VOLUME 87.8 fl (80.0-96.0); MONO # 0.2 10^3/uL (0.0-0.8); MONO % 1.7 % (2.0-8.0); NEUTROPHILS # 10.5 10^3/uL (1.5-8.5); PLATELET COUNT, AUTOMATED 419 10^3/uL (150-450); RED BLOOD COUNT 5.34 10^6/uL (4.00-5.40); WHITE BLOOD COUNT 12.2 10^3/uL (4.0-10.0)
[2023-12-26 10:12] LABS: LIPASE 28 U/L (12-53)
[2023-12-26 10:14] LABS: ALKALINE PHOSPHATASE 143 U/L (35-104); ALT/SGPT 38 U/L (7.0-40); AST/SGOT 14 U/L (<34); BILIRUBIN,TOTAL 0.3 MG/DL (0.3-1.2); BLOOD UREA NITROGEN 12 MG/DL (9-23); CALCIUM LEVEL 10.5 MG/DL (8.5-10.1); CARBON DIOXIDE LEVEL 26 MMOL/L (20-31); CHLORIDE LEVEL 105 MMOL/L (98-107); CREATININE FOR GFR 0.58 MG/DL (0.55-1.30); GLOMERULAR FILTRATION RATE > 60.0 (>60); GLUCOSE, FASTING 210 MG/DL (60-100); POTASSIUM SERUM 4.1 MMOL/L (3.5-5.1); SODIUM LEVEL 141 MMOL/L (136-145)
[2023-12-26] MEDS: KETOROLAC 30 MG/ML 1ML VIAL IV ONE (10:22)
[2023-12-26] MEDS: HALOPERIDOL LACTATE 5MG/ML VIAL IV ONE (11:36)
[2023-12-26 12:13] LABS: AMPHETAMINES LEVEL URINE NEGATIVE (NEGATIVE); BARBITURATES URINE NEGATIVE (NEGATIVE); BENZODIAZEPINES URINE NEGATIVE (NEGATIVE); COCAINE METABOLITE URINE NEGATIVE (NEGATIVE); METHADONE URINE NEGATIVE (NEGATIVE)
[2023-12-26 12:14] LABS: Trichomonas vaginalis (AMP) NOT DETECTED (NEGATIVE)
[2023-12-26 12:14] LABS: OPIATES URINE NEGATIVE (NEGATIVE); PHENCYCLIDINE URINE NEGATIVE (NEGATIVE)
[2023-12-26 12:30] LABS: CANNABINOIDS URINE POSITIVE (NEGATIVE)
[2023-12-26 12:38] LABS: GC DNA AMPLIFICATION NEGATIVE (NEGATIVE)
[2023-12-26] MEDS ORDERED: ISOVUE-370 76% 100ML VIAL As Ordered ONE (12:59)
[2023-12-26] MEDS: PROCHLORPERAZINE 25MG SUPP PR ONE (13:47)
[2023-12-26] MEDS ORDERED: REGL10TA6 PO (14:30)
[2023-12-26] MEDS ORDERED: PROC25SU27 PR (14:30)
[2023-12-26 14:36] VITALS: BP 159/71; TEMP 99.3; O2SAT 98
== END 2023-12-26 14:53 | disposition home or self-care (01) ==
LOC: M ED 08:31
DX: R10.9 Unspecified abdominal pain (principal); R11.2 Nausea with vomiting, unspecified; G43.909 Migraine, unspecified, not intractable, without status migrainosus; I10 Essential (primary) hypertension; F25.9 Schizoaffective disorder, unspecified; M54.50 Low back pain, unspecified; F31.9 Bipolar disorder, unspecified; F17.200 Nicotine dependence, unspecified, uncomplicated; F12.10 Cannabis abuse, uncomplicated; F43.10 Post-traumatic stress disorder, unspecified; Z98.84 Bariatric surgery status; Z90.49 Acquired absence of other specified parts of digestive tract; Z88.2 Allergy status to sulfonamides; Z91.048 Other nonmedicinal substance allergy status; Z79.899 Other long term (current) drug therapy; Z79.83 Long term (current) use of bisphosphonates
CPT/HCPCS: 74177; 80053; 80307; 81000; 81015; 83690; 85025; 86140; 87086; 87661; 87810; 87850; 96374; 96375; 99283; J1630; J1885; Q9967

== ENCOUNTER 2024-02-26 09:27 | Emergency (ER) | payer MEDICAID, OTHER ==
[~2024-02-26] VITALS: Ht 160 cm; Wt 103.2 kg
[~2024-02-26 09:27] MED LIST changes: +CETI-24; +OLAN1TAB70; +PROC25SU27 PR; +REGL10TA6 PO
[2024-02-26] MEDS ORDERED: HYDR50TA70 (09:52)
[2024-02-26 12:31] LABS: BASO % 0.3 % (0.0-1.0); EOS % 0.1 % (0.0-3.0); HEMATOCRIT 49.4 % (36.0-47.0); LYMPH # 3.3 10^3/uL (1.5-5.0); LYMPH % 24.5 % (24.0-44.0); MEAN CORPUSCULAR HEMOGLOBIN 28.8 pg (27.0-33.0); MEAN CORPUSCULAR HGB CONC 34.4 g/dl (32.0-36.5); MEAN CORPUSCULAR VOLUME 83.7 fl (80.0-96.0); MONO # 0.9 10^3/uL (0.0-0.8); MONO % 7.1 % (2.0-8.0); NEUTROPHILS # 8.9 10^3/uL (1.5-8.5); NEUTROPHILS % 67.3 % (36.0-66.0); PLATELET COUNT, AUTOMATED 377 10^3/uL (150-450); WHITE BLOOD COUNT 13.3 10^3/uL (4.0-10.0)
[2024-02-26 12:59] LABS: LIPASE 31 U/L (12-53)
[2024-02-26 13:07] LABS: ALKALINE PHOSPHATASE 122 U/L (35-104); ALT/SGPT 37 U/L (7.0-40); AST/SGOT 23 U/L (<34); BILIRUBIN,DIRECT 0.2 MG/DL (<0.4); BILIRUBIN,TOTAL 0.6 MG/DL (0.3-1.2); BLOOD UREA NITROGEN 12 MG/DL (9-23); CALCIUM LEVEL 9.7 MG/DL (8.5-10.1); CARBON DIOXIDE LEVEL 36 MMOL/L (20-31); CHLORIDE LEVEL 88 MMOL/L (98-107); CREATININE FOR GFR 0.71 MG/DL (0.55-1.30); GLOMERULAR FILTRATION RATE > 60.0 (>60); GLUCOSE, FASTING 137 MG/DL (60-100); POTASSIUM SERUM 2.9 MMOL/L (3.5-5.1); SODIUM LEVEL 133 MMOL/L (136-145); TOTAL PROTEIN 8.2 G/DL (5.7-8.2)
[2024-02-26] MEDS: POTASSIUM CHLORIDE 10MEQ SR TABLET PO ONE (13:27)
[2024-02-26] MEDS: NS (Normal Saline) 0.9% 1,000 ML IV ONE (13:40)
[2024-02-26] MEDS ORDERED: ISOVUE-370 76% 100ML VIAL As Ordered ONE (14:01)
[2024-02-26 17:00] VITALS: BP 130/65; TEMP 98.6; O2SAT 98
== END 2024-02-26 17:25 | disposition home or self-care (01) ==
LOC: M ED 09:27
DX: R10.9 Unspecified abdominal pain (principal); E87.6 Hypokalemia; K76.0 Fatty (change of) liver, not elsewhere classified; Z88.2 Allergy status to sulfonamides; Z90.49 Acquired absence of other specified parts of digestive tract; F17.200 Nicotine dependence, unspecified, uncomplicated
CPT/HCPCS: 74177; 80048; 80076; 81001; 83690; 85025; 87086; 93005; 93041; 94760; 96360; 96361; 99285; Q9967

== ENCOUNTER 2024-03-14 18:17 | Emergency (ER) | payer OTHER ==
[~2024-03-14] VITALS: Ht 7.6 cm; Wt 106.0 kg
[~2024-03-14 18:17] MED LIST changes: +HYDR50TA70
[2024-03-14 18:19] VITALS: TEMP 98.5
[2024-03-14 19:06] LABS: BASO % 0.2 % (0.0-1.0); EOS % 0.2 % (0.0-3.0); HEMATOCRIT 43.6 % (36.0-47.0); HEMOGLOBIN 14.9 g/dl (12.0-15.5); LYMPH # 1.5 10^3/uL (1.5-5.0); LYMPH % 11.2 % (24.0-44.0); MEAN CORPUSCULAR HGB CONC 34.2 g/dl (32.0-36.5); MEAN CORPUSCULAR VOLUME 84.8 fl (80.0-96.0); MONO # 0.3 10^3/uL (0.0-0.8); MONO % 2.4 % (2.0-8.0); NEUTROPHILS # 11.1 10^3/uL (1.5-8.5); NEUTROPHILS % 85.5 % (36.0-66.0); PLATELET COUNT, AUTOMATED 390 10^3/uL (150-450); RED BLOOD COUNT 5.14 10^6/uL (4.00-5.40)
[2024-03-14 19:23] LABS: LIPASE 26 U/L (12-53)
[2024-03-14 19:26] LABS: ALBUMIN 4.1 G/DL (3.2-5.2); ALKALINE PHOSPHATASE 116 U/L (35-104); ALT/SGPT 41 U/L (7.0-40); AST/SGOT 32 U/L (<34); BILIRUBIN,DIRECT < 0.1 MG/DL (<0.4); BILIRUBIN,TOTAL 0.4 MG/DL (0.3-1.2); BLOOD UREA NITROGEN 10 MG/DL (9-23); CALCIUM LEVEL 9.6 MG/DL (8.5-10.1); CARBON DIOXIDE LEVEL 26 MMOL/L (20-31); CHLORIDE LEVEL 100 MMOL/L (98-107); CREATININE FOR GFR 0.53 MG/DL (0.55-1.30); GLOMERULAR FILTRATION RATE > 60.0 (>60); GLUCOSE, FASTING 184 MG/DL (60-100); SODIUM LEVEL 141 MMOL/L (136-145); TOTAL PROTEIN 8.1 G/DL (5.7-8.2)
[2024-03-14 19:32] LABS: KETONE, URINE AUTO RFX 1+ mg/dL (NEGATIVE); MUCUS, URINE RFX SMALL (NEGATIVE); NITRITE, URINE AUTO RFX NEGATIVE (NEGATIVE); RBC, URINE AUTO RFX 3 /HPF (0-3); SQUAM EPITHELIAL CELL UR AURFX 19 /HPF (0-6); WBC, URINE AUTO RFX 10 /HPF (0-3)
[2024-03-14 19:33] LABS: LEUKOCYTE ESTERASE UR AUTO RFX 1+ (NEGATIVE)
[2024-03-14] MEDS: METOCLOPRAMIDE INJ 10MG/2ML VIAL IV ONE (20:02)
[2024-03-14] MEDS ORDERED: ISOVUE-370 76% 100ML VIAL As Ordered ONE (20:02)
[2024-03-14] MEDS: ONDANSETRON 4MG 2ML VIAL IV ONE (21:25)
[2024-03-14 21:30] VITALS: BP 143/75; O2SAT 94
[2024-03-14] MEDS ORDERED: MACR100C43 PO (21:47)
[2024-03-14] MEDS ORDERED: ONDA-282 PO (21:47)
== END 2024-03-14 22:01 | disposition home or self-care (01) ==
LOC: M ED 18:17
DX: K52.9 Noninfective gastroenteritis and colitis, unspecified (principal); N39.0 Urinary tract infection, site not specified; K76.0 Fatty (change of) liver, not elsewhere classified; K44.9 Diaphragmatic hernia without obstruction or gangrene; G43.909 Migraine, unspecified, not intractable, without status migrainosus; F17.200 Nicotine dependence, unspecified, uncomplicated; Z88.2 Allergy status to sulfonamides; Z91.048 Other nonmedicinal substance allergy status; Z79.2 Long term (current) use of antibiotics; Z79.83 Long term (current) use of bisphosphonates; Z79.899 Other long term (current) drug therapy
CPT/HCPCS: 74177; 80048; 80076; 81001; 83690; 84702; 85025; 87086; 96374; 96375; 99284; J2405; J2765; Q9967

== ENCOUNTER → 2024-03-18 | Outpatient (CLI) | payer OTHER ==
[~2024-03-18] MED LIST changes: +MACR100C43 PO
[2024-03-18 18:41] LABS: APPEARANCE, URINE CLOUDY (CLEAR); BACTERIA, URINE AUTO NEGATIVE (NEGATIVE); BILIRUBIN, URINE AUTO 1+ (NEGATIVE); BLOOD, URINE BLOOD NEGATIVE (NEGATIVE); COLOR, URINE AMBER (YELLOW); GLUCOSE, URINE (UA) AUTO NEGATIVE (NEGATIVE); KETONE, URINE AUTO TRACE mg/dL (NEGATIVE); LEUKOCYTE ESTERASE, URINE AUTO TRACE (NEGATIVE); MUCUS, URINE MODERATE (NEGATIVE); NITRITE, URINE AUTO NEGATIVE (NEGATIVE); PROTEIN, URINE AUTO 2+ mg/dL (NEGATIVE); RBC, URINE AUTO 1 /HPF (0-3); SPECIFIC GRAVITY URINE AUTO 1.032 (1.002-1.035); SQUAMOUS EPITHELIAL CELL UR AU 62 /HPF (0-6); WBC, URINE AUTO 12 /HPF (0-3)
[2024-03-18 19:02] LABS: CHOLESTEROL RISK RATIO 4.65 (<5); HDL CHOLESTEROL 37.8 MG/DL (>40); NON-HDL-C 138.2 MG/DL
[2024-03-18 19:12] LABS: CREATININE, URINE 376.6 MG/DL; MAU/CREAT RATIO 9.8 MCG/MG (0.0-30.0)
[2024-03-18 19:21] LABS: HEMOGLOBIN A1c 6.8 % (4.0-6.0)
== END ==
LOC: M PLALAB 16:35
PROVIDERS: ATTEND Family Medicine
DX: R73.03 Prediabetes (principal); E78.2 Mixed hyperlipidemia; R35.0 Frequency of micturition

== ENCOUNTER 2024-04-07 08:32 | Emergency (ER) | payer OTHER ==
[~2024-04-07] VITALS: Ht 160 cm; Wt 101.3 kg
[2024-04-07] MEDS ORDERED: SEMA0.257 (08:49)
[2024-04-07 12:02] LABS: VENOUS BASE EXCESS 1.8 (-2.0-2.0); VENOUS HCO3 26.2 MMOL/L (23.0-27.0); VENOUS O2 SATURATION 71.3 % (60.0-80.0); VENOUS PARTIAL PRESSURE CO2 40.6 mmHg (38.0-50.0); VENOUS PARTIAL PRESSURE O2 31.1 mmHg (30.0-50.0); VENOUS PH 7.428 UNITS (7.330-7.430); VENOUS STANDARD HCO3 25.2 MMOL/L; VENOUS TOTAL CO2 27.5 MMOL/L (24.0-28.0)
[2024-04-07 12:04] LABS: BASO % 0.2 % (0.0-1.0); EOS % 0.1 % (0.0-3.0); HEMATOCRIT 47.1 % (36.0-47.0); LYMPH # 1.9 10^3/uL (1.5-5.0); LYMPH % 14.4 % (24.0-44.0); MEAN CORPUSCULAR HEMOGLOBIN 28.8 pg (27.0-33.0); MEAN CORPUSCULAR VOLUME 84.9 fl (80.0-96.0); MONO # 0.5 10^3/uL (0.0-0.8); NEUTROPHILS # 10.9 10^3/uL (1.5-8.5); PLATELET COUNT, AUTOMATED 438 10^3/uL (150-450); RED BLOOD COUNT 5.55 10^6/uL (4.00-5.40); WHITE BLOOD COUNT 13.4 10^3/uL (4.0-10.0)
[2024-04-07 12:09] LABS: KETONE, URINE AUTO RFX 1+ mg/dL (NEGATIVE); MUCUS, URINE RFX LARGE (NEGATIVE); NITRITE, URINE AUTO RFX NEGATIVE (NEGATIVE); RBC, URINE AUTO RFX 3 /HPF (0-3); SQUAM EPITHELIAL CELL UR AURFX 12 /HPF (0-6); WBC, URINE AUTO RFX 10 /HPF (0-3)
[2024-04-07 12:10] LABS: LEUKOCYTE ESTERASE UR AUTO RFX TRACE (NEGATIVE)
[2024-04-07 12:35] LABS: ALBUMIN 4.5 G/DL (3.2-5.2); BILIRUBIN,DIRECT 0.2 MG/DL (<0.4); BILIRUBIN,TOTAL 0.5 MG/DL (0.3-1.2); HEMOGLOBIN A1c 6.6 % (4.0-6.0); TOTAL PROTEIN 8.8 G/DL (5.7-8.2)
[2024-04-07] MEDS: ONDANSETRON 4MG ORAL DISINTEGRATING TAB PO ONE (12:43)
[2024-04-07 13:09] LABS: ACETONE/KETONE 0.56 MMOL/L (0.02-0.27)
[2024-04-07] MEDS ORDERED: ISOVUE-370 76% 100ML VIAL As Ordered ONE (13:15)
[2024-04-07] MEDS: ONDANSETRON 4MG 2ML VIAL IV ONE (13:44)
[2024-04-07 14:10] VITALS: TEMP 97.9
[2024-04-07] MEDS: PROMETHAZINE 25MG/ML 1ML VIAL IV ONE (14:49)
[2024-04-07] MEDS: NS 500 ML IV ONE (14:55)
[2024-04-07] MEDS ORDERED: PROM25TA12 PO (16:13)
[2024-04-07 16:22] VITALS: BP 143/83; O2SAT 97
== END 2024-04-07 16:24 | disposition home or self-care (01) ==
LOC: M ED 08:32
DX: R11.2 Nausea with vomiting, unspecified (principal); R51.9 Headache, unspecified; E11.9 Type 2 diabetes mellitus without complications; Z88.2 Allergy status to sulfonamides; Z90.49 Acquired absence of other specified parts of digestive tract; Z11.52 Encounter for screening for COVID-19
CPT/HCPCS: 36415; 74177; 80047; 80076; 81001; 82010; 82803; 83036; 83690; 83930; 84702; 85025; 87086; 87486; 87581; 87633; 87798; 96374; 96375; 99284; J2405; J2550; Q9967

== ENCOUNTER 2024-04-24 08:06 | Emergency (ER) | payer MEDICAID, OTHER ==
[~2024-04-24] VITALS: Ht 160 cm; Wt 101.8 kg
[~2024-04-24 08:06] MED LIST changes: +PROM25TA12 PO; +SEMA0.257
[2024-04-24] MEDS: PROMETHAZINE 25MG/ML 1ML VIAL IV ONE (08:40)
[2024-04-24 09:05] LABS: BASO % 0.3 % (0.0-1.0); EOS % 0.4 % (0.0-3.0); HEMATOCRIT 46.3 % (36.0-47.0); HEMOGLOBIN 15.5 g/dl (12.0-15.5); LYMPH # 1.9 10^3/uL (1.5-5.0); LYMPH % 21.8 % (24.0-44.0); MEAN CORPUSCULAR HGB CONC 33.5 g/dl (32.0-36.5); MEAN CORPUSCULAR VOLUME 86.7 fl (80.0-96.0); MONO # 0.3 10^3/uL (0.0-0.8); MONO % 3.7 % (2.0-8.0); NEUTROPHILS # 6.5 10^3/uL (1.5-8.5); NEUTROPHILS % 73.2 % (36.0-66.0); PLATELET COUNT, AUTOMATED 388 10^3/uL (150-450); RED BLOOD COUNT 5.34 10^6/uL (4.00-5.40); WHITE BLOOD COUNT 8.9 10^3/uL (4.0-10.0)
[2024-04-24 09:21] LABS: LIPASE 26 U/L (12-53)
[2024-04-24 09:23] LABS: ALBUMIN 3.8 G/DL (3.2-5.2); ALKALINE PHOSPHATASE 110 U/L (35-104); ALT/SGPT 33 U/L (7.0-40); AST/SGOT 19 U/L (<34); BILIRUBIN,DIRECT 0.1 MG/DL (<0.4); BILIRUBIN,TOTAL 0.4 MG/DL (0.3-1.2); BLOOD UREA NITROGEN 10 MG/DL (9-23); CALCIUM LEVEL 9.7 MG/DL (8.5-10.1); CARBON DIOXIDE LEVEL 27 MMOL/L (20-31); CHLORIDE LEVEL 104 MMOL/L (98-107); CREATININE FOR GFR 0.77 MG/DL (0.55-1.30); GLOMERULAR FILTRATION RATE > 60.0 (>60); GLUCOSE, FASTING 139 MG/DL (60-100); POTASSIUM SERUM 3.7 MMOL/L (3.5-5.1); SODIUM LEVEL 143 MMOL/L (136-145); TOTAL PROTEIN 7.7 G/DL (5.7-8.2)
[2024-04-24 10:16] VITALS: BP 137/80; TEMP 97.8; O2SAT 99
== END 2024-04-24 10:29 | disposition home or self-care (01) ==
LOC: M ED 08:06
DX: R11.10 Vomiting, unspecified (principal); R19.7 Diarrhea, unspecified; G43.909 Migraine, unspecified, not intractable, without status migrainosus; I10 Essential (primary) hypertension; K21.9 Gastro-esophageal reflux disease without esophagitis; E11.9 Type 2 diabetes mellitus without complications; F41.9 Anxiety disorder, unspecified; F31.9 Bipolar disorder, unspecified; F43.10 Post-traumatic stress disorder, unspecified; F17.200 Nicotine dependence, unspecified, uncomplicated; Z88.2 Allergy status to sulfonamides; Z91.048 Other nonmedicinal substance allergy status; Z79.2 Long term (current) use of antibiotics; Z79.83 Long term (current) use of bisphosphonates; Z79.899 Other long term (current) drug therapy
CPT/HCPCS: 80048; 80076; 83690; 85025; 96374; 99284; J2550

== ENCOUNTER → 2024-05-02 | Outpatient (CLI) | payer OTHER ==
[~2024-05-02] MED LIST changes: +E-Z-GAS II EFFERVESCENT PACKET (SODIUM BICARB./CITRIC ACID/SIMETHICONE) As Ordered ONE; +E-Z-HD 98% w/w 340GM SUSP BTL As Ordered ONE; +E-Z-PAQUE 96% w/w SUSP 176GM BTL As Ordered ONE
== END ==
LOC: M RAD 08:27
PROVIDERS: ATTEND Family Medicine
DX: K21.9 Gastro-esophageal reflux disease without esophagitis (principal); K44.9 Diaphragmatic hernia without obstruction or gangrene; J39.2 Other diseases of pharynx

== ENCOUNTER 2024-05-07 04:32 | Emergency (ER) | payer OTHER ==
[~2024-05-07] VITALS: Ht 160 cm; Wt 100.9 kg
[~2024-05-07 04:32] MED LIST changes: -E-Z-GAS II EFFERVESCENT PACKET (SODIUM BICARB./CITRIC ACID/SIMETHICONE) As Ordered ONE; -E-Z-HD 98% w/w 340GM SUSP BTL As Ordered ONE; -E-Z-PAQUE 96% w/w SUSP 176GM BTL As Ordered ONE
[2024-05-07 04:58] LABS: BASO % 0.3 % (0.0-1.0); EOS % 0.3 % (0.0-3.0); HEMATOCRIT 45.3 % (36.0-47.0); HEMOGLOBIN 15.2 g/dl (12.0-15.5); LYMPH # 1.8 10^3/uL (1.5-5.0); LYMPH % 16.7 % (24.0-44.0); MEAN CORPUSCULAR HEMOGLOBIN 29.1 pg (27.0-33.0); MEAN CORPUSCULAR HGB CONC 33.6 g/dl (32.0-36.5); MEAN CORPUSCULAR VOLUME 86.6 fl (80.0-96.0); MONO # 0.4 10^3/uL (0.0-0.8); NEUTROPHILS # 8.6 10^3/uL (1.5-8.5); NEUTROPHILS % 78.4 % (36.0-66.0); PLATELET COUNT, AUTOMATED 389 10^3/uL (150-450); RED BLOOD COUNT 5.23 10^6/uL (4.00-5.40); WHITE BLOOD COUNT 10.9 10^3/uL (4.0-10.0)
[2024-05-07 05:21] LABS: CK-MB VALUE MASS < 1.0 NG/ML (<3.6)
[2024-05-07 05:23] LABS: BLOOD UREA NITROGEN 7 MG/DL (9-23); CALCIUM LEVEL 9.3 MG/DL (8.5-10.1); CARBON DIOXIDE LEVEL 24 MMOL/L (20-31); CHLORIDE LEVEL 103 MMOL/L (98-107); CREATININE FOR GFR 0.73 MG/DL (0.55-1.30); GLOMERULAR FILTRATION RATE > 60.0 (>60); GLUCOSE, FASTING 134 MG/DL (60-100); POTASSIUM SERUM 3.8 MMOL/L (3.5-5.1); SODIUM LEVEL 142 MMOL/L (136-145)
[2024-05-07 05:33] LABS: CPK CREATINE PHOSPHOKINASE 71 U/L (34-145)
[2024-05-07] MEDS: KETOROLAC 30 MG/ML 1ML VIAL IV ONE (05:50)
[2024-05-07] MEDS: ONDANSETRON 4MG 2ML VIAL IV ONE (05:50)
[2024-05-07 06:37] LABS: ALBUMIN 3.7 G/DL (3.2-5.2); ALKALINE PHOSPHATASE 99 U/L (35-104); ALT/SGPT 35 U/L (7.0-40); AST/SGOT 67 U/L (<34); BILIRUBIN,DIRECT 0.1 MG/DL (<0.4); BILIRUBIN,TOTAL 0.5 MG/DL (0.3-1.2); CK-MB VALUE MASS < 1.0 NG/ML (<3.6); CPK CREATINE PHOSPHOKINASE 108 U/L (34-145); LIPASE 30 U/L (12-53); MB/CK RELATIVE INDEX 0.92 (< OR =4); TOTAL PROTEIN 7.7 G/DL (5.7-8.2)
[2024-05-07] MEDS: PROMETHAZINE 25MG/ML 1ML VIAL IV ONE (08:46)
[2024-05-07 11:45] VITALS: BP 139/74; TEMP 97.6; O2SAT 94
== END 2024-05-07 11:45 | disposition home or self-care (01) ==
LOC: EDBD 04:32 → M ED 04:32
DX: R11.2 Nausea with vomiting, unspecified (principal); R00.0 Tachycardia, unspecified; I10 Essential (primary) hypertension; K21.9 Gastro-esophageal reflux disease without esophagitis; G43.909 Migraine, unspecified, not intractable, without status migrainosus; F17.200 Nicotine dependence, unspecified, uncomplicated; F12.10 Cannabis abuse, uncomplicated; F25.9 Schizoaffective disorder, unspecified; Z88.2 Allergy status to sulfonamides; Z91.048 Other nonmedicinal substance allergy status; Z79.83 Long term (current) use of bisphosphonates; Z79.899 Other long term (current) drug therapy
CPT/HCPCS: 80048; 80076; 82550; 82553; 83690; 84484; 85025; 87486; 87581; 87633; 87798; 93005; 93041; 94760; 96374; 96375; 99285; J1885; J2405; J2550

== ENCOUNTER 2024-05-19 08:23 | Emergency (ER) | payer OTHER ==
[~2024-05-19] VITALS: Ht 160 cm; Wt 100.4 kg
[2024-05-19 09:37] LABS: BASO % 0.2 % (0.0-1.0); EOS % 0.2 % (0.0-3.0); HEMATOCRIT 45.3 % (36.0-47.0); HEMOGLOBIN 15.3 g/dl (12.0-15.5); LYMPH # 1.1 10^3/uL (1.5-5.0); LYMPH % 8.6 % (24.0-44.0); MEAN CORPUSCULAR HEMOGLOBIN 28.7 pg (27.0-33.0); MEAN CORPUSCULAR HGB CONC 33.8 g/dl (32.0-36.5); MEAN CORPUSCULAR VOLUME 84.8 fl (80.0-96.0); MONO # 0.3 10^3/uL (0.0-0.8); MONO % 2.5 % (2.0-8.0); NEUTROPHILS # 11.5 10^3/uL (1.5-8.5); NEUTROPHILS % 87.6 % (36.0-66.0); PLATELET COUNT, AUTOMATED 408 10^3/uL (150-450); RED BLOOD COUNT 5.34 10^6/uL (4.00-5.40); WHITE BLOOD COUNT 13.1 10^3/uL (4.0-10.0)
[2024-05-19 10:01] LABS: KETONE, URINE AUTO RFX 1+ mg/dL (NEGATIVE); LEUKOCYTE ESTERASE UR AUTO RFX NEGATIVE (NEGATIVE); MUCUS, URINE RFX SMALL (NEGATIVE); NITRITE, URINE AUTO RFX NEGATIVE (NEGATIVE); RBC, URINE AUTO RFX 0 /HPF (0-3); SQUAM EPITHELIAL CELL UR AURFX 11 /HPF (0-6); WBC, URINE AUTO RFX 4 /HPF (0-3)
[2024-05-19 10:17] LABS: ALBUMIN 3.8 G/DL (3.2-5.2); ALKALINE PHOSPHATASE 111 U/L (35-104); ALT/SGPT 35 U/L (7.0-40); AST/SGOT 29 U/L (<34); BILIRUBIN,DIRECT < 0.1 MG/DL (<0.4); BILIRUBIN,TOTAL 0.3 MG/DL (0.3-1.2); BLOOD UREA NITROGEN 9 MG/DL (9-23); CALCIUM LEVEL 9.5 MG/DL (8.5-10.1); CARBON DIOXIDE LEVEL 25 MMOL/L (20-31); CHLORIDE LEVEL 102 MMOL/L (98-107); CREATININE FOR GFR 0.54 MG/DL (0.55-1.30); GLOMERULAR FILTRATION RATE > 60.0 (>60); GLUCOSE, FASTING 139 MG/DL (60-100); LIPASE 25 U/L (12-53); POTASSIUM SERUM 4.5 MMOL/L (3.5-5.1); SODIUM LEVEL 141 MMOL/L (136-145); TOTAL PROTEIN 7.7 G/DL (5.7-8.2)
[2024-05-19 10:22] LABS: HCG, SERUM QUALITATIVE NEGATIVE (NEGATIVE)
[2024-05-19] MEDS: ONDANSETRON 4MG 2ML VIAL IV ONE (10:30)
[2024-05-19] MEDS: METOCLOPRAMIDE INJ 10MG/2ML VIAL IV ONE (12:03)
[2024-05-19] MEDS ORDERED: ISOVUE-370 76% 100ML VIAL As Ordered ONE (12:29)
[2024-05-19] MEDS ORDERED: REGL10TA6 PO (13:51)
[2024-05-19 14:23] VITALS: BP 118/68; TEMP 98.3; O2SAT 95
== END 2024-05-19 14:25 | disposition home or self-care (01) ==
LOC: M ED 08:23
DX: R11.10 Vomiting, unspecified (principal); E11.9 Type 2 diabetes mellitus without complications; I10 Essential (primary) hypertension; F31.9 Bipolar disorder, unspecified; G43.909 Migraine, unspecified, not intractable, without status migrainosus; F17.200 Nicotine dependence, unspecified, uncomplicated; F12.10 Cannabis abuse, uncomplicated; Z88.2 Allergy status to sulfonamides; Z91.048 Other nonmedicinal substance allergy status; Z79.83 Long term (current) use of bisphosphonates; Z79.899 Other long term (current) drug therapy
CPT/HCPCS: 74177; 80048; 80076; 81001; 83690; 84703; 85025; 96374; 96375; 99284; J2405; J2765; Q9967

== ENCOUNTER → 2024-07-15 | Outpatient (CLI) | payer OTHER ==
[2024-07-15 11:05] LABS: ALBUMIN 3.4 G/DL (3.2-5.2); ALKALINE PHOSPHATASE 113 U/L (35-104); ALT/SGPT 38 U/L (7.0-40); AST/SGOT 17 U/L (<34); BILIRUBIN,TOTAL 0.2 MG/DL (0.3-1.2); BLOOD UREA NITROGEN 9 MG/DL (9-23); CALCIUM LEVEL 9.4 MG/DL (8.5-10.1); CARBON DIOXIDE LEVEL 32 MMOL/L (20-31); CHLORIDE LEVEL 103 MMOL/L (98-107); CREATININE FOR GFR 0.72 MG/DL (0.55-1.30); GLOMERULAR FILTRATION RATE > 90.0 (>60); GLUCOSE, FASTING 134 MG/DL (60-100); POTASSIUM SERUM 3.6 MMOL/L (3.5-5.1); SODIUM LEVEL 142 MMOL/L (136-145); TOTAL PROTEIN 6.5 G/DL (5.7-8.2)
[2024-07-15 11:07] LABS: HEMOGLOBIN A1c 5.6 % (4.0-6.0)
== END ==
LOC: M PLALAB 08:26
PROVIDERS: ATTEND Family Medicine
DX: E11.9 Type 2 diabetes mellitus without complications (principal)

== ENCOUNTER 2024-09-17 07:38 | Emergency (ER) | payer MEDICAID, OTHER ==
[~2024-09-17] VITALS: Ht 160 cm; Wt 87.8 kg
[~2024-09-17 07:38] MED LIST changes: -CETI-24; +CETI-24 PO; -HYDR50TA70; +METO10TA2 PO; -OLAN1TAB70; +QUET50TA4 PO; +SEMA2PEN SQ
[2024-09-17 07:40] VITALS: TEMP 97.4
[2024-09-17 10:51] LABS: BASO # 0.0 10^3/uL (0.0-0.2); BASO % 0.2 % (0.0-1.0); EOS # 0.0 10^3/uL (0.0-0.5); EOS % 0.1 % (0.0-3.0); LYMPH # 2.1 10^3/uL (1.5-5.0); LYMPH % 16.6 % (24.0-44.0); MONO # 0.5 10^3/uL (0.0-0.8); MONO % 3.9 % (2.0-8.0); NEUTROPHILS # 9.8 10^3/uL (1.5-8.5); NEUTROPHILS % 78.9 % (36.0-66.0); PLATELET COUNT, AUTOMATED 417 10^3/uL (150-450)
[2024-09-17] MEDS: ONDANSETRON 4MG 2ML VIAL IV ONE (10:51)
[2024-09-17] MEDS: KETOROLAC 30 MG/ML 1 ML VIAL IV ONE (10:53)
[2024-09-17] MEDS ORDERED: ISOVUE-370 76% 100 ML VIAL As Ordered ONE (11:05)
[2024-09-17 11:33] LABS: ALT/SGPT 38.0 U/L (7.0-40); AST/SGOT 22.0 U/L (<34)
[2024-09-17] MEDS ORDERED: ONDA-282 PO (13:53)
[2024-09-17 14:00] VITALS: BP 128/75
[2024-09-17 14:08] VITALS: O2SAT 98
== END 2024-09-17 14:21 | disposition home or self-care (01) ==
LOC: M ED 07:38
DX: K52.9 Noninfective gastroenteritis and colitis, unspecified (principal); Z88.2 Allergy status to sulfonamides; E11.9 Type 2 diabetes mellitus without complications; I10 Essential (primary) hypertension; F31.9 Bipolar disorder, unspecified; G43.909 Migraine, unspecified, not intractable, without status migrainosus; F20.2 Catatonic schizophrenia; Z90.49 Acquired absence of other specified parts of digestive tract; F17.200 Nicotine dependence, unspecified, uncomplicated; K76.0 Fatty (change of) liver, not elsewhere classified; K42.9 Umbilical hernia without obstruction or gangrene
CPT/HCPCS: 36415; 74177; 80047; 80076; 83690; 85025; 93005; 96374; 96375; 99285; J1885; J2405; Q9967

== ENCOUNTER → 2024-11-14 | Outpatient (CLI) | payer OTHER ==
[~2024-11-14] MED LIST changes: -VERA120C3 PO; +VERA120C9 PO
[2024-11-14 10:53] LABS: BASO # 0.1 10^3/uL (0.0-0.2); BASO % 0.5 % (0.0-1.0); EOS # 0.3 10^3/uL (0.0-0.5); EOS % 2.9 % (0.0-3.0); LYMPH # 3.4 10^3/uL (1.5-5.0); LYMPH % 32.6 % (24.0-44.0); MONO # 0.6 10^3/uL (0.0-0.8); MONO % 5.7 % (2.0-8.0); NEUTROPHILS # 6.1 10^3/uL (1.5-8.5); NEUTROPHILS % 57.8 % (36.0-66.0); PLATELET COUNT, AUTOMATED 342 10^3/uL (150-450)
[2024-11-14 11:12] LABS: ESTIMATED AVERAGE GLUCOSE 117.0 MG/DL (60-110)
== END ==
LOC: M PLALAB 08:28
PROVIDERS: ATTEND Family Medicine
DX: E11.9 Type 2 diabetes mellitus without complications (principal)

== ENCOUNTER 2024-12-25 08:34 | Emergency (ER) | payer MEDICAID, OTHER ==
[~2024-12-25] VITALS: Ht 160 cm; Wt 89.4 kg
[2024-12-25] MEDS ORDERED: SEMA0.257 SQ (08:43)
[2024-12-25] MEDS ORDERED: FAMO40TA3 (08:43)
[2024-12-25] MEDS ORDERED: OMEP-173 (08:43)
[2024-12-25] MEDS ORDERED: CLOBETASOL (08:43)
[2024-12-25] MEDS ORDERED: LEVOTAB10 (08:43)
[2024-12-25 09:34] LABS: BASO # 0.0 10^3/uL (0.0-0.2); BASO % 0.4 % (0.0-1.0); EOS # 0.0 10^3/uL (0.0-0.5); EOS % 0.4 % (0.0-3.0); LYMPH # 1.6 10^3/uL (1.5-5.0); LYMPH % 17.9 % (24.0-44.0); MONO # 0.4 10^3/uL (0.0-0.8); MONO % 4.8 % (2.0-8.0); NEUTROPHILS # 7.0 10^3/uL (1.5-8.5); NEUTROPHILS % 76.2 % (36.0-66.0); PLATELET COUNT, AUTOMATED 365 10^3/uL (150-450)
[2024-12-25] MEDS: NS (Normal Saline) 0.9% 1,000 ML IV ONE (09:44)
[2024-12-25] MEDS: ACETAMINOPHEN *IV* 1,000 MG in IV 1 EA IV ONE (09:45)
[2024-12-25 09:53] LABS: KETONE, URINE AUTO RFX 1+ mg/dL (NEGATIVE); LEUKOCYTE ESTERASE UR AUTO RFX NEGATIVE (NEGATIVE); MUCUS, URINE RFX LARGE (NEGATIVE); NITRITE, URINE AUTO RFX NEGATIVE (NEGATIVE); RBC, URINE AUTO RFX 6 /HPF (0-3); SQUAM EPITHELIAL CELL UR AURFX 22 /HPF (0-6); WBC, URINE AUTO RFX 3 /HPF (0-3)
[2024-12-25 09:54] LABS: ALT/SGPT 25 U/L (7.0-40); AST/SGOT 17 U/L (<34); C REACTIVE PROTEIN QUANTITATIV 3.89 MG/DL (<1.0); CALCIUM LEVEL 9.1 MG/DL (8.5-10.1); CARBON DIOXIDE LEVEL 22 MMOL/L (20-31); CHLORIDE LEVEL 106 MMOL/L (98-107); CREATININE FOR GFR 0.79 MG/DL (0.55-1.30); GLOMERULAR FILTRATION RATE > 90.0 (>60); POTASSIUM SERUM 3.9 MMOL/L (3.5-5.1); SODIUM LEVEL 139 MMOL/L (136-145)
[2024-12-25] MEDS ORDERED: DULO30CA9 PO (10:17)
[2024-12-25] MEDS ORDERED: DICL1PAT6 TD (10:17)
[2024-12-25 10:26] LABS: HIV 1&2 SCREEN NEGATIVE (NEGATIVE)
[2024-12-25 10:58] LABS: Trichomonas vaginalis (AMP) NOT DETECTED (NEGATIVE)
[2024-12-25 11:22] LABS: GC DNA AMPLIFICATION NEGATIVE (NEGATIVE)
[2024-12-25] MEDS ORDERED: PROBCAP2 PO (12:05)
[2024-12-25] MEDS ORDERED: CLIN150C17 PO (12:05)
[2024-12-25] MEDS ORDERED: MUPI2OI TOP (12:05)
[2024-12-25 12:12] VITALS: BP 114/56; TEMP 98.7; O2SAT 97
== END 2024-12-25 12:30 | disposition home or self-care (01) ==
LOC: M ED 08:34
DX: L01.01 Non-bullous impetigo (principal); L30.4 Erythema intertrigo; E11.9 Type 2 diabetes mellitus without complications; G43.909 Migraine, unspecified, not intractable, without status migrainosus; F25.9 Schizoaffective disorder, unspecified; R01.1 Cardiac murmur, unspecified; F12.10 Cannabis abuse, uncomplicated; Z88.2 Allergy status to sulfonamides; Z91.048 Other nonmedicinal substance allergy status; Z79.899 Other long term (current) drug therapy; Z79.2 Long term (current) use of antibiotics
CPT/HCPCS: 71045; 80048; 80076; 81001; 82150; 83605; 84145; 85025; 86140; 86780; 87040; 87070; 87077; 87186; 87205; 87389; 87661; 87810; 87850; 93005; 93041; 94760; 96365; 96366; 99285; J0131

== ENCOUNTER 2025-01-24 12:32 | Emergency (ER) | payer MEDICAID, OTHER ==
[~2025-01-24] VITALS: Ht 160 cm; Wt 86.4 kg
[~2025-01-24 12:32] MED LIST changes: +CLIN150C17 PO; +CLOBETASOL; +DICL1PAT6 TD; +DULO30CA9 PO; +FAMO40TA3 PO; +LEVOTAB10 PO; +MUPI2OI TOP; +OMEP-173 PO; +PROBCAP2 PO; +SEMA0.257 SQ
[2025-01-24] MEDS: MUPIROCIN 2% OINT 22 GM TUBE TOP ONE (16:43)
[2025-01-24 16:45] VITALS: BP 130/68; TEMP 96.4; O2SAT 100
== END 2025-01-24 16:48 | disposition home or self-care (01) ==
LOC: M ED 12:32
DX: L60.0 Ingrowing nail (principal); K21.9 Gastro-esophageal reflux disease without esophagitis; E11.9 Type 2 diabetes mellitus without complications; I10 Essential (primary) hypertension; G43.909 Migraine, unspecified, not intractable, without status migrainosus; Z88.2 Allergy status to sulfonamides; Z91.09 Other allergy status, other than to drugs and biological substances; Z79.2 Long term (current) use of antibiotics; Z79.899 Other long term (current) drug therapy

== ENCOUNTER 2025-01-30 09:08 | Inpatient (IN) | payer OTHER ==
[~2025-01-30] VITALS: Ht 160 cm; Wt 82.1 kg
[2025-01-30 09:51] LABS: PLATELET COUNT, AUTOMATED 405 10^3/uL (150-450)
[2025-01-30 10:15] LABS: ETHYL ALCOHOL (ETHANOL) < 0.003 % (0.000-0.010); HCG, SERUM QUALITATIVE NEGATIVE (NEGATIVE)
[2025-01-30 10:17] LABS: ALT/SGPT 38 U/L (7.0-40); AST/SGOT 26 U/L (<34); CALCIUM LEVEL 9.3 MG/DL (8.5-10.1); CARBON DIOXIDE LEVEL 26 MMOL/L (20-31); CHLORIDE LEVEL 109 MMOL/L (98-107); CREATININE FOR GFR 0.74 MG/DL (0.55-1.30); GLOMERULAR FILTRATION RATE > 90.0 (>60); POTASSIUM SERUM 4.0 MMOL/L (3.5-5.1); SALICYLATE LEVEL < 3.0 MG/DL (<30); SODIUM LEVEL 145 MMOL/L (136-145)
[2025-01-30 10:28] LABS: AMPHETAMINES LEVEL URINE NEGATIVE (NEGATIVE)
[2025-01-30 10:29] LABS: BARBITURATES URINE NEGATIVE (NEGATIVE)
[2025-01-30 10:30] LABS: BENZODIAZEPINES URINE NEGATIVE (NEGATIVE); METHADONE URINE NEGATIVE (NEGATIVE); OPIATES URINE NEGATIVE (NEGATIVE); PHENCYCLIDINE URINE NEGATIVE (NEGATIVE)
[2025-01-30 10:31] LABS: CANNABINOIDS URINE POSITIVE (NEGATIVE); COCAINE METABOLITE URINE POSITIVE (NEGATIVE)
[2025-01-30] MEDS ORDERED: MOM 30 ML SUSPENSION UDC PO PRN (13:05)
[2025-01-30] MEDS ORDERED: SEMA1PEN2 INJ (14:03)
[2025-01-30] MEDS ORDERED: OMEP40CA5 PO (14:03)
[2025-01-30] MEDS ORDERED: OLAN1TAB70 PO (14:03)
[2025-01-30] MEDS ORDERED: LINZ290C PO (14:03)
[2025-01-30] MEDS ORDERED: CLOB0.0548 TOP (14:05)
[2025-01-30] MEDS ORDERED: HOME MED LIST COMPLETE! XX SCH (14:10)
[2025-01-30 16:15] VITALS: BP 157/73; TEMP 97.4; O2SAT 100
[2025-01-30] MEDS: QUEtiapine FUMARATE 50MG TAB PO SCH (21:29)
[2025-01-30] MEDS: GABAPENTIN 300 MG CAP PO SCH (21:30)
[2025-01-30] MEDS: FAMOTIDINE 20 MG TAB PO SCH (21:30)
[2025-01-30] MEDS: OMEPRAZOLE 20MG CAP PO SCH (21:30)
[2025-01-31] MEDS: ACETAMINOPHEN 325 MG TAB PO PRN (00:31)
[2025-01-31] MEDS: traZODone 50 MG TAB PO PRN (00:31)
[2025-01-31 06:28] VITALS: TEMP 97.2; O2SAT 98
[2025-01-31 08:18] VITALS: BP 131/70
[2025-01-31] MEDS: ESCITALOPRAM OXALATE 10 MG TABLET PO SCH (08:22)
[2025-01-31] MEDS: NICOTINE 21 MG/24 HR 1 EA TRANSDERMAL TD SCH (08:24)
[2025-01-31] MEDS: DOCUSATE SOD LIQ 100 MG/10 ML UDC PO SCH (08:49)
[2025-01-31] MEDS ORDERED: BUPRENORPHINE/NALOXONE 2-0.5MG SUBLINGUAL TABLET(SUBOXONE) SL SCH (09:00)
[2025-01-31] MEDS ORDERED: LOPERAMIDE 2 MG CAPLET PO PRN (10:10)
[2025-01-31] MEDS: LOPERAMIDE 2 MG CAPLET PO ONE (10:29)
[2025-01-31 15:34] VITALS: BP 135/67; TEMP 97.6; O2SAT 98
[2025-01-31] MEDS ORDERED: CLIN1PAD2 TOP (17:13)
[2025-01-31] MEDS ORDERED: TACR0.1O4 TOP ×2 (17:13)
[2025-01-31] MEDS: GABAPENTIN 300 MG CAP PO SCH (20:29)
[2025-01-31] MEDS: IBUPROFEN 400 MG TAB PO PRN (20:30)
[2025-02-01] MEDS: ONDANSETRON 4MG ORAL DISINTEGRATING TAB PO PRN (05:13)
[2025-02-01 06:15] VITALS: BP 132/89; TEMP 97; O2SAT 98
[2025-02-01] MEDS: ESCITALOPRAM OXALATE 10 MG TABLET PO SCH (08:05)
[2025-02-01] MEDS: PILL CUTTER 1 EACH XX PRN (08:05)
[2025-02-01 15:51] VITALS: BP 137/76; TEMP 96.7; O2SAT 98
[2025-02-02 06:11] VITALS: BP 133/72; TEMP 96.5; O2SAT 99
[2025-02-02] MEDS: ESCITALOPRAM OXALATE 5 MG TABLET PO SCH (08:33)
[2025-02-02] MEDS: DOCUSATE SODIUM 100 MG CAPSULE PO SCH (08:41)
[2025-02-02 15:49] VITALS: BP 141/77; TEMP 97.6; O2SAT 100
[2025-02-03 06:26] VITALS: BP 142/71; TEMP 97; O2SAT 100
[2025-02-03] MEDS: DIVALPROEX 250 MG TAB PO SCH (10:19)
[2025-02-03 17:03] VITALS: BP 155/65; TEMP 97; O2SAT 99
[2025-02-04 06:27] VITALS: BP 122/58; TEMP 97.6; O2SAT 97
[2025-02-04 15:17] VITALS: BP 132/71; TEMP 97.6; O2SAT 99
[2025-02-05 06:28] VITALS: BP 132/64; TEMP 97.6; O2SAT 98
[2025-02-05 15:06] VITALS: BP 121/66; TEMP 97; O2SAT 98
[2025-02-06] MEDS: MAALOX 30 ML SUSP *UDC PO PRN (02:58)
[2025-02-06 06:30] VITALS: BP 154/88; TEMP 97; O2SAT 99
[2025-02-06 08:13] VITALS: BP 114/62
[2025-02-06] MEDS: LIDOCAINE 5% PATCH TD SCH (13:07)
[2025-02-06 15:22] VITALS: BP 110/64; TEMP 97.7; O2SAT 99
[2025-02-06] MEDS: DIVALPROEX 500 MG TAB PO SCH (20:13)
[2025-02-06] MEDS: PRAZOSIN 1 MG CAP PO SCH (20:15)
[2025-02-07 06:35] VITALS: BP 127/72; TEMP 97; O2SAT 100
[2025-02-07] MEDS ORDERED: LIDO5TD TD (06:58)
[2025-02-07] MEDS ORDERED: DIVA-41 PO (06:58)
[2025-02-07] MEDS ORDERED: HYDR50TA70 PO (06:58)
[2025-02-07] MEDS ORDERED: CLONI1TA PO (06:58)
[2025-02-07] MEDS ORDERED: PRAZ1CAP PO (06:58)
[2025-02-07] MEDS ORDERED: QUET100T2 PO (06:58)
[2025-02-07 08:22] VITALS: BP 127/72
== END 2025-02-07 11:49 | disposition home or self-care (01) | DRG 750 ==
LOC: M ED 09:08 → M ED INP 13:01 → M PSY 16:07
PROVIDERS: ADMIT General Practice; ATTEND General Practice
DX: F25.0 Schizoaffective disorder, bipolar type (principal); F41.0 Panic disorder [episodic paroxysmal anxiety]; F60.3 Borderline personality disorder; Z88.2 Allergy status to sulfonamides; I10 Essential (primary) hypertension; M54.50 Low back pain, unspecified; Z79.899 Other long term (current) drug therapy; F10.10 Alcohol abuse, uncomplicated; G43.909 Migraine, unspecified, not intractable, without status migrainosus; K21.9 Gastro-esophageal reflux disease without esophagitis; E78.5 Hyperlipidemia, unspecified; K76.0 Fatty (change of) liver, not elsewhere classified; F17.200 Nicotine dependence, unspecified, uncomplicated; L40.9 Psoriasis, unspecified; E66.9 Obesity, unspecified; E11.9 Type 2 diabetes mellitus without complications; Z91.148 Patient's other noncompliance with medication regimen for other reason; F43.10 Post-traumatic stress disorder, unspecified; Z91.410 Personal history of adult physical and sexual abuse; R45.851 Suicidal ideations; R45.850 Homicidal ideations; F11.90 Opioid use, unspecified, uncomplicated; F12.90 Cannabis use, unspecified, uncomplicated; F15.90 Other stimulant use, unspecified, uncomplicated

== ENCOUNTER 2025-02-16 16:08 | Inpatient (IN) | payer MEDICAID, OTHER ==
[~2025-02-16] VITALS: Ht 160 cm; Wt 90.4 kg
[~2025-02-16 16:08] MED LIST changes: +CLIN1PAD2 TOP; +CLOB0.0548 TOP; +CLONI1TA PO; +DIVA-41 PO; +LINZ290C PO; +OMEP40CA5 PO; +PRAZ1CAP PO; +SEMA1PEN2 INJ; +TACR0.1O4 TOP
[2025-02-16 17:38] LABS: PLATELET COUNT, AUTOMATED 313 10^3/uL (150-450)
[2025-02-16 18:01] LABS: AMPHETAMINES LEVEL URINE NEGATIVE (NEGATIVE); BARBITURATES URINE NEGATIVE (NEGATIVE); BENZODIAZEPINES URINE NEGATIVE (NEGATIVE)
[2025-02-16 18:02] LABS: COCAINE METABOLITE URINE NEGATIVE (NEGATIVE); ETHYL ALCOHOL (ETHANOL) < 0.003 % (0.000-0.010); HCG, SERUM QUALITATIVE NEGATIVE (NEGATIVE); METHADONE URINE NEGATIVE (NEGATIVE); OPIATES URINE NEGATIVE (NEGATIVE); PHENCYCLIDINE URINE NEGATIVE (NEGATIVE)
[2025-02-16 18:03] LABS: SALICYLATE LEVEL < 3.0 MG/DL (<30)
[2025-02-16 18:04] LABS: ALT/SGPT 25 U/L (7.0-40); AST/SGOT 17 U/L (<34); CALCIUM LEVEL 8.5 MG/DL (8.5-10.1); CARBON DIOXIDE LEVEL 29 MMOL/L (20-31); CHLORIDE LEVEL 107 MMOL/L (98-107); CREATININE FOR GFR 0.61 MG/DL (0.55-1.30); GLOMERULAR FILTRATION RATE > 90.0 (>60); POTASSIUM SERUM 4.2 MMOL/L (3.5-5.1); SODIUM LEVEL 143 MMOL/L (136-145)
[2025-02-16 18:08] LABS: CANNABINOIDS URINE POSITIVE (NEGATIVE)
[2025-02-16] MEDS: GABAPENTIN 300 MG CAP PO ONE (21:03)
[2025-02-16] MEDS: DIVALPROEX 500 MG TAB PO ONE (21:05)
[2025-02-16] MEDS: PRAZOSIN 1 MG CAP PO ONE (21:05)
[2025-02-17] MEDS: IBUPROFEN 400 MG TAB PO ONE (01:05)
[2025-02-17] MEDS: NICOTINE 21 MG/24 HR 1 EA TRANSDERMAL TD SCH (09:00)
[2025-02-17] MEDS ORDERED: DOCUSATE SOD LIQ 100 MG/10 ML UDC PO SCH (09:00)
[2025-02-17] MEDS ORDERED: MOM 30 ML SUSPENSION UDC PO PRN (10:10)
[2025-02-17] MEDS ORDERED: DIVA500T9 PO (10:12)
[2025-02-17] MEDS ORDERED: HOME MED LIST COMPLETE! XX SCH (10:15)
[2025-02-17] MEDS ORDERED: PRAZ2CAP PO (10:17)
[2025-02-17 11:42] VITALS: BP 128/64; TEMP 97.5; O2SAT 100
[2025-02-17] MEDS: DIVALPROEX 500 MG *ER* TAB PO SCH (12:36)
[2025-02-17] MEDS: ESCITALOPRAM OXALATE 10 MG TABLET PO SCH (12:36)
[2025-02-17] MEDS: DOCUSATE SODIUM 100 MG CAPSULE PO SCH (14:41)
[2025-02-17 14:46] VITALS: BP 130/61; TEMP 97.7; O2SAT 98
[2025-02-17] MEDS: GABAPENTIN 300 MG CAP PO SCH (15:18)
[2025-02-17] MEDS: OLANZapine 5 MG TAB PO ONE (16:58)
[2025-02-17] MEDS: CLOBETASOL PROPIONATE EMOLLIENT 0.05% CR 60 GM TOP SCH (20:41)
[2025-02-17] MEDS: IBUPROFEN 400 MG TAB PO PRN (20:44)
[2025-02-18 06:12] VITALS: BP 135/64; TEMP 96.8; O2SAT 100
[2025-02-18] MEDS: ACETAMINOPHEN 325 MG TAB PO PRN (06:58)
[2025-02-18] MEDS: OLANZapine 5 MG TAB PO SCH (09:15)
[2025-02-18 15:22] VITALS: BP 131/58; TEMP 98; O2SAT 98
[2025-02-18] MEDS: traZODone 50 MG TAB PO PRN (23:31)
[2025-02-19 06:16] VITALS: BP 135/69; TEMP 97.4; O2SAT 99
[2025-02-19] MEDS: OLANZapine 10 MG TAB PO ONE (12:19)
[2025-02-19 22:17] VITALS: BP 131/80
[2025-02-20 06:26] VITALS: BP 116/58; TEMP 97; O2SAT 98
[2025-02-20 16:37] VITALS: BP 133/80; TEMP 97.8; O2SAT 100
[2025-02-21 06:28] VITALS: BP 137/87; TEMP 97.4; O2SAT 99
[2025-02-21 15:04] VITALS: BP 129/71; TEMP 98.3; O2SAT 99
[2025-02-21] MEDS: MAALOX 30 ML SUSP *UDC PO PRN (20:20)
[2025-02-22 06:32] VITALS: BP 120/65; TEMP 97.4; O2SAT 97
[2025-02-22 16:22] VITALS: BP 140/63; TEMP 98.2; O2SAT 100
[2025-02-22] MEDS: QUEtiapine FUMARATE 50MG TAB PO SCH (20:16)
[2025-02-22] MEDS ORDERED: QUEtiapine FUMARATE 50MG TAB PO SCH (21:00)
[2025-02-23 06:24] VITALS: BP 118/64; TEMP 96.9; O2SAT 98
[2025-02-23 15:56] VITALS: BP 138/70; TEMP 97.9; O2SAT 100
[2025-02-24 06:28] VITALS: BP 116/70; TEMP 98; O2SAT 99
[2025-02-24] MEDS ORDERED: OLAN1TAB16 PO (10:20)
[2025-02-24] MEDS ORDERED: QUET50TA4 PO (10:20)
== END 2025-02-24 11:34 | disposition home or self-care (01) | DRG 750 ==
LOC: M ED 16:08 → M ED INP 02-17 10:08 → M PSY 02-17 11:42
PROVIDERS: ADMIT General Practice; ATTEND General Practice
DX: F25.9 Schizoaffective disorder, unspecified (principal); E11.9 Type 2 diabetes mellitus without complications; R45.851 Suicidal ideations; F41.1 Generalized anxiety disorder; F43.10 Post-traumatic stress disorder, unspecified; F12.90 Cannabis use, unspecified, uncomplicated; F60.3 Borderline personality disorder; F42.9 Obsessive-compulsive disorder, unspecified; I10 Essential (primary) hypertension; E78.5 Hyperlipidemia, unspecified; G43.909 Migraine, unspecified, not intractable, without status migrainosus; K21.9 Gastro-esophageal reflux disease without esophagitis; M54.9 Dorsalgia, unspecified; G89.29 Other chronic pain; L40.9 Psoriasis, unspecified; F17.210 Nicotine dependence, cigarettes, uncomplicated; F17.290 Nicotine dependence, other tobacco product, uncomplicated; Z79.85 Long-term (current) use of injectable non-insulin antidiabetic drugs; Z91.52 Personal history of nonsuicidal self-harm; Z88.2 Allergy status to sulfonamides; Z79.899 Other long term (current) drug therapy